=== PATIENT | female | born 1935 | race Caucasian/White ===

== ENCOUNTER 2016-11-12 09:27 | Inpatient (IN) ==
--- NOTE | 2016-11-12 10:58 | EKG Report ---
Stationary ECG Study [facility] Test Date: 11/12/2016 9:39:25 AM Pat Name: CRISTIAN BOLAND Department: Room: Gender: F Assistant In Nursing: : 1935 Requested by: Venkatesh Luz Order Number: [id number] Reading MD: VALENTÍN DOMINGUEZ Intervals [place] Rate: 47 P: -28 GA: 126 QRS: -65 QRSD: 162 T: 2 QT: 537 QTc: 500 Interpretive Statements SINUS BRADYCARDIA RIGHT BUNDLE BRANCH BLOCK LEFT ANTERIOR FASCICULAR BLOCK Electronically Signed On 11-13-16 09:19:59 CDT by VALENTÍN DOMINGUEZ [email or web address]
[2016-11-12 11:00] LABS: Basophils % 0.8 % (0.0-0.8); Eosinophils # 0.1 10*3/uL (0.0-0.87); Eosinophils % 2.5 % (0.00-10.9); Hematocrit 28.5 VOL% (35.7-47.0); Hemoglobin 9.6 GM/DL (12.0-16.0); Immature Granulocytes % 0.5 %; Immature Granulocytes Absolute 0.02 #; Lymphocytes # 0.5 10*3/uL (1.4-4.0); Lymphocytes % 11.6 % (21.3-54.2); Mean Corpuscular HGB Conc 33.7 GM/DL (32-36); Mean Corpuscular Hemoglobin 34 PG (27-34); Mean Corpuscular Volume 99.7 FL (87-102); Monocytes # 0.4 10*3/uL (0.11-0.8); Monocytes % 9.8 % (1.7-12.7); Neutrophils % 74.8 % (38.7-73.9); Platelet Count 194 T/CUMM (130-400); Red Blood Count 2.86 MC/CUMM (3.8-5.5); Red Cell Distribution Width 12.3 % (9.3-17.3)
--- NOTE | 2016-11-12 11:08 | XRay Report ---
Referring Physician: Venkatesh Lambert Exam: XR chest 1V portable Date: November 12, 2016 at 10:57 AM Reason: Shortness of breath Comparison: Chest one view portable November 04, 2016 Findings: The cardiac silhouette is again enlarged, and may be an implanted bus driver/monitor. There is also prominent calcified plaque at the thoracic aorta. There are opacities at the right lung base which could represent atelectasis or pneumonia. No pneumothorax is identified, but mild right pleural fluid is suspected. The osseous structures appear stable. Impression: 1. Cardiomegaly. 2. There are opacities at the right lung base which could represent atelectasis or pneumonia. There is also mild right pleural fluid. These findings have slightly increased, and follow-up is recommended to confirm resolution. PROCEDURE INTERPRETED AT [facility] DEPARTMENT OF RADIOLOGY Final Report Signed by: Dr. Xavier Haddad
[2016-11-12 11:20] LABS: Albumin 3.3 G/DL (3.4-5.0); Bilirubin,Total 0.4 MG/DL (0.2-1.0); Calcium 8.5 MG/DL (8.5-10.1); Magnesium 2.2 MG/DL (1.8-2.4); Osmolality,Calculated 268.5 MOS/KG (273-304); Total Protein 5.9 G/DL (6.4-8.3); Troponin I Only 0.026 NG/ML (0.00-0.045)
[2016-11-12 11:22] LABS: Potassium 2.5 MMOL/L (3.5-5.1)
[2016-11-12] MEDS ORDERED: POTASSIUM CHLORIDE 20 MEQ TABLET PO ONE (11:23)
[2016-11-12] MEDS ORDERED: POTASSIUM CHLORIDE 20 MEQ TABLET PO STA (11:26)
--- NOTE | 2016-11-12 11:40 | Emergency Department Note ---
Lionel Vázquez Gwan, am scribing for, and in the presence of, Venkatesh Lambert MD 10:03. Petra Vázquze Phillip K, MD, personally performed the services described in this documentation, ascribed by Alicia Flowers in my presence, and it is both accurate and complete . Arrival - Arrival Chief Complaint: Syncope ED Nursing Triage Note: pt had a icm placed at dr baeza office this am. pt was at [employer] eating when she passed out. +n/v Mode of Arrival: Stretcher Limitations: No Limitations Source: Patient, Family, Old Records Reviewed, RN Notes Reviewed Time Seen by Provider: 11/12/16 09:43 - History of Present Illness HPI Narrative: Pt is a 81 y/o female who presents to the ED for further evaluation of syncopal episode that occurred today. Pt has a PMHx of Femoral Popliteal Bypass Graft, CAD, PVD, DC, HTN, Thyroid disorder, obstructive sleep apnea, COPD and uterine CA. Family stated that pt was present to receive internal monitor today by Dr. Baeza. After procedure, pt and family reported to [facility] for breakfast and before eating pt had syncopal episode. Family conformed that pt became diaphoretic and passed out. 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 Patient confirmed that she felt "funny" right before episode and that she had a NGUYEN when she left the hospital after her procedure. Family confirmed that pt was unresponsive for 4 minutes. No other problems/complaints reported in ED. Onset (ago): minute(s) Consistency: constant Severity: moderate Allergies/Adverse Reactions: Allergies Allergy/AdvReac Type Severity Reaction Status Date / Time adhesive tape Allergy RASH Verified 11/12/16 06:05 Penicillins Allergy RASH Verified 11/12/16 06:05 Sulfa (Sulfonamide Allergy RASH Verified 11/12/16 06:05 Antibiotics) sulfamethoxazole Allergy RASH Verified 11/12/16 06:05 [From Bactrim] trimethoprim [From Bactrim] Allergy RASH Verified 11/12/16 06:05 Home Medications: Home Medications Medication Instructions Recorded Confirmed Type Aspirin [Ecotrin] 81 mg PO QAM 02/24/15 11/12/16 History Labetalol Tab [Trandate Tab] 100 mg PO QAM 02/24/15 11/12/16 History Levothyroxine Tab [Synthroid Tab] 75 mcg PO QAM 02/24/15 11/12/16 History Pravastatin [Pravachol] 40 mg PO BEDTIME 02/24/15 11/12/16 History Clopidogrel [Plavix] 75 mg PO QAM 04/17/16 11/12/16 History Pantoprazole Tab [Protonix Tab] 40 mg PO QAM 04/17/16 11/12/16 History Aclidinium Violet [Tudorza 400 mcg IH BID 07/31/16 11/12/16 History Pressair] Budesonide/Formoterol Fumarate 2 puffs INH BID 11/04/16 11/12/16 History [Symbicort 160-4.5 Mcg Inhaler] Chlorthalidone [Chlorthalidone] 25 mg PO QAM 11/04/16 11/12/16 History Ferrous Sulfate [Ferrous Sulfate 325 mg PO BID 11/04/16 11/12/16 History Cap] Furosemide [Furosemide] 40 mg PO DAILY PRN 11/04/16 11/12/16 History Isosorbide Mononitrate [Isosorbide 60 mg PO QAM 11/04/16 11/12/16 History Mononitrate ER] Nitroglycerin [Nitroglycerin SL 0.4 mg SL Q5M PRN 11/04/16 11/12/16 History Tab] Review of System - Review of System 12 point system: reviewed and no additional remarkable complaints except as stated - Review of System Constitutional: Present: as per HPI, diaphoresis. Absent: chills, fever Respiratory: Absent: cough Cardiovascular: Present: syncope. Absent: chest pain Gastrointestinal: Present: as per HPI, nausea, vomiting Genitourinary female: Absent: dysuria, discharge Musculoskeletal: Absent: arm pain, back pain, lower back pain, leg pain Skin: Absent: rash Medical,Surgical,& Family Hx - Medical History Cardio: History of: CAD, Hypertension, DC, PVD Neurology: No history of: Brain Aneurysm, Cerebral Hemorrhage, Cerebrovascular Accident , Cerebral Palsy, Dementia, Migraine, Multiple Sclerosis, Parkinson's Disease, Peripheral Neuropathy, Seizures, TIA, Vertigo, Neurologocal Cancer HEENT: History of: Eye Problem (AMD) Endocrine: History of: Thyroid Disorder (hypothyroid) No history of: Diabetes Mellitus (IDDM), Diabetes Mellitus (NIDDM), Dyslipidemia Respiratory: History of: COPD, Obstructive Sleep Apnea, Pneumonia Genitourinary: History of: Kidney Stones, Recurring Urinary Tract Infections Gastrointestinal: History of: GERD, Gastrointestinal Bleed (2015), Polyps Musculoskeletal: History of: Musculoskeletal Problems (arthritis) Hematology: History of: Bleeding Problems (GI bleed 2014) Reproductive: History of: Reproductive Cancer (cervical) Other: History of: Cancer (uterine cancer) - Surgical History Cardiac Surgeries: Sugical HX of: Femoral-Popliteal Bypass Graft, Cardiac Catheterization (april 2016, stents), Cardiac Surgery (heart stents in place.By pass in left leg.) Thoracic Surgeries: Patient denies;: Organ Transplant Neurologic Surgeries: Patient denies: Brain Aneurysm, Cerebral Hemorrhage, Neurologic Surgery HEENT Surgeries: Surgical HX of: Eye Surgery (cataract surgery), Thyroid Surgery (hypothyroidism), Tonsilectomy & Adenoidectomy Abdominal Surgeries: Surgical HX of: Appendectomy, Colonoscopy Reproductive Surgeries: Surgical HX of;: Hysterectomy (1961) Orthopedic Surgeries: Surgical HX of;: Implanted Devices (tawanna to right leg), Orthopedic Surgery (right rotator cuff repair, right knee surgery, right hip fracture) - Family History Family History: Reports;: Family Diabetes (both sons), Family Heart Disease ( father had heart attack) Denies;: Family Cancer - Social History Smoking Status: Former smoker Frequency of Alcohol Use: Frequently Type of Drug Use: None Exam Vital Signs: Vital Signs Temperature 96.8 F L 11/12/16 09:35 Pulse Rate 47 L 11/12/16 09:46 Respiratory Rate 18 11/12/16 09:54 Blood Pressure 150/44 11/12/16 09:46 O2 Sat by Pulse Oximetry 92 L 11/12/16 09:35 - General General appearance: alert, in no apparent distress - Head Head exam: Present: atraumatic, normocephalic - Eye Eye exam: Present: normal appearance, PERRL, EOMI - ENT ENT exam: Present: normal oropharynx, mucous membranes moist, TM's normal bilaterally, normal external ear exam - Neck Neck exam: Present: full ROM, trachea midline. Absent: tenderness, meningismus - Chest Chest inspection: Present: symmetric chest wall rise. Absent: tenderness - Respiratory Respiratory exam: Present: rales (bilateral bases) - Cardiovascular Cardiovascular exam: Present: normal rhythm, bradycardia - Abdominal Exam Abdominal exam: Present: soft, normal bowel sounds. Absent: distention, tenderness - Extremities Exam Extremities exam: Present: full ROM, other (trace edema bilateral lower extremities) - Back Exam Back exam: Present: full ROM. Absent: tenderness - Neurological Exam Neurological exam: Present: alert, CN II-XII intact. Absent: motor sensory deficit - Psychiatric Psychiatric exam: Present: normal affect, normal mood - Skin Skin exam: Present: warm, dry, intact, normal color Course Course Narrative: Patient discussed with Dr. Kelly who will admit for further monitoring and potassium replacement. We will stop the chlorthalidone and possibly labetalol. Patient was tilt negative. Patient blood pressure was noted to be low when I return to the room to tell her that we will be admitting her overnight. Results - Labs CBC & BMP: 11/12/16 10:00 11/12/16 10:00 Lab Results: I have reviewed the patients labs Labs: Laboratory Tests 11/12/16 10:00 WBC 4.0 RBC 2.86 L Hgb 9.6 L Hct 28.5 L Plt Count 194 Neut % (Auto) 74.8 H Lymph % (Auto) 11.6 L Lymph # (Auto) 0.5 L Laboratory Tests 11/12/16 10:00 Sodium 132 L Potassium 2.5 L* Chloride 90 L Carbon Dioxide 35 H BUN 21 H Creatinine 0.80 BUN/Creatinine Ratio 26.00 H Glucose 135 H Calculated Osmolality 268.5 L Total Protein 5.9 L Albumin 3.3 L - EKG EKG results: interpreted by MELINA, sinus rhythm (Right bundle branch block, left anterior hemiblock) - Diagnostic Findings Procedure: Chest x-ray: report reviewed by me (1. Cardiomegaly. 2. There are opacities at the right lung base which could represents atelectasis or pneumonia. There is also mild right pleural fluid. These findings have slightly increased and follow-up is recommended to confirm resolution. ) Disposition Clinical Impression: Syncope, Hypokalemia
[2016-11-12] MEDS ORDERED: MAGNESIUM SULF RIDER 2 GM in PREMIX 1 EACH IV PRN ×2 (11:42→14:26)
[2016-11-12] MEDS ORDERED: MAGNESIUM SULF RIDER 4 GM in PREMIX 1 EACH IV PRN (11:42)
[2016-11-12] MEDS ORDERED: DIAZEPAM 5 MG TABLET PO ONE (14:26)
[2016-11-12] MEDS ORDERED: diphenhydrAMINE CAP 25 MG CAPSULE PO ONE (14:26)
--- NOTE | 2016-11-12 15:04 | Cardiology History & Physical ---
Assessment and Plan - Time spent with patient Time spent with patient: Greater than 30 minutes (1) Symptomatic bradycardia Status: Acute Current Visit: Yes (2) Hypokalemia Status: Acute Current Visit: Yes (3) Syncope Status: Acute Current Visit: Yes (4) Chest pain Status: Acute Current Visit: No Qualifiers: Ischemic chest pain type: unstable angina pectoris (5) CAD (coronary artery disease) Status: Chronic Current Visit: No Qualifiers: Coronary Disease-Associated Artery/Lesion type: [place] artery [place] vs. transplanted heart: [place] heart Associated angina: with unstable angina Qualified Code(s): I25.110 - Atherosclerotic heart disease of [place] coronary artery with unstable angina pectoris (6) Hypertension Status: Chronic Current Visit: No Qualifiers: Hypertension type: essential hypertension Qualified Code(s): I10 - Essential (primary) hypertension History of Present Illness Chief complaint: Passed out History of present illness: Ms. Wesley is a 81 year old female patient admitted today for eye link device earlier this morning. At that time her daughter tested that she been having chest pain. The patient denied chest pain I recommended left heart catheterization before proceeding with a Linq if she been having chest pain and taking nitroglycerin as her daughter stated and she stated. She wished not to do that she would adjust medicines. We proceeded and put in her Linq device and made arrangements for her to hot die picker Ranexa from the office. She picked up Ranexa from our office after being discharged she went to the [employer] [place] they brought her food and she passed out and slumped over in her food. She came back to the emergency room that time she had bradycardia. Her device was interrogated by the [employer] call center support representative I have not yet seen it but I was told that her heart rate went up and in the 20s and 30s and a very wide complex. The patient denies any chest pain. She did not lose bowel or bladder control she was came back to the emergency room for evaluation I discussed with Dr. Lambert she was admitted to the floor I saw her on the floor. I stand with the recommendation that she needs a left heart catheterization given his episodic bradycardic episodes which may be related to her AV torrie blocking agent which we have decreased now twice or we must consider there is a complication or progressive disease in the right coronary artery. We had PCI of the right coronary artery in 2015 of this year and she certainly still within a timeframe of high risk of in-stent restenosis. This vessel had been ballooned in the past and had a type F dissection another facility but was back open when I saw her. Again the patient denies chest pain the daughter states she has chest pain she wishes to proceed with cath. The patient is agreeable. Home Medications Medication Instructions Recorded Confirmed Type Aspirin [Ecotrin] 81 mg PO QAM 02/24/15 11/12/16 History Labetalol Tab [Trandate Tab] 100 mg PO QAM 02/24/15 11/12/16 History Levothyroxine Tab [Synthroid Tab] 75 mcg PO QAM 02/24/15 11/12/16 History Pravastatin [Pravachol] 40 mg PO BEDTIME 02/24/15 11/12/16 History Clopidogrel [Plavix] 75 mg PO QAM 04/17/16 11/12/16 History Pantoprazole Tab [Protonix Tab] 40 mg PO QAM 04/17/16 11/12/16 History Aclidinium [place] [Tudorza 400 mcg IH BID 07/31/16 11/12/16 History Pressair] Budesonide/Formoterol Fumarate 2 puffs INH BID 11/04/16 11/12/16 History [Symbicort 160-4.5 Mcg Inhaler] Chlorthalidone [Chlorthalidone] 25 mg PO QAM 11/04/16 11/12/16 History Ferrous Sulfate [Ferrous Sulfate 325 mg PO BID 11/04/16 11/12/16 History Cap] Furosemide [Furosemide] 40 mg PO DAILY 11/04/16 11/12/16 History Isosorbide Mononitrate [Isosorbide 60 mg PO QAM 11/04/16 11/12/16 History Mononitrate ER] Nitroglycerin [Nitroglycerin SL 0.4 mg SL Q5M PRN 11/04/16 11/12/16 History Tab] Allergies Allergy/AdvReac Type Severity Reaction Status Date / Time adhesive tape Allergy RASH Verified 11/12/16 06:05 Penicillins Allergy RASH Verified 11/12/16 06:05 Sulfa (Sulfonamide Allergy RASH Verified 11/12/16 06:05 Antibiotics) sulfamethoxazole Allergy RASH Verified 11/12/16 06:05 [From Bactrim] trimethoprim [From Bactrim] Allergy RASH Verified 11/12/16 06:05 - Constitutional Constitutional: Absent: anorexia, chills - EENT Eyes: Absent: blurry vision, diplopia Nose, mouth and throat: Absent: dysphagia - Cardiovascular Cardiovascular: Present: chest pain at rest, chest pain with activity, dyspnea, dyspnea on exertion, other (Syncope and bradycardia) - Respiratory Respiratory: Present: dyspnea, dyspnea on exertion - Gastrointestinal Gastrointestinal: Absent: abdominal pain, bloating, dyspepsia, vomiting, jaundice - Genitourinary Genitourinary: Absent: abnormal vaginal bleeding - Musculoskeletal Musculoskeletal: Present: arthralgias. Absent: joint swelling - Neurological Neurological: Absent: abnormal gait, abnormal speech - Psychiatric Psychiatric: Present: depression. Absent: anxiety - Endocrine Endocrine: Absent: cold intolerance, heat intolerance - Hematologic/Lymphatic Hematologic/Lymphatic: Present: easy bleeding, easy bruising Medical,Surgical,& Family Hx - Medical History Cardio: History of: CAD, Hypertension, NE, PVD Neurology: No history of: Brain Aneurysm, Cerebral Hemorrhage, Cerebrovascular Accident , Cerebral Palsy, Dementia, Migraine, Multiple Sclerosis, Parkinson's Disease, Peripheral Neuropathy, Seizures, TIA, Vertigo, Neurologocal Cancer HEENT: History of: Eye Problem (AMD) Endocrine: History of: Thyroid Disorder (hypothyroid) No history of: Diabetes Mellitus (IDDM), Diabetes Mellitus (NIDDM), Dyslipidemia Respiratory: History of: COPD, Obstructive Sleep Apnea, Pneumonia Genitourinary: History of: Kidney Stones, Recurring Urinary Tract Infections Gastrointestinal: History of: GERD, Gastrointestinal Bleed (2014), Polyps Musculoskeletal: History of: Musculoskeletal Problems (arthritis) Hematology: History of: Bleeding Problems (GI bleed 2014) Reproductive: History of: Reproductive Cancer (cervical) Other: History of: Cancer (uterine cancer) - Surgical History Cardiac Surgeries: Sugical HX of: Femoral-Popliteal Bypass Graft, Cardiac Catheterization (april 2016, stents), Cardiac Surgery (heart stents in place.By pass in left leg.) Thoracic Surgeries: Patient denies;: Organ Transplant Neurologic Surgeries: Patient denies: Brain Aneurysm, Cerebral Hemorrhage, Neurologic Surgery HEENT Surgeries: Surgical HX of: Eye Surgery (cataract surgery), Thyroid Surgery (hypothyroidism), Tonsilectomy & Adenoidectomy Abdominal Surgeries: Surgical HX of: Appendectomy, Colonoscopy Reproductive Surgeries: Surgical HX of;: Hysterectomy (1961) Orthopedic Surgeries: Surgical HX of;: Implanted Devices (tawanna to right leg), Orthopedic Surgery (right rotator cuff repair, right knee surgery, right hip fracture) - Family History Family History: Reports;: Family Diabetes (both sons), Family Heart Disease ( father had heart attack) Denies;: Family Cancer - Social History Smoking Status: Former smoker Frequency of Alcohol Use: Frequently Type of Drug Use: None Marital Status: Lives With:: Children Functional capacity: uses cane/walker Cardiology Physical Exam - Constitutional Vitals: Vital Signs Temp Pulse Resp BP Pulse Ox 97.9 F 52 L 18 141/67 94 L 11/12/16 12:21 11/12/16 12:21 11/12/16 12:21 11/12/16 12:21 11/12/16 12:21 Intake and Output 11/11/16 11/12/16 11/12/16 23:59 07:59 15:59 Other: Weight 67.132 kg Patient Weight 11/12/16 23:59 Weight 67.132 kg General appearance: normal weight - Head Head exam: Present: normal inspection - Eye Eye exam: Present: EOMI Pupils: Present: TA - Neck Neck exam: Present: normal inspection - Respiratory Respiratory exam: Present: clear to auscultation bilaterally - Cardiovascular Cardiovascular exam: Present: regular rate and rhythm - GI/Abdominal GI/Abdominal exam: Present: normal bowel sounds - Extremities Exam Extremities exam: Present: normal inspection - Back Exam Back exam: Present: normal inspection - Neurological Exam Neurological exam: Present: alert, oriented X3 - Psychiatric Psychiatric exam: Present: normal affect, depressed - Skin Skin exam: Present: normal color, warm, erythema Result/EKG - Labs CBC & BMP: 11/12/16 10:00 11/12/16 10:00 - EKG EKG results: interpreted by me (Sinus bradycardia right bundle branch block)
[2016-11-12] MEDS ORDERED: HEPARIN/NACL 0.9% 2 UNITS/ML 1,000 ML IV ONE (15:05)
[2016-11-12] MEDS ORDERED: LIDOCAINE 1% 20 ML VIAL ONE (15:05)
--- NOTE | 2016-11-12 15:08 | History and Physical Update ---
Sedation H&P Update - History and Physical H&P was reviewed, the patient examined and there: are no changes in the patients condition since last H&P was completed. - Dictation Physical: refer to H&P completed by admitting physician - Physical Exam Mental Status: alert and oriented Heart: regular rate and rhythm Lung: clear to auscultation Abdomen: within normal limits Vitals: within normal limits - Sedation Plan for Sedation: moderate Patient Consent: Procedure disscussed with patient and patinet has consented., Risks and benefits were discussed with patient,including infection,, bleeding, injury to surrounding structures, seizure, temporary nerve, Patient understands and accepts potential risks/benefits and agrees to, proceed. ASA Class: III Airway Assessment: Class III: Soft palate, base of uvula visible
[2016-11-12] MEDS ORDERED: HEPARIN/NACL 0.9% 2 UNITS/ML 500 ML IV ONE (15:17)
[2016-11-12] MEDS ORDERED: fentaNYL 100 MCG/2 ML VIAL ONE (15:20)
[2016-11-12] MEDS ORDERED: MIDAZOLAM 2 MG/2 ML VIAL ONE (15:20)
[2016-11-12] MEDS ORDERED: ENOXAPARIN 60 MG/0.6 ML SYRINGE ONE (15:28)
[2016-11-12] MEDS ORDERED: CLOPIDOGREL 300 MG TABLET ONE (15:37)
--- NOTE | 2016-11-12 15:46 | Cardiac Catheterization ---
Date of Procedure:: 11/12/16 Pre-op Diagnosis: unstable angina and symptomatic bradycardia Post-op diagnosis: other (UA secondary to high grade mid LCx stenosis (90% pre PCI and 0% post PCI)) Procedure: Procedures: 1. Selective left and right coronary angiography 2. Right femoral and iliac angiographically 3. PCI of the mLCx with 2.5 x 8 mm Xience HERMILA 4. Closure of the right femoral arteriotomy with a Mynx closure device After consent was taken from the patient. Taken to the catheterization lab for left heart catheterization via the femoral artery. Time out was taken and recorded. 1% lidocaine was infiltrated in the skin and subcutaneous tissue overlying the right femoral artery. Modified Seldinger technique and an 18- gauge Cook needle was used for access to the right femoral artery. An 0.35 J- wire was advanced through the needle into the central aorta under fluoroscopy. A small skin was made and a 6 [place] sheath was placed over the wire. The sheath was aspirated and flushed. A JL46 was advanced over the wires in the left main coronary artery was selectively engaged. Multiple orthogonal views of the left system were obtained. The catheter was then exchanged over the wire. The sheath was aspirated and flushed. A JR4 catheter was advanced over the wire into the central aorta. The right coronary was selectively engaged and orthogonal views of the right coronary artery were obtained. The catheter was then exchanged over the wire, the sheath was aspirated and flushed. At this time an angled pigtail catheter was advanced across the aortic valve into the ventricle. Pressure measurements were obtained and pullback measurements were performed. The power digger operator reviewed the films. The room was set up for the intervention mode. Lovenox 40mg IV was given on the background of chronic clopidogrel therapy. At this time an EBU 3.5 guiding catheter was advanced over the wire and the left main coronary artery was engaged. A 180cm CloudMade Prowater was advanced into the distal LCx. A 2.5 X 8mm balloon was used to pre-dilate the high grade stenosis. There was significant difficulty advancing the wire and the balloon across the lesion. The lesion yielded nicely. The balloon was then removed and stented with a 2.5 X 8 mm Xience HERMILA with excellent angiographic results. There was a good stepup and stepdown at the area of stenosis. CHEMO-3 flow is in the vessel. The sheath was aspirated and flushed and a right femoral and iliac angiography was performed. The access site was amenable for closure and the area was reprepped with ChloraPrep and draped with sterile towels. The Mynx closure device was used in standard technique. There was no hematoma and distal pulses were good. Total contrast exposure 90 cc of Omnipaque total fluoroscopy time 3 minutes and total fluoroscopy dose 365 mGy FINDINGS: Ao: 145/52 LM: Mild luminal irregularity LAD: This vessel has no significant fixed atheroma. LCx: This is a large though nondominant vessel. There is ostial stenosis at the takeoff the first obtuse marginal. Just after this there is a high-grade 90 % stenosis with CHEMO-3 flow in the mid left circumflex pre-PCI and less than 10 % residual or 0% angiographic residual stenosis post PCI. There is CHEMO III flow in the vessel. There is mild stenosis at the takeoff of the small second obtuse marginal and the bifurcation type pattern there is also stenosis in the left circumflex portion of this vessel. This was not disrupted or intervened upon. RCA: The previously placed stent in the proximal RCA is widely patent. There is diffuse disease in the mid segment of the RCA that appears unchanged from the previous cath after PCI. It is moderate stenosis up to 50%. RFA/NORBERTO: The previously deployed stents in the right common femoral and iliac artery are widely patent. Access is below the stent but above common femoral that is highly diseased approximately 80+% stenosis in the superficial femoral artery with sluggish flow. Her doctor in [place] planned perform intervention on this later this week I think he will likely be postponed. The access was obtained above this area of stenosis. Assessment: 1. Symptomatic bradycardia 2. High-grade mid left circumflex stenosis status post successful PCI with HERMILA as described above 3. High-grade superficial femoral artery stenosis just below the bifurcation common femoral PLAN: 1. Discontinue beta-selene 2. Observation on telemetry with aggressive medical therapy 3. Monitor for indications for pacing Implants: 2.5 X 8 mm Xience HERMILA Anesthesia: moderate conscious sedation Surgeon / Physician: Katelyn Evans Candy Cutter Hand: none Estimated blood loss: none Specimens: none sent Condition: stable Disposition: floor - Medications / Follow-up
[2016-11-12] MEDS ORDERED: NITROGLYCERIN SL 0.4 MG TABLET SL PRN (16:44)
[2016-11-12 18:01] LABS: Magnesium 2.4 MG/DL (1.8-2.4); Potassium 2.9 MMOL/L (3.5-5.1)
[2016-11-12] MEDS ORDERED: ACETAMINOPHEN 325 MG TABLET PO PRN (19:33)
[2016-11-12] MEDS: BUDESONIDE/FORMOTEROL 160-4.5 INHALER 6 GM INH SCH (21:07)
[2016-11-12] MEDS: FERROUS SULFATE 325 MG TABLET PO SCH (21:09)
[2016-11-12] MEDS: MAGNESIUM OXIDE 400 MG TABLET PO SCH (21:10)
[2016-11-12] MEDS: PRAVASTATIN 20 MG TABLET PO SCH (21:10)
[2016-11-12] MEDS: IPRATROPIUM 500 MCG/2.5 ML NEB RESP TX SCH (21:10)
[2016-11-12] MEDS: POTASSIUM CHLORIDE 20 MEQ TABLET PO SCH (21:13)
[2016-11-12] MEDS: POTASSIUM CHLORIDE RIDER 10 MEQ in PREMIX 1 EACH IV PRN (23:38)
[2016-11-13] MEDS: POTASSIUM CHLORIDE RIDER 10 MEQ in PREMIX 1 EACH IV PRN (02:03)
[2016-11-13 05:15] LABS: Basophils % 0.7 % (0.0-0.8); Eosinophils # 0.1 10*3/uL (0.0-0.87); Eosinophils % 4.6 % (0.00-10.9); Hematocrit 26.5 VOL% (35.7-47.0); Hemoglobin 8.7 GM/DL (12.0-16.0); Immature Granulocytes % 0.4 %; Immature Granulocytes Absolute 0.01 #; Lymphocytes # 0.5 10*3/uL (1.4-4.0); Lymphocytes % 15.8 % (21.3-54.2); Mean Corpuscular HGB Conc 32.8 GM/DL (32-36); Mean Corpuscular Hemoglobin 33 PG (27-34); Mean Corpuscular Volume 100.8 FL (87-102); Mean Platelet Volume 11.9 FL (9.6-12.0); Monocytes # 0.4 10*3/uL (0.11-0.8); Monocytes % 12.3 % (1.7-12.7); Neutrophils # 1.9 10*3/uL (1.4-7.4); Neutrophils % 66.2 % (38.7-73.9); Platelet Count 152 T/CUMM (130-400); Red Blood Count 2.63 MC/CUMM (3.8-5.5); Red Cell Distribution Width 12.6 % (9.3-17.3); White Blood Count 2.9 T/CUMM (4-12)
[2016-11-13 05:44] LABS: Calcium 8.2 MG/DL (8.5-10.1); Magnesium 2.4 MG/DL (1.8-2.4); Osmolality,Calculated 270.1 MOS/KG (273-304); Potassium 3.2 MMOL/L (3.5-5.1)
[2016-11-13] MEDS: LEVOTHYROXINE 75 MCG TABLET PO SCH (06:41)
--- NOTE | 2016-11-13 07:30 | EKG Report ---
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
[2016-11-13] MEDS: IPRATROPIUM 500 MCG/2.5 ML NEB RESP TX SCH ×4 (07:51→20:51)
[2016-11-13] MEDS ORDERED: CLOPIDOGREL 75 MG TABLET PO SCH (09:00)
[2016-11-13] MEDS: FERROUS SULFATE 325 MG TABLET PO SCH ×2 (09:22→20:17)
[2016-11-13] MEDS: ISOSORBIDE MONONITRATE 60 MG TABLET PO SCH (09:22)
[2016-11-13] MEDS: ASPIRIN EC 81 MG TABLET PO SCH (09:22)
[2016-11-13] MEDS: MAGNESIUM OXIDE 400 MG TABLET PO SCH ×2 (09:23→20:17)
[2016-11-13] MEDS: POTASSIUM CHLORIDE 20 MEQ TABLET PO SCH ×2 (09:23→20:17)
[2016-11-13] MEDS: PANTOPRAZOLE 40 MG TABLET PO SCH (09:24)
[2016-11-13] MEDS: CLOPIDOGREL 75 MG TABLET PO SCH (09:24)
[2016-11-13] MEDS: BUDESONIDE/FORMOTEROL 160-4.5 INHALER 6 GM INH SCH ×2 (10:19→20:18)
--- NOTE | 2016-11-13 10:51 | Cardiology Progress Note ---
Assessment and Plan - Time spent with patient Time spent with patient: Greater than 30 minutes (discussion with lactation consultant and patient/family, exam, documentation and orders.) (1) Symptomatic bradycardia Status: Acute Current Visit: Yes (2) Hypokalemia Status: Acute Current Visit: Yes (3) Syncope Status: Acute Assessment and plan: secondary to sinus arrest and underlying intrinsic conduction disease Current Visit: Yes (4) CAD (coronary artery disease) Status: Chronic Current Visit: No Qualifiers: Coronary Disease-Associated Artery/Lesion type: [place] artery [place] vs. transplanted heart: [place] heart Associated angina: with unstable angina Qualified Code(s): I25.110 - Atherosclerotic heart disease of [place] coronary artery with unstable angina pectoris (5) Hypertension Status: Chronic Current Visit: No Qualifiers: Hypertension type: essential hypertension Qualified Code(s): I10 - Essential (primary) hypertension (6) Sinus arrest Status: Acute Current Visit: Yes (7) Right bundle branch block Status: Chronic Current Visit: Yes Cardiology - PN: Subj Interval history: Ms. Wesley has no more complaints today. She has not had any chest pain her cath site looks good. She have a slight decrease in her hemoglobin I think this is hydration. Her potassium is slowly coming up. I reviewed the tracings and the link tracings with Dr. Mahoney I will ask him to see her but I feel she needs a pacemaker. She has these sinus arrest and intrinsic conduction delay with a right bundle branch block which results in very slow escape rhythms. She is off her beta-selene but will need a beta-selene because of her underlying coronary artery disease. I discussed this with the patient and her daughter they are willing to proceed if recommended by Dr. Mahoney. Dr. Mahoney will see later today. Exam (Progress Note) - Constitutional Vitals: Period Temp Pulse Resp BP Sys/Jerez Pulse Ox Last 24 Hr 97.1 F-98.0 F 48-92 0-20 99-164/41-87 90-100 General appearance: normal weight - Head Head exam: Present: normal inspection - Eye Eye exam: Present: EOMI Pupils: Present: TA - ENT ENT exam: Present: normal exam - Neck Neck exam: Present: normal inspection - Respiratory Respiratory exam: Present: clear to auscultation bilaterally - Cardiovascular Cardiovascular exam: Present: regular rate and rhythm, other (Cath site looks good and soft) - GI/Abdominal GI/Abdominal exam: Present: normal bowel sounds - Extremities Exam Extremities exam: Present: normal inspection, other (Cath site looks good) - Back Exam Back exam: Present: normal inspection - Neurological Exam Neurological exam: Present: alert, oriented X3 - Psychiatric Psychiatric exam: Present: normal affect, normal mood - Skin Skin exam: Present: normal color, warm, dry Result/EKG - Labs CBC & BMP: 11/13/16 04:53 11/13/16 04:53 Labs: Laboratory Results - last 24 hr 11/12/16 11/13/16 11/13/16 16:51 04:53 04:53 WBC 2.9 L RBC 2.63 L Hgb 8.7 L Hct 26.5 L MCV 100.8 MCH 33 MCHC 32.8 RDW 12.6 Plt Count 152 D MPV 11.9 Neut % (Auto) 66.2 Lymph % (Auto) 15.8 L [place] % (Auto) 12.3 Eos % (Auto) 4.6 Baso % (Auto) 0.7 Neut # (Auto) 1.9 Lymph # (Auto) 0.5 L [place] # (Auto) 0.4 Eos # (Auto) 0.1 Baso # (Auto) 0.0 Immature Gran % 0.4 Nucleated RBC % 0.0 Immature Gran # 0.01 Nucleated RBCs # 0.00 Sodium 135 L Potassium 2.9 L 3.2 L Chloride 95 L Carbon Dioxide 33 H Anion Gap 10.2 BUN 16 Creatinine 0.80 GFR Calculation 67 BUN/Creatinine Ratio 20.00 Glucose 99 Calculated Osmolality 270.1 L Calcium 8.2 L Magnesium 2.4 2.4 Quality Measures - VTE Contraindication to Pharmacological VTE Prophylaxis: Already on Theraputic Agent , No Prophylaxis Needed Specialty Discharge - Follow Up or Referrals
[2016-11-13] MEDS ORDERED: VANCOMYCIN INJ 1,000 MG in SODIUM CHLORIDE 0.9% 250 ML IV ONE (12:45)
--- NOTE | 2016-11-13 12:49 | Electrophysiology Consultation ---
History of Present Illness - Data of Consult Patient: new to practice Consult date: 11/13/16 Requesting Physician: Katelyn Baeza - Consult Narrative Reason for consult: syncope History of present illness: Ms. Wesley is a 81 year old female, followed by dr. baeza. History of CAD, status post RCA PCI and CX PCI, PAD, status post lower extremity bypass surgery. She had episodes of syncope in the past, noninvasive monitoring was unrevealing. She underwent a loop recorder implant few days ago, and on the same day, she developed an episode of symptomatic bradycardia, while waiting for her food in [facility]. The ILR recorded wide QRS escape rhythm, in the 30s, the P-wave amplitude is low. There were no injuries. She had episodes of chest pains recently, for which she underwent circumflex PCI yesterday. Recovered well from the procedure. So far, no evidence of recurrent, symptomatic bradycardia on telemetry. EKG shows sinus rhythm, right bundle branch block/left anterior fascicular block. Occasional PACs and PVCs. She was hypokalemic, and anemic. She is on aspirin and Plavix for recent PCI. Hypothyroidism, controlled with Synthroid. CC: Katelyn Baeza, DO - Home Medications and Allergies Home Medications: Home Medications Medication Instructions Recorded Confirmed Type Aspirin [Ecotrin] 81 mg PO QAM 02/24/15 11/12/16 History Labetalol Tab [Trandate Tab] 100 mg PO QAM 02/24/15 11/12/16 History Levothyroxine Tab [Synthroid Tab] 75 mcg PO QAM 02/24/15 11/12/16 History Pravastatin [Pravachol] 40 mg PO BEDTIME 02/24/15 11/12/16 History Clopidogrel [Plavix] 75 mg PO QAM 04/17/16 11/12/16 History Pantoprazole Tab [Protonix Tab] 40 mg PO QAM 04/17/16 11/12/16 History Aclidinium [place] [Tudorza 400 mcg IH BID 07/31/16 11/12/16 History Pressair] Budesonide/Formoterol Fumarate 2 puffs INH BID 11/04/16 11/12/16 History [Symbicort 160-4.5 Mcg Inhaler] Chlorthalidone [Chlorthalidone] 25 mg PO QAM 11/04/16 11/12/16 History Ferrous Sulfate [Ferrous Sulfate 325 mg PO BID 11/04/16 11/12/16 History Cap] Furosemide [Furosemide] 40 mg PO DAILY 11/04/16 11/12/16 History Isosorbide Mononitrate [Isosorbide 60 mg PO QAM 11/04/16 11/12/16 History Mononitrate ER] Nitroglycerin [Nitroglycerin SL 0.4 mg SL Q5M PRN 11/04/16 11/12/16 History Tab] Allergies/Adverse Reactions: Allergies Allergy/AdvReac Type Severity Reaction Status Date / Time adhesive tape Allergy RASH Verified 11/12/16 06:05 Penicillins Allergy RASH Verified 11/12/16 06:05 Sulfa (Sulfonamide Allergy RASH Verified 11/12/16 06:05 Antibiotics) sulfamethoxazole Allergy RASH Verified 11/12/16 06:05 [From Bactrim] trimethoprim [From Bactrim] Allergy RASH Verified 11/12/16 06:05 Medical,Surgical,& Family Hx - Medical History Cardio: History of: CAD, Hypertension, [place], PVD Neurology: No history of: Brain Aneurysm, Cerebral Hemorrhage, Cerebrovascular Accident , Cerebral Palsy, Dementia, Migraine, Multiple Sclerosis, Parkinson's Disease, Peripheral Neuropathy, Seizures, TIA, Vertigo, Neurologocal Cancer HEENT: History of: Eye Problem (AMD) Endocrine: History of: Thyroid Disorder (hypothyroid) No history of: Diabetes Mellitus (IDDM), Diabetes Mellitus (NIDDM), Dyslipidemia Respiratory: History of: COPD, Obstructive Sleep Apnea, Pneumonia Genitourinary: History of: Kidney Stones, Recurring Urinary Tract Infections Gastrointestinal: History of: GERD, Gastrointestinal Bleed (2014), Polyps Musculoskeletal: History of: Musculoskeletal Problems (arthritis) Hematology: History of: Bleeding Problems (GI bleed 2014) Reproductive: History of: Reproductive Cancer (cervical) Other: History of: Cancer (uterine cancer) - Surgical History Cardiac Surgeries: Sugical HX of: Femoral-Popliteal Bypass Graft, Cardiac Catheterization (april 2016, stents), Cardiac Surgery (heart stents in place.By pass in left leg.) Thoracic Surgeries: Patient denies;: Organ Transplant Neurologic Surgeries: Patient denies: Brain Aneurysm, Cerebral Hemorrhage, Neurologic Surgery HEENT Surgeries: Surgical HX of: Eye Surgery (cataract surgery), Thyroid Surgery (hypothyroidism), Tonsilectomy & Adenoidectomy Abdominal Surgeries: Surgical HX of: Appendectomy, Colonoscopy Reproductive Surgeries: Surgical HX of;: Hysterectomy (1962) Orthopedic Surgeries: Surgical HX of;: Implanted Devices ([place] to right leg), Orthopedic Surgery (right rotator cuff repair, right knee surgery, right hip fracture) - Family History Family History: Reports;: Family Diabetes (both sons), Family Heart Disease ( father had heart attack) Denies;: Family Cancer - Social History Smoking Status: Former smoker Frequency of Alcohol Use: Frequently Type of Drug Use: None 12 point system: reviewed and no additional remarkable complaints except as stated Exam - Constitutional Vitals: Period Temp Pulse Resp BP Sys/Jerez Pulse Ox Last 24 Hr 97.1 F-98.1 F 48-92 0-20 99-164/41-87 86-100 General appearance: normal weight, no acute distress - Head Head exam: Present: normal inspection, normocephalic - Eye Eye exam: Absent: conjunctival injection Pupils: Absent: dilated - ENT ENT exam: Present: normal exam, normal external ear exam - Neck Neck exam: Present: normal inspection - Respiratory Respiratory exam: Present: clear to auscultation bilaterally - Cardiovascular Cardiovascular exam: Present: bradycardia, regular rate and rhythm, systolic murmur, other (Bandage over ILR implant site) - GI/Abdominal GI/Abdominal exam: Present: normal bowel sounds - Extremities Exam Extremities exam: Present: normal inspection, normal capillary refill. Absent: edema - Back Exam Back exam: Present: normal inspection - Neurological Exam Neurological exam: Present: alert, oriented X3 - Psychiatric Psychiatric exam: Present: normal affect, normal mood - Skin Skin exam: Present: normal color, warm. Absent: cyanosis Results - Labs CBC & BMP: 11/13/16 04:53 11/13/16 04:53 Lab Results: I have reviewed the past 24 hour labs Assessment and Plan (1) Syncope Status: Acute Assessment and plan: 81-year-old female, syncope, documented symptomatic bradycardia on ILR, bifascicular block, CAD, PAD, obstructive sleep apnea, hypothyroidism. LVEF was 76% on recent stress test. -We discussed etiology, prognosis, risks and benefits of management options. She has structural heart disease, with high risk presentation and EKG findings for recurrent symptomatic bradycardia. -We will proceed with a dual-chamber pacemaker implant, in conscious sedation, and explant of the loop recorder. -NPO after MN -Once she is protected from bradycardia, we will plan to resume beta-selene for CAD. Current Visit: Yes (2) Hypokalemia Status: Acute Current Visit: Yes (3) Symptomatic bradycardia Status: Acute Current Visit: Yes (4) Sinus arrest Status: Acute Current Visit: Yes (5) Right bundle branch block Status: Chronic Current Visit: Yes Quality Measures - VTE Contraindication to Pharmacological VTE Prophylaxis: Already on Theraputic Agent , No Prophylaxis Needed Specialty Discharge - Follow Up or Referrals
[2016-11-13] MEDS ORDERED: VANCOMYCIN INJ 500 MG in SODIUM CHLORIDE 0.9% 100 ML IV ONE (13:30)
[2016-11-13] MEDS: PRAVASTATIN 20 MG TABLET PO SCH (20:17)
[2016-11-14 06:19] LABS: Basophils % 0.6 % (0.0-0.8); Calcium 8.4 MG/DL (8.5-10.1); Eosinophils # 0.2 10*3/uL (0.0-0.87); Eosinophils % 5.9 % (0.00-10.9); Hemoglobin 8.8 GM/DL (12.0-16.0); Immature Granulocytes % 0.3 %; Immature Granulocytes Absolute 0.01 #; Lymphocytes # 0.6 10*3/uL (1.4-4.0); Lymphocytes % 18.9 % (21.3-54.2); Magnesium 2.3 MG/DL (1.8-2.4); Mean Corpuscular HGB Conc 32.6 GM/DL (32-36); Mean Corpuscular Hemoglobin 33 PG (27-34); Mean Corpuscular Volume 101.5 FL (87-102); Mean Platelet Volume 12.3 FL (9.6-12.0); Monocytes # 0.4 10*3/uL (0.11-0.8); Monocytes % 11.8 % (1.7-12.7); Neutrophils # 2.1 10*3/uL (1.4-7.4); Neutrophils % 62.5 % (38.7-73.9); Platelet Count 147 T/CUMM (130-400); Potassium 3.5 MMOL/L (3.5-5.1); Red Blood Count 2.66 MC/CUMM (3.8-5.5); Red Cell Distribution Width 12.4 % (9.3-17.3); White Blood Count 3.4 T/CUMM (4-12)
--- NOTE | 2016-11-14 07:34 | EKG Report ---
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
[2016-11-14] MEDS: IPRATROPIUM 500 MCG/2.5 ML NEB RESP TX SCH ×4 (07:36→18:48)
--- NOTE | 2016-11-14 07:47 | History and Physical Update ---
Sedation H&P Update - History and Physical H&P was reviewed, the patient examined and there: are no changes in the patients condition since last H&P was completed. - Dictation Physical: refer to H&P completed by admitting physician - Physical Exam Mental Status: alert and oriented Heart: regular rate and rhythm Lung: clear to auscultation Abdomen: within normal limits Vitals: within normal limits - Sedation Plan for Sedation: moderate Patient Consent: Procedure disscussed with patient and patinet has consented., Risks and benefits were discussed with patient,including infection,, bleeding, injury to surrounding structures, seizure, temporary nerve, Patient understands and accepts potential risks/benefits and agrees to ASA Class: IV
[2016-11-14] MEDS: ISOSORBIDE MONONITRATE 60 MG TABLET PO SCH (08:15)
[2016-11-14] MEDS: FERROUS SULFATE 325 MG TABLET PO SCH ×2 (08:15→20:34)
[2016-11-14] MEDS: LEVOTHYROXINE 75 MCG TABLET PO SCH (08:15)
[2016-11-14] MEDS: PANTOPRAZOLE 40 MG TABLET PO SCH (08:16)
[2016-11-14] MEDS: MAGNESIUM OXIDE 400 MG TABLET PO SCH ×2 (08:16→20:34)
[2016-11-14] MEDS: POTASSIUM CHLORIDE 20 MEQ TABLET PO SCH ×2 (08:16→20:34)
[2016-11-14] MEDS: CLOPIDOGREL 75 MG TABLET PO SCH (08:21)
[2016-11-14] MEDS: ASPIRIN EC 81 MG TABLET PO SCH (08:21)
[2016-11-14] MEDS ORDERED: LIDOCAINE 1% 20 ML VIAL ONE ×2 (09:36→11:00)
[2016-11-14] MEDS ORDERED: HEPARIN/NACL 0.9% 2 UNITS/ML 500 ML IV ONE (09:36)
[2016-11-14] MEDS ORDERED: MIDAZOLAM 2 MG/2 ML VIAL ONE ×2 (09:40→10:34)
[2016-11-14] MEDS ORDERED: fentaNYL 100 MCG/2 ML VIAL ONE ×2 (09:40→10:34)
[2016-11-14] MEDS ORDERED: TISSUE ADHESIVE 1 EACH APPLICATOR TOP ONE ×2 (11:01→11:05)
[2016-11-14] MEDS ORDERED: oxyCODONE/ACETAMINOPHEN 5-325 MG TABLET PO PRN (11:14)
--- NOTE | 2016-11-14 11:25 | Cardiac Pacemaker ---
- Preoperative diagnosis Date of Procedure:: 11/14/16 Preoperative Diagnosis: Documented nonreversible symptomatic bradycardia due to Post-op diagnosis: other (UA secondary to high grade mid LCx stenosis (90% pre PCI and 0% post PCI)) Procedure: PROCEDURE SUMMARY DDD pacemaker implant from left axillary vein access. ILR explant. PLAN Bed rest for 4 hours. Routine post pacemaker implant site care and activity restrictions. Do not remove pressure dressing until AM. Portable CXR, EKG stat. CXR PA/Lat, device interrogation in AM. Vancomycin 1g iv. x1. PROCEDURE Informed consent was obtained and a timeout was performed prior to the procedure. The patient was continuously monitored by ECG, pulse oxymetry and NIBP. 1g iv. Vancomycin was administered prior to the procedure for antibiotic prophylaxis. Moderate conscious sedation was initiated and maintained with iv. Versed and Fentanyl, for 60 minutes. The left pectoral area was meticulously prepared with ChloroPrep surgical scrub. Sterile draping was applied and Ioban was used to cover the operation site. The image intensifier was draped with a sterile bag and positioned over the patient's chest. A left subclavian venogram was obtained with 10 cc. iv contrast. The left axillary and subclavian veins and the SVC were patent. After infiltration with 1% lidocaine, an incision was made in the left infraclavicular area, parallel to the deltopectoral groove. The incision was carried down to the level of the pectoral fascia. A subcutaneous pocket was then created with electrocautery and blunt dissection. Hemostasis was then achieved with electrocautery. A micropuncture needle was used to access the left axillary vein under fluoroscopic guidance. The microfilament was used to introduce the micropuncture sheath, which the was used to introduce and advance a long hydrophylic guidewire into the inferior vena cava. A 9 Fr sheath was introduced over the guidewire. The dilator was removed. The right ventricular pacemaker lead was introduced through the sheath. The sheath was then peeled away. The curved stylet was used to move the lead into the right ventricular outflow tract. The stylet was then replaced with a straight stylet and the lead was moved into a stable position on the right ventricular septum. Adequate sensing and pacing threshold was confirmed. The active fixation mechanism was then deployed. Stable signal and pacing threshold was noted, with decrease in pacing impedance. No extracardiac stimulation was noted with high output pacing. The lead was then anchored to the subcutaneous tissue with 2-0 nonabsorbable suture, using the anchoring sleeve near the point of entry to the vein. Another 9 Fr sheath was introduced over the retained guidewire. The dilator was removed. The right atrial pacemaker lead was introduced through the sheath. The sheath was then peeled away. A straight stylet was used to move the lead into the right atrium. The stylet was then replaced with a curved J stylet and the lead was moved into a stable position in the right atrial appendage. Adequate sensing and pacing threshold was confirmed. The active fixation mechanism was then deployed. Stable signal and pacing threshold was noted, with decrease in pacing impedance. No extracardiac stimulation was noted with high output pacing. The lead was then anchored to the subcutaneous tissue with 2-0 nonabsorbable suture, using the anchoring sleeve near the point of entry to the vein. The retained guidewire was removed. The pacemaker generator was attached to the leads and sealed in the prescribed manner. The wound was flushed with Vancomycin . The generator was placed into the pocket and tied to the pectoral fascia using 2-0 nonabsorbable suture. Stable lead positions were confirmed with fluoroscopy. The wound was closed using a double layer of 2-0 absorbable Vicryl sutures, followed by a subcuticular running suture with 4-0 Monocryl, then Exofin. The ILR implant site was infiltrated with 1% lidocaine. The ILR was removed using a forceps, via the original implant incision. The incision was then approximated manually and Exofin was applied. A sterile, then a pressure dressing was applied. The device was then interrogated and programmed as detailed below. Device Type SN Location Medtronic Advisa DR DDD pacemaker [id number] Left infraclavicular Lead Position Type SN P/R Threshold Impedance RA RA appendage Medtronic 5076-52 [id number] 2.6 mV 0.8 V @ 0.5 ms 882 Ohm RV RV septum Medtronic 5076-58 [id number] 4.1 mV 1.0 V @ 0.5 ms 995 Ohm Bradycardia settings MVPR 60/110 The implanted system is MRI conditional. Anesthesia: moderate conscious sedation Surgeon / Physician: Hemant Mahoney Curtain Mender: other ([place]) Estimated blood loss: none, minimal Specimens: none sent Condition: stable Disposition: floor - Medications / Follow-up
--- NOTE | 2016-11-14 12:03 | EKG Report ---
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
--- NOTE | 2016-11-14 12:21 | XRay Report ---
Referring Physician: Hemant Mahoney MD Exam: XR chest 1V portable Date: November 14, 2016 at 11:33 AM Reason: Lead placement Comparison: Chest one view portable November 12, 2016 Findings: The cardiac silhouette is again enlarged, and a cardiac pacing device is in place. There is prominent calcified plaque at the thoracic aorta. The interstitial markings are prominent, suggesting pulmonary edema. There are also opacities at the right lung base which could represent atelectasis or pneumonia. No pneumothorax is identified, but there is mild right pleural fluid. The osseous structures appear stable. Impression: 1. Cardiomegaly. 2. There are persistent opacities at the right lung base which could represent atelectasis or pneumonia. There is also mild right pleural fluid. 3. The interstitial markings are prominent, suggesting mild pulmonary edema. PROCEDURE INTERPRETED AT [facility] DEPARTMENT OF RADIOLOGY Final Report Signed by: Dr. Xavier Haddad
[2016-11-14] MEDS: BUDESONIDE/FORMOTEROL 160-4.5 INHALER 6 GM INH SCH ×2 (12:58→20:34)
--- NOTE | 2016-11-14 13:24 | Cardiology Progress Note ---
Assessment and Plan - Time spent with patient Time spent with patient: Less than 30 minutes (1) Symptomatic bradycardia Status: Acute Assessment and plan: Status post dual-chamber permanent pacemaker placement Current Visit: Yes (2) Hypokalemia Status: Acute Assessment and plan: Potassium is 3.5 today Current Visit: Yes (3) Syncope Status: Acute Assessment and plan: secondary to sinus arrest and underlying intrinsic conduction disease status post pacemaker much better Current Visit: Yes (4) CAD (coronary artery disease) Status: Chronic Assessment and plan: Status post PCI of the left circumflex with no apparent complications hemoglobin decreased on but is stable Current Visit: No Qualifiers: Coronary Disease-Associated Artery/Lesion type: [place] artery [place] vs. transplanted heart: [place] heart Associated angina: with unstable angina Qualified Code(s): I25.110 - Atherosclerotic heart disease of [place] coronary artery with unstable angina pectoris (5) Hypertension Status: Chronic Current Visit: No Qualifiers: Hypertension type: essential hypertension Qualified Code(s): I10 - Essential (primary) hypertension (6) Sinus arrest Status: Acute Current Visit: Yes (7) Right bundle branch block Status: Chronic Current Visit: Yes Cardiology - PN: Subj Interval history: Ms. Wesley is status post pacemaker placement went uneventfully I discussed with Dr. Davis. She clearly feels better she has not had any more chest pain. She is arm sling and at this time and a pressure dressing. Cath site looks good she feels good. Will resume her beta-selene now that her pacemaker is in place. Her heart rate is up a little she will need to resume a beta-selene with her coronary artery disease. If her post pacemaker course was uneventful anticipate discharge tomorrow Exam (Progress Note) - Constitutional Vitals: Period Temp Pulse Resp BP Sys/Jerez Pulse Ox Last 24 Hr 97.4 F-98.4 F 50-78 16-20 128-159/58-69 87-100 General appearance: normal weight - Head Head exam: Present: normal inspection - Eye Eye exam: Present: EOMI - Respiratory Respiratory exam: Present: clear to auscultation bilaterally (Suboptimal effort but I do not hear rales) - Cardiovascular Cardiovascular exam: Present: regular rate and rhythm (Tones are crisp) - GI/Abdominal GI/Abdominal exam: Present: normal bowel sounds - Extremities Exam Extremities exam: Present: other (Access site looks good on the right femoral artery) - Back Exam Back exam: Present: normal inspection - Neurological Exam Neurological exam: Present: alert, oriented X3 - Psychiatric Psychiatric exam: Present: normal affect, normal mood - Skin Skin exam: Present: normal color, warm, dry Result/EKG - Labs CBC & BMP: 11/14/16 05:09 11/14/16 05:09 Labs: Laboratory Results - last 24 hr 11/14/16 11/14/16 05:09 05:09 WBC 3.4 L RBC 2.66 L Hgb 8.8 L Hct 27.0 L MCV 101.5 MCH 33 MCHC 32.6 RDW 12.4 Plt Count 147 MPV 12.3 H Neut % (Auto) 62.5 Lymph % (Auto) 18.9 L [place] % (Auto) 11.8 Eos % (Auto) 5.9 Baso % (Auto) 0.6 Neut # (Auto) 2.1 Lymph # (Auto) 0.6 L [place] # (Auto) 0.4 Eos # (Auto) 0.2 Baso # (Auto) 0.0 Immature Gran % 0.3 Nucleated RBC % 0.0 Immature Gran # 0.01 Nucleated RBCs # 0.00 Sodium 136 Potassium 3.5 Chloride 95 L Carbon Dioxide 34 H Anion Gap 10.5 BUN 10 Creatinine 0.70 GFR Calculation 78 BUN/Creatinine Ratio 14.00 Glucose 100 Calculated Osmolality 270.0 L Calcium 8.4 L Magnesium 2.3 Quality Measures - VTE Contraindication to Pharmacological VTE Prophylaxis: Already on Theraputic Agent , No Prophylaxis Needed Specialty Discharge - Follow Up or Referrals
[2016-11-14] MEDS ORDERED: LABETALOL 100 MG TABLET PO SCH (13:30)
[2016-11-14] MEDS: PRAVASTATIN 20 MG TABLET PO SCH (20:34)
[2016-11-14] MEDS ORDERED: VANCOMYCIN INJ 1,000 MG in SODIUM CHLORIDE 0.9% 250 ML IV ONE (23:15)
[2016-11-15 05:52] LABS: Basophils % 0.2 % (0.0-0.8); Eosinophils # 0.2 10*3/uL (0.0-0.87); Eosinophils % 4.4 % (0.00-10.9); Hemoglobin 9.1 GM/DL (12.0-16.0); Immature Granulocytes % 0.2 %; Immature Granulocytes Absolute 0.01 #; Lymphocytes # 0.5 10*3/uL (1.4-4.0); Lymphocytes % 11.6 % (21.3-54.2); Mean Corpuscular HGB Conc 33.7 GM/DL (32-36); Mean Corpuscular Hemoglobin 34 PG (27-34); Mean Corpuscular Volume 99.6 FL (87-102); Mean Platelet Volume 12.1 FL (9.6-12.0); Monocytes # 0.4 10*3/uL (0.11-0.8); Monocytes % 10.4 % (1.7-12.7); Neutrophils % 73.2 % (38.7-73.9); Platelet Count 151 T/CUMM (130-400); Red Blood Count 2.71 MC/CUMM (3.8-5.5); Red Cell Distribution Width 12.4 % (9.3-17.3); White Blood Count 4.1 T/CUMM (4-12)
[2016-11-15 06:22] LABS: Calcium 8.4 MG/DL (8.5-10.1); Magnesium 2.1 MG/DL (1.8-2.4); Osmolality,Calculated 268.1 MOS/KG (273-304); Potassium 3.7 MMOL/L (3.5-5.1)
[2016-11-15] MEDS: LEVOTHYROXINE 75 MCG TABLET PO SCH (06:33)
--- NOTE | 2016-11-15 08:05 | XRay Report ---
2 view chest. Indication: Lead placement. Comparison: November 14, 2016. The heart is borderline enlarged. There is calcific plaque present within the aortic knob. Cardiac hardware appears to be in satisfactory position. The pulmonary vasculature is normal. There is mild basilar atelectasis, slightly worse on the left and slightly improved on the right. Tiny bilateral pleural effusions are present. Degenerative changes are noted within the spinal column. Impression: Improvement of venous congestion. Tiny pleural effusions persist. Scattered atelectasis at the bases. PROCEDURE INTERPRETED AT [facility] [place] DEPARTMENT OF RADIOLOGY Final Report Signed by: Dr. Josy Barraza
[2016-11-15 08:09] VITALS: BP 141/69
[2016-11-15] MEDS: IPRATROPIUM 500 MCG/2.5 ML NEB RESP TX SCH ×2 (08:10→10:30)
--- NOTE | 2016-11-15 08:26 | Electrophysiology Progress Not ---
Assessment and Plan (1) Syncope Status: Acute Assessment and plan: 81-year-old female, syncope, documented symptomatic bradycardia on ILR, bifascicular block, CAD, PAD, obstructive sleep apnea, hypothyroidism. LVEF was 76% on recent stress test. 11/14: DDD PM implant from L axillary access, ILR explant -Stop labetalol qd. Start metoprolol 25 mg twice daily. -Post pacemaker implant activity limitations and implant site care were discussed. -cont ASA/Plavix, recent CX PCI -FU PM interrogation -FU with EP, dr. Mahoney in 1 week Current Visit: Yes (2) Hypokalemia Status: Acute Current Visit: Yes (3) Symptomatic bradycardia Status: Acute Current Visit: Yes (4) Sinus arrest Status: Acute Current Visit: Yes (5) Right bundle branch block Status: Chronic Current Visit: Yes Electrophysiology Subjective Interval history: Removed the pressure dressing. There is ecchymosis around the pacemaker implant and ILR explant sites, not significantly changed since yesterday. X-ray shows a normal lead positions. Device interrogation pending. Mostly atrial paced rhythm on telemetry. Exam - Constitutional Vitals: Period Temp Pulse Resp BP Sys/Jerez Pulse Ox Last 24 Hr 97.2 F-99.2 F 59-78 16-18 108-171/45-69 92-100 General appearance: normal weight, no acute distress - Head Head exam: Present: normal inspection, normocephalic - Eye Eye exam: Absent: conjunctival injection Pupils: Absent: dilated - ENT ENT exam: Present: normal external ear exam - Neck Neck exam: Present: normal inspection - Cardiovascular Cardiovascular exam: Present: regular rate and rhythm - GI/Abdominal GI/Abdominal exam: Present: normal bowel sounds - Extremities Exam Extremities exam: Present: normal inspection, normal capillary refill. Absent: edema - Neurological Exam Neurological exam: Present: alert, oriented X3 - Psychiatric Psychiatric exam: Present: normal affect, normal mood - Skin Skin exam: Present: normal color, warm, other (Ecchymosis around the pacemaker implant, ILR explant site.). Absent: cyanosis Results - Labs CBC & BMP: 11/15/16 05:22 11/15/16 05:22 Lab Results: I have reviewed the past 24 hour labs Quality Measures - VTE Contraindication to Pharmacological VTE Prophylaxis: Already on Theraputic Agent , No Prophylaxis Needed Specialty Discharge - Follow Up or Referrals
[2016-11-15] MEDS: CLOPIDOGREL 75 MG TABLET PO SCH (08:49)
[2016-11-15] MEDS: ASPIRIN EC 81 MG TABLET PO SCH (08:49)
[2016-11-15] MEDS: ISOSORBIDE MONONITRATE 60 MG TABLET PO SCH (08:49)
[2016-11-15] MEDS: POTASSIUM CHLORIDE 20 MEQ TABLET PO SCH (08:49)
[2016-11-15] MEDS: PANTOPRAZOLE 40 MG TABLET PO SCH (08:49)
[2016-11-15] MEDS: FERROUS SULFATE 325 MG TABLET PO SCH (08:49)
[2016-11-15] MEDS: MAGNESIUM OXIDE 400 MG TABLET PO SCH (08:49)
[2016-11-15] MEDS: BUDESONIDE/FORMOTEROL 160-4.5 INHALER 6 GM INH SCH (08:52)
[2016-11-15] MEDS ORDERED: METOPROLOL TARTRATE 25 MG TABLET PO SCH (09:00)
--- NOTE | 2016-11-15 10:27 | Discharge Summary ---
Rachel Vázquez April RN, am scribing for, and in the presence of, Katelyn Evans DO 10 :24. Hospital Course - Hospital Course Hospital Course: Ms. Wesley is an 81-year-old female who had a leak placed on the morning of November 12. After discharge she went to eat a restaurant and passed out. She presented to the emergency room with bradycardia. Her device was interrogated by the [employer] patient accounting representative and heart rates were noted to be in the 20s and 30s. According to her daughter she had been having chest pain and then taking nitroglycerin. It was decided to the left heart catheterization because of this bradycardia episode. She had PCI of the right coronary artery in April 2016. Heart catheterization done on the day of admission with the following findings and plan: LM: Mild luminal irregularity LAD: This vessel has no significant fixed atheroma. LCx: This is a large though nondominant vessel. There is ostial stenosis at the takeoff the first obtuse marginal. Just after this there is a high-grade 90 % stenosis with CHEMO-3 flow in the mid left circumflex pre-PCI and less than 10 % residual or 0% angiographic residual stenosis post PCI. There is CHEMO III flow in the vessel. There is mild stenosis at the takeoff of the small second obtuse marginal and the bifurcation type pattern there is also stenosis in the left circumflex portion of this vessel. This was not disrupted or intervened upon. RCA: The previously placed stent in the proximal RCA is widely patent. There is diffuse disease in the mid segment of the RCA that appears unchanged from the previous cath after PCI. It is moderate stenosis up to 50%. RFA/NORBERTO: The previously deployed stents in the right common femoral and iliac artery are widely patent. Access is below the stent but above common femoral that is highly diseased approximately 80+% stenosis in the superficial femoral artery with sluggish flow. Her doctor in [place] planned perform intervention on this later this week I think he will likely be postponed. The access was obtained above this area of stenosis. Assessment: 1. Symptomatic bradycardia 2. High-grade mid left circumflex stenosis status post successful PCI with HERMILA as described above 3. High-grade superficial femoral artery stenosis just below the bifurcation common femoral PLAN: 1. Discontinue beta-selene 2. Observation on telemetry with aggressive medical therapy 3. Monitor for indications for pacing Dr. Mahoney was consulted for pacemaker placement. She had a dual-chamber pacemaker placed November 14 and Linq device was explanted. Currently Ms. Wesley is sitting up in chair in no acute distress. She denies any chest pain, palpitations, or dizziness. She denies any further episodes of syncope or near syncope. Oxygen is in use, she states she is breathing fairly well. There is bruising around the pacemaker implant and Linq explant sites, site is tender. No evidence of dehiscence or infection. Right groin without evidence of bleeding or hematoma, denies tenderness. Telemetry monitoring currently shows atrial pacing with heart rates in the 60s. Labetalol was restarted after pacemaker placement, this is been changed to Lopressor 25 mg p.o. twice daily. Blood pressures ranging 130-140/60. Labs are unremarkable. Chest x-ray shows normal leg position, device has been interrogated. She has reached maximum hospital benefit and will be discharged home. She will follow-up with Dr. Mahoney in [address] Evans in 3 months. - Time spent with patient Time with patient DS: Greater than 30 minutes Diagnosis - Discharge Diagnosis (1) Status post placement of cardiac pacemaker Status: Acute (2) Syncope Status: Resolved (3) CAD (coronary artery disease) Status: Chronic (4) Hypertension Status: Chronic (5) Unstable angina Status: Acute (6) Sinus arrest Status: Acute Specialty Discharge - Follow Up or Referrals Follow up with: Hemant Mahoney MD [Physician] - 1 Week (wound check) Katelyn Evans DO [Physician] - (3 months with ekg) Discharge Plan - Discharge Data Disposition: Disch To Home/Self Care Condition at Discharge: Stable Discharge Diet: heart healthy, other Activity: other (Post cath expectations) Hygiene: other (Post cath expectations) Weight Bearing at Discharge: other (Post cath expectations) Driving: other (Post cath expectations) Contact your physician if you experience:: fever over 101, Difficulty voiding, Redness or swelling, Nausea/Vomiting, Shortness of breath, Bleeding, pain uncontrolled by pain medications - Discharge Medications New Metoprolol Tartrate Tab [Lopressor Tab] 25 mg PO BID #60 tablet Continue Clopidogrel [Plavix] 75 mg PO QAM Pantoprazole Tab [Protonix Tab] 40 mg PO QAM Aclidinium Clubb [Tudorza Pressair] 400 mcg IH BID Ferrous Sulfate [Ferrous Sulfate Cap] 325 mg PO BID Nitroglycerin [Nitroglycerin SL Tab] 0.4 mg SL Q5M PRN PRN Reason: Chest Pain Budesonide/Formoterol Fumarate [Symbicort 160-4.5 Mcg Inhaler] 2 puffs INH BID Pravastatin [Pravachol] 40 mg PO BEDTIME Levothyroxine Tab [Synthroid Tab] 75 mcg PO QAM Aspirin [Ecotrin] 81 mg PO QAM Discontinued Furosemide [Furosemide] 40 mg PO DAILY Isosorbide Mononitrate [Isosorbide Mononitrate ER] 60 mg PO QAM Chlorthalidone [Chlorthalidone] 25 mg PO QAM Labetalol Tab [Trandate Tab] 100 mg PO QAM - Follow Up or Referral Follow Up: Hemant Mahoney MD [Physician] - 1 Week (wound check) Katelyn Evans DO [Physician] - (3 months with ekg) - Forms/Instructions Instructions: Coronary Artery Disease (GEN), Left Heart Catheterization (DC), Pacemaker (DC), Heart Healthy Diet (GEN), Coronary Intravascular Stent Placement (DC) Exam - Constitutional Vitals: Period Temp Pulse Resp BP Sys/Jerez Pulse Ox Last 24 Hr 97.2 F-99.2 F 59-79 16-18 108-171/45-69 92-100 General appearance: normal weight, no acute distress - Head Head exam: Absent: abrasion, hematoma - Eye Eye exam: Absent: periorbital swelling, laceration to eyelids - Neck Neck exam: Absent: tenderness - Respiratory Respiratory exam: Present: clear to auscultation bilaterally, other (Oxygen via nasal cannula). Absent: accessory muscle use, chest wall tenderness - Cardiovascular Cardiovascular exam: Present: regular rate and rhythm (Paced) - GI/Abdominal GI/Abdominal exam: Present: normal bowel sounds, soft. Absent: distended, tenderness - Extremities Exam Extremities exam: Present: other (Right groin without evidence of bleeding or hematoma). Absent: edema - Neurological Exam Neurological exam: Present: alert, oriented X3 - Psychiatric Psychiatric exam: Present: normal affect, normal mood - Skin Skin exam: Present: warm, dry, other (Ecchymosis to pacemaker placement and length explant sites) Discharge Results Labs on day of discharge: Labs from last 24 hours 11/15/16 11/15/16 05:22 05:22 WBC 4.1 RBC 2.71 L Hgb 9.1 L Hct 27.0 L MCV 99.6 MCH 34 MCHC 33.7 RDW 12.4 Plt Count 151 MPV 12.1 H Neut % (Auto) 73.2 Lymph % (Auto) 11.6 L [place] % (Auto) 10.4 Eos % (Auto) 4.4 Baso % (Auto) 0.2 Neut # (Auto) 3.0 Lymph # (Auto) 0.5 L [place] # (Auto) 0.4 Eos # (Auto) 0.2 Baso # (Auto) 0.0 Immature Gran % 0.2 Nucleated RBC % 0.0 Immature Gran # 0.01 Nucleated RBCs # 0.00 Sodium 135 L Potassium 3.7 Chloride 95 L Carbon Dioxide 34 H Anion Gap 9.7 BUN 11 Creatinine 0.70 GFR Calculation 78 BUN/Creatinine Ratio 15.00 Glucose 95 Calculated Osmolality 268.1 L Calcium 8.4 L Magnesium 2.1 - Imaging and Cardiology Cardiology Procedure: report reviewed by me Procedure: Chest x-ray: report reviewed by me, image reviewed by me DS: Provider Expected date of discharge: 11/15/16 Cristina Vázquez Shea, DO, personally performed the services described in this documentation, ascribed by Alana Ramos RN in my presence, and it is both accurate and complete .
--- NOTE | 2016-11-15 11:31 | Pathology Report from [facility] ---
ACCESSION # : [id number] PATIENT NAME : Nat Boland ORDERING DR : Hemant Mahoney MD CLINICAL HX: Ling implant POST-OP DX: Same SPECIMEN INFO: Ling recorder GROSS DESCRIPTION: The specimen is received fresh labeled with the patient's name Nat Boland consists of a Ling Recorder serial #[id number]. Submitted for gross exam only. DIAGNOSIS FOR NAT BOLAND: Ling Recorder, GROSS ONLY. SERVICE DATE: 11/14/2016 REPORT DATE: 11/15/2016 PATHOLOGIST: Caesar Clark M.D. [facility]ITALRanch[facility]
== END 2016-11-15 12:03 | disposition home or self-care (01) | DRG 243 ==
LOC: EDUNIT# → N.EDINP 09:27 → N.ED 09:27 → N.TELEN 12:05
PROVIDERS: ADMIT Internal Medicine Cardiovascular Disease; ATTEND Internal Medicine Cardiovascular Disease

== ENCOUNTER 2017-02-27 14:57 | Inpatient (IN) ==
[2017-02-27] MEDS ORDERED: ONDANSETRON 4 MG/2 ML VIAL IV STA (15:23)
[2017-02-27] MEDS ORDERED: PANTOPRAZOLE 40 MG VIAL IV STA (15:23)
[2017-02-27] MEDS ORDERED: SODIUM CHLORIDE 0.9% 1,000 ML IV STA (15:23)
--- NOTE | 2017-02-27 15:26 | EKG Report ---
Stationary ECG Study [facility] ER Test Date: 02/27/2017 3:14:59 PM Pat Name: CRISTIAN BOLAND Department: Room: Gender: F Patient Financial Representative: : 1935 Requested by: Cuong Vickers Order Number: [id number] Reading MD: DAVID MONTENEGRO Intervals Horner Rate: 65 P: 24 IN: 144 QRS: -54 QRSD: 143 T: 8 QT: 446 QTc: 458 Interpretive Statements ELECTRONIC ATRIAL PACEMAKER at 65 bpm LEFT AXIS DEVIATION RIGHT BUNDLE BRANCH BLOCK Electronically Signed On 02-27-17 15:58:19 CDT by DAVID MONTENEGRO [email or web address]
--- NOTE | 2017-02-27 15:27 | Emergency Department Note ---
Arrival - Arrival Chief Complaint: Syncope Stated Complaint: Syncope EMS STEMI alert ED Nursing Triage Note: Pt had a Syncope episode around Lunch today and also had a episode of black diarrhea today. EMS reported blood sugar of 116. Mode of Arrival: Stretcher Limitations: No Limitations Source: Patient, Family, RN Notes Reviewed Time Seen by Provider: 02/27/17 15:16 - History of Present Illness HPI Narrative: Patient is an 81-year-old white female who presents to the emergency department today following 2 syncopal episodes. The patient has no recollection of these episodes. She apparently had an episode at home and then called her daughter who was at work who went to check on the patient and found her on the toilet. Patient had another syncopal episode while she was on the toilet. Patient's been passing dark black bowel movements. She is 3 months status post left mid circumflex stent by Dr. Evans. Patient is on Plavix. She is also on baby aspirin. She has had 2 episodes of vomiting today but denies any hematemesis. The patient does have a prior history of a GI bleed years ago. She denies any abdominal pain. Onset (ago): hour(s) (4-5) Consistency: intermittent Severity: moderate, severe Quality: other Allergies/Adverse Reactions: Allergies Allergy/AdvReac Type Severity Reaction Status Date / Time adhesive tape Allergy RASH Verified 11/12/16 06:05 Penicillins Allergy RASH Verified 11/12/16 06:05 Sulfa (Sulfonamide Allergy RASH Verified 11/12/16 06:05 Antibiotics) sulfamethoxazole Allergy RASH Verified 11/12/16 06:05 [From Bactrim] trimethoprim [From Bactrim] Allergy RASH Verified 11/12/16 06:05 Home Medications: Home Medications Medication Instructions Recorded Confirmed Type Aspirin [Ecotrin] 81 mg PO QAM 02/24/15 02/27/17 History Levothyroxine Tab [Synthroid Tab] 75 mcg PO QAM 02/24/15 02/27/17 History Pravastatin [Pravachol] 40 mg PO BEDTIME 02/24/15 02/27/17 History Clopidogrel [Plavix] 75 mg PO QAM 04/17/16 02/27/17 History Pantoprazole Tab [Protonix Tab] 40 mg PO QAM 04/17/16 02/27/17 History Aclidinium [place] [Tudorza 400 mcg INH BID 07/31/16 02/27/17 History Pressair] Budesonide/Formoterol Fumarate 2 puffs INH BID 11/04/16 02/27/17 History [Symbicort 160-4.5 Mcg Inhaler] Ferrous Sulfate [Ferrous Sulfate 325 mg PO BID 11/04/16 02/27/17 History Cap] Nitroglycerin [Nitroglycerin SL 0.4 mg SL Q5M PRN 11/04/16 02/27/17 History Tab] Metoprolol Tartrate Tab [Lopressor 25 mg PO BID #60 tablet 11/15/16 02/27/17 Rx Tab] Isosorbide Mononitrate [Isosorbide 60 mg PO QAM 02/27/17 02/27/17 History Mononitrate ER] Labetalol HCl [Labetalol HCl] 100 mg PO QAM 02/27/17 02/27/17 History Losartan Potassium [Losartan 25 mg PO QAM 02/27/17 02/27/17 History Potassium] Vit C/Vit E AC/Lut/Copper/Zinc 1 each PO QAM 02/27/17 02/27/17 History [Preservision Lutein Softgel] Review of System - Review of System 12 point system: reviewed and no additional remarkable complaints except as stated - Review of System Constitutional: Absent: chills, fever Respiratory: Absent: cough Cardiovascular: Absent: chest pain, palpitations Gastrointestinal: Present: nausea, vomiting, melena. Absent: abdominal pain, constipation, hematemesis, hematochezia Skin: Absent: rash Neurological: Absent: headache Medical,Surgical,& Family Hx - Medical History Cardio: History of: CAD, Hypertension, OR, PVD Neurology: No history of: Brain Aneurysm, Cerebral Hemorrhage, Cerebrovascular Accident , Cerebral Palsy, Dementia, Migraine, Multiple Sclerosis, Parkinson's Disease, Peripheral Neuropathy, Seizures, TIA, Vertigo, Neurologocal Cancer HEENT: History of: Eye Problem (AMD) Endocrine: History of: Thyroid Disorder (hypothyroid) No history of: Diabetes Mellitus (IDDM), Diabetes Mellitus (NIDDM), Dyslipidemia Respiratory: History of: COPD, Obstructive Sleep Apnea, Pneumonia Genitourinary: History of: Kidney Stones, Recurring Urinary Tract Infections Gastrointestinal: History of: GERD, Gastrointestinal Bleed (2015), Polyps Musculoskeletal: History of: Musculoskeletal Problems (arthritis) Hematology: History of: Bleeding Problems (GI bleed 2014) Reproductive: History of: Reproductive Cancer (cervical) Other: History of: Cancer (uterine cancer) - Surgical History Cardiac Surgeries: Sugical HX of: Femoral-Popliteal Bypass Graft, Cardiac Catheterization (april 2016, stents), Cardiac Surgery (heart stents in place.By pass in left leg.) Thoracic Surgeries: Patient denies;: Organ Transplant Neurologic Surgeries: Patient denies: Brain Aneurysm, Cerebral Hemorrhage, Neurologic Surgery HEENT Surgeries: Surgical HX of: Eye Surgery (cataract surgery), Thyroid Surgery (hypothyroidism), Tonsilectomy & Adenoidectomy Abdominal Surgeries: Surgical HX of: Appendectomy, Colonoscopy Reproductive Surgeries: Surgical HX of;: Hysterectomy (1961) Orthopedic Surgeries: Surgical HX of;: Implanted Devices (tawanna to right leg), Orthopedic Surgery (right rotator cuff repair, right knee surgery, right hip fracture) - Family History Family History: Reports;: Family Diabetes (both sons), Family Heart Disease ( father had heart attack) Denies;: Family Cancer - Social History Smoking Status: Former smoker Exam Vital Signs: Vital Signs Temperature 97.2 F L 02/27/17 15:06 Pulse Rate 88 02/27/17 15:06 Respiratory Rate 20 02/27/17 15:06 Blood Pressure 88/45 02/27/17 15:06 O2 Sat by Pulse Oximetry 98 02/27/17 14:58 GENERAL: This is a well-nourished well-developed white female in no apparent distress. VITAL SIGNS: Reviewed HEENT: Head is atraumatic and normocephalic. Pupils are equal round react to light. Extraocular movements are intact. Conjunctiva are pink and well perfused. Oropharynx is benign with moist mucous membranes. NECK: Neck is soft and supple without tenderness. There are no masses. There is no lymphadenopathy. LUNGS: Lungs are clear to auscultation. Chest rises symmetrically. There is no chest wall tenderness. CV: Heart is regular rate and rhythm without murmurs rubs or gallops. ABDOMEN: Abdomen is soft, nontender to palpation. There are no abdominal abnormal masses palpated. There is no organomegaly. Bowel sounds are present and active. Rectal: Good tone, no masses, melenic stool present which is heme positive. SKIN: Skin is warm and dry. No rash. EXTREMITIES: Patient has full range of motion without tenderness. There is no pedal edema. NEUROLOGIC: Awake alert and oriented 4. Cranial nerves II through XII are grossly intact. Motor is 5 over 5 in all extremities bilaterally. Course Course Narrative: Patient was given 1 L of normal saline IV along with Protonix in the emergency department. - Consultations Consultation #1: Discussed with hospitalist. Patient will be admitted to their service. Time: 16:14 Results - Labs CBC & BMP: 02/27/17 15:15 Lab Results: I have reviewed the patients labs - EKG EKG results: interpreted by ERMD - Impressions EKG: Electronic atrial pacemaker with right bundle branch block, left axis deviation, nonspecific ST-T wave changes. Rate 65. - Diagnostic Findings Procedure: Abdominal x-ray: image reviewed by me (Nonspecific gas pattern, no free air, vascular stents are present in the abdomen.), Chest x-ray: image reviewed by me (No infiltrates, no pleural effusions.) Disposition Clinical Impression: Syncope, Acute upper GI bleed, Coronary artery disease Case discussed with: patient Disposition: Still a Patient Condition: Guarded Time of Disposition: 15:28
[2017-02-27] MEDS ORDERED: ONDANSETRON 4 MG/2 ML VIAL ONE (15:38)
[2017-02-27] MEDS ORDERED: PANTOPRAZOLE 40 MG VIAL IV ONE (15:38)
[2017-02-27 15:45] LABS: Basophils % 0.3 % (0.0-0.8); Eosinophils # 0.1 10*3/uL (0.0-0.87); Eosinophils % 0.9 % (0.00-10.9); Hemoglobin 11.9 GM/DL (12.0-16.0); Immature Granulocytes % 0.6 %; Immature Granulocytes Absolute 0.06 #; Lymphocytes # 0.6 10*3/uL (1.4-4.0); Lymphocytes % 6.3 % (21.3-54.2); Mean Corpuscular Hemoglobin 32 PG (27-34); Mean Corpuscular Volume 95.1 FL (87-102); Mean Platelet Volume 12.3 FL (9.6-12.0); Monocytes # 0.6 10*3/uL (0.11-0.8); Monocytes % 6.8 % (1.7-12.7); Neutrophils # 7.9 10*3/uL (1.4-7.4); Neutrophils % 85.1 % (38.7-73.9); Platelet Count 158 T/CUMM (130-400); Red Blood Count 3.68 MC/CUMM (3.8-5.5); Red Cell Distribution Width 13.3 % (9.3-17.3); White Blood Count 9.3 T/CUMM (4-12)
[2017-02-27 16:01] LABS: PT Patient Result 10.3 SECS
--- NOTE | 2017-02-27 16:11 | XRay Report ---
XR chest 1V portable Indication: SOB Comparison: Chest x-ray dated November 15, 2016 Technique: Single frontal view of the chest. Findings: Mild cardiomegaly. Pacemaker apparatus again demonstrated. Chronic/granulomatous change of the lungs. Mild opacification of the right lung base suspicious for pneumonia. Visualized osseous and surrounding soft tissue structures appear grossly unchanged. Diffuse osteopenia. IMPRESSION: As above. PROCEDURE INTERPRETED AT [facility] [place] DEPARTMENT OF RADIOLOGY Final Report Signed by: Dr Cory Braun
--- NOTE | 2017-02-27 16:13 | XRay Report ---
Exam: XR abdomen complete w decub Date: 02/27/2017 3:24 PM Comparison: None Indication: Generalized abdominal pain Technique:[Supine and left lateral pubis abdomen] Findings: Nonobstructed bowel gas pattern with no free air. Extensive metallic stents are noted with vascular calcifications. Vascular calcifications make it difficult to exclude additional renal calculi. Degenerative changes are noted. Impression: Nonobstructed bowel gas pattern with no free air. Extensive arterial calcifications and metallic stents. PROCEDURE INTERPRETED AT [facility] DEPARTMENT OF RADIOLOGY Final Report Signed by: Dr. Jeana Garsia
[2017-02-27 16:33] LABS: Alanine Aminotransferase 15 U/L (13-56); Albumin 3.6 G/DL (3.4-5.0); Alkaline Phosphatase 109 U/L (45-117); Aspartate Amino Transferase 19 U/L (0-37); Blood Urea Nitrogen 30 MG/DL (7-18); Calcium 9.3 MG/DL (8.5-10.1); Glucose 114 MG/DL (74-106); Osmolality,Calculated 270.5 MOS/KG (273-304); Potassium 4.2 MMOL/L (3.5-5.1); Sodium 132 MMOL/L (136-145); Total Protein 6.6 G/DL (6.4-8.3); Troponin I Only < 0.015 NG/ML (0.00-0.045)
--- NOTE | 2017-02-27 17:49 | Hospitalist History & Physical ---
<Lashay Castellanos - Last Filed: 02/27/17 17:47> Assessment and Plan (1) Acute upper GI bleed Status: Acute Current Visit: Yes (2) Coronary artery disease Status: Chronic Current Visit: Yes (3) Syncope Status: Acute Current Visit: Yes (4) CAD (coronary artery disease) Status: Chronic Current Visit: No History of Present Illness Chief complaint: Gastrointestinal bleeding History of present illness: Ms. Wesley is a 81 year old female brought to the emergency department by ambulance accompanied by her daughter with complaints of blood in stool. The patient had a syncopal episode at home and called her daughter. Patient seen and examined by me in the emergency department in room 3. Case discussed with nursing staff. Labs reviewed. I have personally seen and examined this patient today. I agree with the below note as prepared by the advanced practice provider. I agree with the assessment and plan. The patient will be admitted to the intensive care unit. Aspirin Plavix will be held. Consultation with cardiology regarding her anticoagulation due to recent stent placement. Consult GI for upper endoscopy and further workup of gastrointestinal bleeding. Repeat H&H every 8 and transfuse as needed. Patient was hypotensive on arrival to the emergency department and has improved with IV fluids. Home Medications Medication Instructions Recorded Confirmed Type Aspirin [Ecotrin] 81 mg PO QAM 02/24/15 02/27/17 History Levothyroxine Tab [Synthroid Tab] 75 mcg PO QAM 02/24/15 02/27/17 History Pravastatin [Pravachol] 40 mg PO BEDTIME 02/24/15 02/27/17 History Clopidogrel [Plavix] 75 mg PO QAM 04/17/16 02/27/17 History Pantoprazole Tab [Protonix Tab] 40 mg PO QAM 04/17/16 02/27/17 History Aclidinium [place] [Tudorza 400 mcg INH BID 07/31/16 02/27/17 History Pressair] Budesonide/Formoterol Fumarate 2 puffs INH BID 11/04/16 02/27/17 History [Symbicort 160-4.5 Mcg Inhaler] Ferrous Sulfate [Ferrous Sulfate 325 mg PO BID 11/04/16 02/27/17 History Cap] Nitroglycerin [Nitroglycerin SL 0.4 mg SL Q5M PRN 11/04/16 02/27/17 History Tab] Metoprolol Tartrate Tab [Lopressor 25 mg PO BID #60 tablet 11/15/16 02/27/17 Rx Tab] Isosorbide Mononitrate [Isosorbide 60 mg PO QAM 02/27/17 02/27/17 History Mononitrate ER] Labetalol HCl [Labetalol HCl] 100 mg PO QAM 02/27/17 02/27/17 History Losartan Potassium [Losartan 25 mg PO QAM 02/27/17 02/27/17 History Potassium] Vit C/Vit E AC/Lut/Copper/Zinc 1 each PO QAM 02/27/17 02/27/17 History [Preservision Lutein Softgel] Allergies Allergy/AdvReac Type Severity Reaction Status Date / Time adhesive tape Allergy RASH Verified 11/12/16 06:05 Penicillins Allergy RASH Verified 11/12/16 06:05 Sulfa (Sulfonamide Allergy RASH Verified 11/12/16 06:05 Antibiotics) sulfamethoxazole Allergy RASH Verified 11/12/16 06:05 [From Bactrim] trimethoprim [From Bactrim] Allergy RASH Verified 11/12/16 06:05 Medical,Surgical,& Family Hx - Medical History Cardio: History of: CAD, Hypertension, [place], PVD Neurology: No history of: Brain Aneurysm, Cerebral Hemorrhage, Cerebrovascular Accident , Cerebral Palsy, Dementia, Migraine, Multiple Sclerosis, Parkinson's Disease, Peripheral Neuropathy, Seizures, TIA, Vertigo, Neurologocal Cancer HEENT: History of: Eye Problem (AMD) Endocrine: History of: Thyroid Disorder (hypothyroid) No history of: Diabetes Mellitus (IDDM), Diabetes Mellitus (NIDDM), Dyslipidemia Respiratory: History of: COPD, Obstructive Sleep Apnea, Pneumonia Genitourinary: History of: Kidney Stones, Recurring Urinary Tract Infections Gastrointestinal: History of: GERD, Gastrointestinal Bleed (2014), Polyps Musculoskeletal: History of: Musculoskeletal Problems (arthritis) Hematology: History of: Bleeding Problems (GI bleed 2014) Reproductive: History of: Reproductive Cancer (cervical) Other: History of: Cancer (uterine cancer) - Surgical History Cardiac Surgeries: Sugical HX of: Femoral-Popliteal Bypass Graft, Cardiac Catheterization (april 2016, stents), Cardiac Surgery (heart stents in place.By pass in left leg.) Thoracic Surgeries: Patient denies;: Organ Transplant Neurologic Surgeries: Patient denies: Brain Aneurysm, Cerebral Hemorrhage, Neurologic Surgery HEENT Surgeries: Surgical HX of: Eye Surgery (cataract surgery), Thyroid Surgery (hypothyroidism), Tonsilectomy & Adenoidectomy Abdominal Surgeries: Surgical HX of: Appendectomy, Colonoscopy Reproductive Surgeries: Surgical HX of;: Hysterectomy (1961) Orthopedic Surgeries: Surgical HX of;: Implanted Devices (tawanna to right leg), Orthopedic Surgery (right rotator cuff repair, right knee surgery, right hip fracture) - Family History Family History: Reports;: Family Diabetes (both sons), Family Heart Disease ( father had heart attack) Denies;: Family Cancer - Social History Smoking Status: Former smoker 12 point system: reviewed and no additional remarkable complaints except as stated Exam - Constitutional Vitals: Period Temp Pulse Resp BP Sys/Jerez Pulse Ox Last 24 Hr 97.2 F-97.2 F 88-88 20-20 88-88/45-45 98 Results - Labs CBC & BMP: 02/27/17 15:15 02/27/17 15:15 Lab Results: I have reviewed the past 24 hour labs Quality Measures - VTE Contraindication to Pharmacological VTE Prophylaxis: High Risk of Bleeding <Nate Hernández - Last Filed: 02/27/17 18:12> History of Present Illness History of present illness: Ms. Wesley is a 81 year old white female with a past medical history significant for hypertension, COPD, CAD with PCI, peripheral arterial disease who presents to the ED today after suffering 2 syncopal episodes today around noon. The patient reports that she was eating watermelon in the kitchen when she began to feel faint and "passed out". She does not recall how long she was out before regaining consciousness and making over to the bathroom. She states that she was sitting on the toilet and had a black, tarry bowel movement before passing out again. Her daughter, who is at bedside, found her and called 911. On arrival in the ED, the patient was found to be hypotensive with a BP of 97/ 45 and an H&H of 11 and 35. Patient confirms blurry "foggy" vision, syncope 2 , abdominal pain is primarily in the epigastric region, and nausea. She denies headache, chest pain, shortness of breath, bright red blood per rectum, hematemesis, edema. Lab work reveals white count 9.3 hemoglobin 11.9, hematocrit 35.0, sodium 132, potassium 4.2, BUN 30, creatinine 0.90, serum glucose 114. Case been discussed with Dr. Castellanos and the patient will be admitted to the hospital medicine service for further evaluation and treatment. Patient is a full code. Home medications have been reviewed and reconciled. Exam - Constitutional Vitals: Period Temp Pulse Resp BP Sys/Jerez Pulse Ox Last 24 Hr 97.2 F-97.2 F 88-88 20-20 88-88/45-45 98 - Head Head exam: Present: normal inspection, normocephalic, atraumatic - Eye Eye exam: Present: EOMI Pupils: Present: TA - ENT ENT exam: Present: normal exam - Neck Neck exam: Present: normal inspection. Absent: lymphadenopathy, tenderness, thyromegaly - Respiratory Respiratory exam: Present: clear to auscultation bilaterally - GI/Abdominal GI/Abdominal exam: Present: normal bowel sounds, tenderness (epigastric) - Extremities Exam Extremities exam: Present: other (purpura and open wounds to the RLE) - Back Exam Back exam: Present: CVA tenderness (L), CVA tenderness (R) - Neurological Exam Neurological exam: Present: alert, oriented X3, CN II-XII intact, reflexes normal - Psychiatric Psychiatric exam: Present: normal affect, normal mood - Skin Skin exam: Present: warm, dry, pallor, petechiae Results - Labs CBC & BMP: 02/27/17 15:15 02/27/17 15:15
--- NOTE | 2017-02-27 18:25 | Gastrointestinal Consult Note ---
Assessment and Plan (1) Acute upper GI bleeding Status: Acute Assessment and plan: This patient is taking aspirin and Plavix and as a result may have bleeding from variety of different potential causes including: Esophagitis, gastritis, duodenitis, peptic ulcer disease, gastric cancer, esophageal cancer, AVMs and Dieulafoy's lesion. We should be able to discern the cause based on endoscopy tomorrow provided the field is clean of residual blood. She is given Protonix twice daily and this is likely adequate to cover her by IV. She is a long-term epigastric tenderness and this may represent gastritis versus ulcer versus Helicobacter pylori infection. Upper endoscopy will take place tomorrow hopefully sometime between 7 and 9 AM. Further recommendations post evaluation. Patient was advised that there are risks involved with upper endoscopy which include but are not limited to: Bleeding, infection, perforation , cardiac and pulmonary compromise. The history was taken in the presence of Laura the patient's daughter who is in agreement with the plan. Current Visit: Yes (2) Acute posthemorrhagic anemia Status: Acute Assessment and plan: Patient's hematocrit at this time is 35% I suspect this will drop down quite significantly over the next 24-48 hours. We will continue to monitor and support the patient as needed. If hematocrit drops below 24% will write transfusion parameters/Lasix supplementation for units given. Current Visit: Yes (3) Personal history of colonic polyps Status: Acute Assessment and plan: The patient has had colon polyps removed approximately 3 years ago over at [facility] by 1 of their senior designer/art director. Attempt to obtain old records to see when her next colonoscopy will be required. It is presumed that she had a bleed at that time due to diverticulosis but this is speculation mostly on my part based on her foggy history of the event. Await full review of records. Current Visit: Yes (4) GERD (gastroesophageal reflux disease) Status: Acute Assessment and plan: The patient is taking pantoprazole on a daily basis and does not remember that she has much a problem with this condition. Current Visit: Yes History of Present Illness Chief complaint: Acute upper GI bleeding on aspirin and Plavix with syncope History of present illness: Ms. Wesley is a 81 year old female who was brought into the hospital after developing syncope 2 at home and passing melena. She felt her state of usual health up until about 11:30-12:00 PM when the patient had an eating piece of watermelon had a sudden wave of nausea, had [id number] vomiting and suffered her first syncopal event. She states that she hit her elbow and head. She woke up and was able to crawl to the bathroom when she was able to call her daughter and vomited to a trashcan nearby putting on the toilet. She passed black stools at that point and her daughter was able to come to the house and observe her prior to her having the second syncopal event while sitting at the bedside commode. Emergency services were contacted and the patient was taken by ambulance to [place] where she was noted to be hypotensive with a blood pressure of 88/45. She had been taking aspirin Plavix due to recent stent placement. She states that she does have a baseline epigastric tenderness and this is been present for many months, she has never had an episode of black stools like these but did have a (presumed) bleeding diverticulum discovered during colonoscopy at [facility] approximately 3 years ago, a few polyps were taken off at that time as well. She does not know what the pathology of those polyps were and was not told to return at any specific date. She does not typically have diarrhea but does have some occasional constipation for which she occasionally takes [id number] laxatives. She tries not to let herself go more than 2 days without stooling. She does not have any difficulty swallowing but does have some reflux for which she takes Protonix on a daily basis. Her hematocrit and hemoglobin are surprisingly 35.0 and 11.9 but I expect these to go down quite significantly as she equilibrates. PT/INR are 10.3 and 1.0. She states that she typically cannot take NSAIDs and specifically denies use of aspirin/Motrin/BC powders. Again the patient does take a baby dose of aspirin each day along with her Plavix and beta-blockers both metoprolol and labetalol. She does not remember who her [facility] senior designer/art director was. Home Medications Medication Instructions Recorded Confirmed Type Aspirin [Ecotrin] 81 mg PO QAM 02/24/15 02/27/17 History Levothyroxine Tab [Synthroid Tab] 75 mcg PO QAM 02/24/15 02/27/17 History Pravastatin [Pravachol] 40 mg PO BEDTIME 02/24/15 02/27/17 History Clopidogrel [Plavix] 75 mg PO QAM 04/17/16 02/27/17 History Pantoprazole Tab [Protonix Tab] 40 mg PO QAM 04/17/16 02/27/17 History Aclidinium [place] [Tudorza 400 mcg INH BID 07/31/16 02/27/17 History Pressair] Budesonide/Formoterol Fumarate 2 puffs INH BID 11/04/16 02/27/17 History [Symbicort 160-4.5 Mcg Inhaler] Ferrous Sulfate [Ferrous Sulfate 325 mg PO BID 11/04/16 02/27/17 History Cap] Nitroglycerin [Nitroglycerin SL 0.4 mg SL Q5M PRN 11/04/16 02/27/17 History Tab] Metoprolol Tartrate Tab [Lopressor 25 mg PO BID #60 tablet 11/15/16 02/27/17 Rx Tab] Isosorbide Mononitrate [Isosorbide 60 mg PO QAM 02/27/17 02/27/17 History Mononitrate ER] Labetalol HCl [Labetalol HCl] 100 mg PO QAM 02/27/17 02/27/17 History Losartan Potassium [Losartan 25 mg PO QAM 02/27/17 02/27/17 History Potassium] Vit C/Vit E AC/Lut/Copper/Zinc 1 each PO QAM 02/27/17 02/27/17 History [Preservision Lutein Softgel] Allergies Allergy/AdvReac Type Severity Reaction Status Date / Time adhesive tape Allergy RASH Verified 11/12/16 06:05 Penicillins Allergy RASH Verified 11/12/16 06:05 Sulfa (Sulfonamide Allergy RASH Verified 11/12/16 06:05 Antibiotics) sulfamethoxazole Allergy RASH Verified 11/12/16 06:05 [From Bactrim] trimethoprim [From Bactrim] Allergy RASH Verified 11/12/16 06:05 Medical,Surgical,& Family Hx - Medical History Cardio: History of: CAD, Hypertension, [place], PVD Neurology: No history of: Brain Aneurysm, Cerebral Hemorrhage, Cerebrovascular Accident , Cerebral Palsy, Dementia, Migraine, Multiple Sclerosis, Parkinson's Disease, Peripheral Neuropathy, Seizures, TIA, Vertigo, Neurologocal Cancer HEENT: History of: Eye Problem (AMD) Endocrine: History of: Thyroid Disorder (hypothyroid) No history of: Diabetes Mellitus (IDDM), Diabetes Mellitus (NIDDM), Dyslipidemia Respiratory: History of: COPD, Obstructive Sleep Apnea, Pneumonia Genitourinary: History of: Kidney Stones, Recurring Urinary Tract Infections Gastrointestinal: History of: GERD, Gastrointestinal Bleed (2014), Polyps Musculoskeletal: History of: Musculoskeletal Problems (arthritis) Hematology: History of: Bleeding Problems (GI bleed 2014) Reproductive: History of: Reproductive Cancer (cervical) Other: History of: Cancer (uterine cancer) - Surgical History Cardiac Surgeries: Sugical HX of: Femoral-Popliteal Bypass Graft, Cardiac Catheterization (april 2016, stents), Cardiac Surgery (heart stents in place.By pass in left leg.) Thoracic Surgeries: Patient denies;: Organ Transplant Neurologic Surgeries: Patient denies: Brain Aneurysm, Cerebral Hemorrhage, Neurologic Surgery HEENT Surgeries: Surgical HX of: Eye Surgery (cataract surgery), Thyroid Surgery (hypothyroidism), Tonsilectomy & Adenoidectomy Abdominal Surgeries: Surgical HX of: Appendectomy, Colonoscopy Reproductive Surgeries: Surgical HX of;: Hysterectomy (1961) Orthopedic Surgeries: Surgical HX of;: Implanted Devices (tawanna to right leg), Orthopedic Surgery (right rotator cuff repair, right knee surgery, right hip fracture) - Family History Family History: Reports;: Family Diabetes (both sons), Family Heart Disease ( father had heart attack) Denies;: Family Cancer - Social History Smoking Status: Former smoker Review of systems: Constitutional: Denies fever, chills, but does complain of recent nausea, and vomiting Eyes: Denies dry eyes, and scleral icterus HENT: Denies headaches Cardiovascular: Denies acute chest pain and claudication Respiratory: Denies shortness of breath, wheezing, and difficulty breathing, denies cough Gastrointestinal: As noted in the HPI Genitourinary: Denies dysuria and hematuria Neurologic: Denies vision loss, and loss of sensation, recent syncope today. Musculoskeletal: Patient does have some joint swelling, joint stiffness, and muscular weakness Psychiatric: Denies depression and radha symptoms Heme-Lymph: Denies easy bruising, lymph node enlargement or tenderness, night sweats, excessive bleeding Allergies-immunologic: Denies pruritus and rhinorrhea, she does have psoriasis noted with plaques on her bilateral legs Exam - Constitutional Vitals: Period Temp Pulse Resp BP Sys/Jerez Pulse Ox Last 24 Hr 97.2 F-97.2 F 88-88 20-20 88-88/45-45 98-99 Exam: Constitutional: Well-developed, well-nourished, alert, and in no acute distress Head and face: Head: Normocephalic atraumatic Eyes: Conjunctiva without injection, no gross scleral icterus, pupils equal and round bilaterally, there are lens implants bilaterally Ears: Intact to conversation in both ears Nose: External appearance is normal, nares patent Mouth: Oral mucous membranes moist without erythema dentition noted to be edentulous with dentures that are implanted in place. Neck: Normal appearance, no masses or tenderness, trachea midline Thyroid: Gland midline and appropriate size for age Respiratory: Normal respiratory effort, clear to auscultation without wheezes, rhonchi or rales Cardiovascular: Regular rate and rhythm, normal S1, S2, the exam is without rubs, murmurs or gallops. Gastrointestinal: Moderate tenderness to deep palpation in the epigastric region. Normal active bowel sounds, tone normal without rigidity or guarding, no masses present, no hepatomegaly, no spleen tip felt. Rectal exam shows jet black stool slightly decreased tone in the rectum small internal hemorrhoids palpated, stool is grossly guaiac positive. Lymphatic: Neck without adenopathy, axilla without lymphadenopathy present Musculoskeletal: Right and left lower extremities without evidence of edema Skin and subcutaneous tissue: No ulcerations noted, normal skin turgor, digits and nails without clubbing/cyanosis/deformities. Psoriasis plaques are noted on the pretibial regions bilaterally. Neurologic: The patient is grossly oriented to person place and time, cranial nerves show tongue movements are normal with normal tongue extrusion midline, light touch sensation is intact. Psychiatric: No hallucinations or delusions are present, does not appear depressed Results - Labs CBC & BMP: 02/27/17 15:15 02/27/17 15:15 Quality Measures - VTE Contraindication to Pharmacological VTE Prophylaxis: High Risk of Bleeding
[2017-02-27] MEDS ORDERED: SODIUM CHLORIDE 0.9% 250 ML IV PRN (18:40)
[2017-02-27] MEDS: SODIUM CHLORIDE 0.9% 1,000 ML IV SCH (20:20)
[2017-02-27] MEDS: PANTOPRAZOLE 40 MG VIAL IV SCH (20:59)
[2017-02-27] MEDS: FERROUS SULFATE 325 MG TABLET PO SCH (21:00)
[2017-02-27] MEDS: BUDESONIDE/FORMOTEROL 160-4.5 INHALER 6 GM INH SCH (21:00)
[2017-02-27] MEDS: PRAVASTATIN 20 MG TABLET PO SCH (21:00)
[2017-02-28 03:02] LABS: Hemoglobin 9.5 GM/DL (12.0-16.0)
[2017-02-28 03:29] LABS: Basophils % 0.2 % (0.0-0.8); Eosinophils % 0.7 % (0.00-10.9); Hematocrit 27.8 VOL% (35.7-47.0); Hemoglobin 9.4 GM/DL (12.0-16.0); Immature Granulocytes % 0.5 %; Immature Granulocytes Absolute 0.03 #; Lymphocytes # 0.1 10*3/uL (1.4-4.0); Lymphocytes % 1.9 % (21.3-54.2); Mean Corpuscular HGB Conc 33.8 GM/DL (32-36); Mean Corpuscular Hemoglobin 33 PG (27-34); Mean Corpuscular Volume 97.9 FL (87-102); Mean Platelet Volume 12.2 FL (9.6-12.0); Monocytes # 0.2 10*3/uL (0.11-0.8); Monocytes % 4.1 % (1.7-12.7); Neutrophils # 5.4 10*3/uL (1.4-7.4); Neutrophils % 92.6 % (38.7-73.9); Platelet Count 137 T/CUMM (130-400); Red Blood Count 2.84 MC/CUMM (3.8-5.5); Red Cell Distribution Width 13.3 % (9.3-17.3); White Blood Count 5.8 T/CUMM (4-12)
[2017-02-28] MEDS: SODIUM CHLORIDE 0.9% 1,000 ML IV SCH ×2 (04:25→16:05)
[2017-02-28 04:41] LABS: Band Neutrophils 1 % (0-10); Lymphocytes 2 % (20-55); Platelet Estimate Decreased; Segmented Neutrophils 93 % (50-85); Total Cells Counted 100
--- NOTE | 2017-02-28 07:57 | Event Note ---
I stopped by to see Ms. Wesley in consultation this morning but she was not in her room. I am told by the nursing staff that she has been taken to the GI Lab for GI procedure. I'll check back in on her when she returns.
[2017-02-28] MEDS ORDERED: PROPOFOL 200 MG/20 ML VIAL IV ONE (08:48)
[2017-02-28] MEDS ORDERED: LIDOCAINE 1% 5 ML VIAL ONE (08:48)
--- NOTE | 2017-02-28 09:13 | Operative Note ---
Date of procedure: 02/28/17 Pre-op diagnosis: UGIB on aspirin/Plavix, drop in hematocrit from 35-28% Post-op diagnosis: other (Bleeding appears to be from a probable Dieulafoy's lesion in the fundus now status post Endo Clip 2. Very mild gastritis noted and no duodenitis, 2 cm hiatal hernia noted incidentally.) Procedure: PROCEDURE: Esophagogastroduodenoscopy (EGD) with cold biopsy for pathology and Endo Clip for hemostasis 2 REFERRING PHYSICIAN: Dr. Lashay Castellanos MD INDICATIONS: Drop in hematocrit from 35% to 28% with melena, patient on aspirin and Plavix. The prior H&P was reviewed and interrim changes are as noted: No change from GI consultation yesterday ENDOSCOPIST: Alfonzo Cueva MD ENDOSCOPE: Olympus Video 100 System upper endoscope ASA CLASS: 4 EXAM: CV: regular rate and rhythm respiratory: Clear without wheezes abdominal: active bowel sounds MEDICATION: Per nursing anesthesia protocol, see their notes PROCEDURE: After discussion of the potential risks and benefits of upper endoscopy, the informed consent was obtained. The patient was then placed in the left lateral decubitus position where sedation was achieved as noted above. Esophageal intubation was performed without difficulty, and the endoscope was advanced through the esophagus, stomach and duodenum. A slow withdrawal was then performed with retroflexion in the stomach for careful inspection of the incisura angularis, fundus and cardia. The scope was then returned to a neutral position and withdrawn through the esophagus. The patient tolerated the procedure well and without complication. BIOPSIES: Gastric antrum/body PHOTOGRAPHS: obtained FINDINGS: Hypopharynx and Larynx: Normal Esohagoscopy Upper and middle thirds: Normal Lower third normal Esophogastric junctions: Normal Gastroscopy: Cardia/Fundus: 2 cm hiatal hernia and a Dieulafoy's lesion identified in the fundus status post Endo Clip 2 with good hemostasis, this was weeping upon gentle pressure. Body: Very mild gastritis, diffuse, biopsied, no evidence of blood in the stomach upon entry until above lesion "brushed" Antrum and pylorus very mild diffuse gastritis, biopsied Duodenoscopy: Bulb normal Second and third portions: Normal IMPRESSION: Bleeding appears to be from a probable Dieulafoy's lesion in the fundus now status post Endo Clip 2. Very mild gastritis noted and no duodenitis, 2 cm hiatal hernia noted incidentally. RECOMMENDATIONS: Would suggest leaving the patient off of her aspirin Plavix 1 week, if this is safe from a Cardiologic standpoint. Follow up for biopsy results in 1-2 weeks by phone [phone] Continue anti-gastroesophageal reflux measures (avoid carbonated and acidic beverages, avoid eating within 2 hours of bedtime, avoid tight fitting clothing , and elevate the front bed posts 6 inches prior to sleeping. Protonix need only be once daily. We can advance diet as tolerated at this point. Continue to monitor hematocrit, may wish to leave in the CCU 1 more day. Alfonzo Cueva MD COPY TO: Dr. Lashay Castellanos MD Anesthesia: MAC Surgeon / Physician: Alfonzo Cueva Estimated blood loss: minimal Specimens: other (Gastric antrum/body) Condition: stable Disposition: post procedure unit (G.I. Suite) Results - Labs CBC & BMP: 02/28/17 02:31 02/27/17 15:15 Discharge Plan - Discharge Medications No Action Clopidogrel [Plavix] 75 mg PO QAM Pantoprazole Tab [Protonix Tab] 40 mg PO QAM Aclidinium [place] [Tudorza Pressair] 400 mcg INH BID Ferrous Sulfate [Ferrous Sulfate Cap] 325 mg PO BID Nitroglycerin [Nitroglycerin SL Tab] 0.4 mg SL Q5M PRN PRN Reason: Chest Pain Budesonide/Formoterol Fumarate [Symbicort 160-4.5 Mcg Inhaler] 2 puffs INH BID Labetalol HCl [Labetalol HCl] 100 mg PO QAM Isosorbide Mononitrate [Isosorbide Mononitrate ER] 60 mg PO QAM Vit C/Vit E AC/Lut/Copper/Zinc [Preservision Lutein Softgel] 1 each PO QAM Metoprolol Tartrate Tab [Lopressor Tab] 25 mg PO BID #60 tablet Losartan Potassium [Losartan Potassium] 25 mg PO QAM Pravastatin [Pravachol] 40 mg PO BEDTIME Levothyroxine Tab [Synthroid Tab] 75 mcg PO QAM Aspirin [Ecotrin] 81 mg PO QAM - Follow Up or Referral - Forms/Instructions
--- NOTE | 2017-02-28 09:17 | Gastrointestinal Progress Note ---
Assessment and Plan (1) Acute upper GI bleeding Status: Acute Assessment and plan: This patient is taking aspirin and Plavix and as a result may have bleeding from variety of different potential causes including: Esophagitis, gastritis, duodenitis, peptic ulcer disease, gastric cancer, esophageal cancer, AVMs and Dieulafoy's lesion. We should be able to discern the cause based on endoscopy tomorrow provided the field is clean of residual blood. She is given Protonix twice daily and this is likely adequate to cover her by IV. She is a long-term epigastric tenderness and this may represent gastritis versus ulcer versus Helicobacter pylori infection. Upper endoscopy will take place tomorrow hopefully sometime between 7 and 9 AM. Further recommendations post evaluation. Patient was advised that there are risks involved with upper endoscopy which include but are not limited to: Bleeding, infection, perforation , cardiac and pulmonary compromise. The history was taken in the presence of Laura the patient's daughter who is in agreement with the plan. 02/28/17--EGD done today, bleeding seen in the fundus thought secondary to a Dieulafoy's lesion. This was endoclipped. No other bleeding seen in the stomach, this was thought to be a source of the bleed. Would suggest leaving off of aspirin/Plavix for 1 week if this is safe from a Cardiologic standpoint. Current Visit: Yes (2) Acute posthemorrhagic anemia Status: Acute Assessment and plan: Patient's hematocrit at this time is 35% I suspect this will drop down quite significantly over the next 24-48 hours. We will continue to monitor and support the patient as needed. If hematocrit drops below 24% will write transfusion parameters/Lasix supplementation for units given. 02/28/17--as noted above. Current Visit: Yes (3) Personal history of colonic polyps Status: Acute Assessment and plan: The patient has had colon polyps removed approximately 3 years ago over at [facility] by 1 of their research and development specialist. Attempt to obtain old records to see when her next colonoscopy will be required. It is presumed that she had a bleed at that time due to diverticulosis but this is speculation mostly on my part based on her foggy history of the event. Await full review of records. 02/28/17--still awaiting old records from [facility]. Current Visit: Yes (4) GERD (gastroesophageal reflux disease) Status: Acute Assessment and plan: The patient is taking pantoprazole on a daily basis and does not remember that she has much a problem with this condition. Current Visit: Yes Gastroenterology - PN: Subj Interval history: No new complaints, drop in hematocrit from 35-28% over the evening time. Exam (Progress Note) - Constitutional Vitals: Period Temp Pulse Resp BP Sys/Jerez Pulse Ox Last 24 Hr 97.2 F-98.7 F 62-88 15-21 88-129/40-049 95-100 General appearance: no acute distress - Eye Eye exam: Present: EOMI - Respiratory Respiratory exam: Present: clear to auscultation bilaterally - Cardiovascular Cardiovascular exam: Present: regular rate and rhythm - GI/Abdominal GI/Abdominal exam: Present: normal bowel sounds, soft. Absent: distended, tenderness, rebound - Extremities Exam Extremities exam: Present: normal inspection - Psychiatric Psychiatric exam: Present: normal affect, normal mood - Skin Skin exam: Present: warm Results - Labs CBC & BMP: 02/28/17 02:31 02/27/17 15:15
--- NOTE | 2017-02-28 09:44 | Anesthesia Post-Op ---
Anesthesia Post OP - Post Ansesthetic Evaluation Patient seen in post op: Yes Resp: within normal limits CV: within normal limits Mental: within normal limits Temp: within normal limits [id number]: within normal limits Nausea and Vomiting: within normal limits Pain: within normal limits
[2017-02-28] MEDS ORDERED: CLOPIDOGREL 75 MG TABLET PO SCH (11:00)
[2017-02-28 11:10] LABS: Hematocrit 27.8 VOL% (35.7-47.0); Hemoglobin 9.3 GM/DL (12.0-16.0)
[2017-02-28] MEDS: IPRATROPIUM 500 MCG/2.5 ML NEB RESP TX SCH ×3 (11:56→19:39)
--- NOTE | 2017-02-28 12:03 | Physician Query Form ---
CLICK EDIT DOCUMENT TO SELECT QUERY ANSWER --> OK --> SIGN Ysabel Cramer RN Clinical Clinical Product Specialist W) [phone] (f) [phone] [email or web address] PROVIDERS: Make your selection(s) from the choices in EACH section by typing an "x" and enter comments in the comment section. Please use your independent medical judgment in providing your response. This request does not imply that any particular answer is desired or expected. CLINICAL INDICATORS: (Providers should not edit this section) Based on documentation of "Acute upper GI bleeding" "Patient is on Plavix. She is also on baby aspirin" EGD shows "Bleeding appears to be from a probable Dieulafoy's lesion in the fundus now status post Endo Clip 2" "Would suggest leaving the patient off of her aspirin Plavix 1 week" Based on the above, could you clarify the appropriate diagnosis, if significant , that supports the above abnormalities and additional evaluation, monitoring, and/or treatment rendered: ( ) Acute GI Bleeding due to Extrinsic Circulating Anticoagulants (X ) Acute GI Bleeding NOT due to Extrinsic Circulating Anticoagulants ( ) Other, please specify: ( ) Clinically unable to determine COMMENTS: PLEASE ALSO DOCUMENT RESPONSE IN PROGRESS NOTES AND/OR DISCHARGE SUMMARY Use of terms such as suspected, likely, or probable (associated with a specific diagnosis that is being evaluated, monitored, or treated as if it exists) are acceptable and can be restated in the discharge summary if not ruled out. MTDD
--- NOTE | 2017-02-28 12:07 | Cardiology Consult Note ---
Assessment and Plan - Time spent with patient Time spent with patient: Greater than 30 minutes (due to assessment, plan, and documentation) (1) Acute upper GI bleed Status: Acute Assessment and plan: See plan of care listed below. Current Visit: Yes (2) Status post coronary artery stent placement Status: Chronic Assessment and plan: See plan of care listed below. Current Visit: Yes (3) Coronary artery disease Status: Chronic Assessment and plan: See plan of care listed below. Current Visit: Yes (4) Hypertension Status: Chronic Assessment and plan: See plan of care listed below. Current Visit: No Qualifiers: Hypertension type: essential hypertension Qualified Code(s): I10 - Essential (primary) hypertension (5) Hyperlipidemia Status: Chronic Assessment and plan: See plan of care listed below. Current Visit: Yes (6) COPD (chronic obstructive pulmonary disease) Status: Chronic Assessment and plan: See plan of care listed below. Current Visit: Yes (7) Status post placement of cardiac pacemaker Status: Chronic Assessment and plan: See plan of care listed below. Current Visit: No (8) Syncope Status: Acute Assessment and plan: See plan of care listed below. Current Visit: Yes History of Present Illness - Data of Consult Patient: known to practice within the last 3 years Consult date: 02/27/17 Requesting Physician: Nate Hernández Primary care physician: Edson Weber - Consult Narrative Reason for consult: GI Bleed, on ASA/Plavix due to recent stent History of present illness: Security Clerk: Dr. Evans PCP: Dr. Edson Weber in [place], [place] Ms. Wesley is a 81 year old female with a history of coronary artery disease, hypertension, hyperlipidemia, COPD, peripheral vascular disease, obstructive sleep apnea, hypothyroidism. She is status post dual-chamber pacemaker placement by Dr. Mahoney on 11/14/2016 for symptomatic bradycardia. She has a history of stent placement with most recent PCI 11/12/2016 Dr. Evans. She had drug-eluting stent placed to a high-grade mid left circumflex stenosis. Previously on 04/17/2016, she underwent PCI with drug-eluting stent to the proximal RCA. Ms. Wesley presented to the emergency room via EMS following 2 syncopal episodes. She states that she was in her kitchen eating watermelon when she began to feel faint and subsequently passed out. She is unsure exactly how long she was unconscious but woke up and called her daughter and went to the bathroom. When she went to the bathroom, she passed a dark, tarry stool and subsequently passed out again. Her daughter found her and called 911. In the emergency room, she was noted to be hypotensive with a blood pressure of 97/45. Patient confirmed blurry "foggy" vision, abdominal pain-primarily in the epigastric region, and nausea. She was admitted to hospitalist services and we were subsequently consulted to see her. She underwent EGD this morning with Endo Clip for hemostasis x2 to for Dieulafoy's lesion to the fundus. Ideally, she would need to be off of her Aspirin and Plavix for a week to recover from this event; however, she has a 3 month old stent and holding DAPT would put her at high risk for recurrent cardiac event. I've discussed her case with Dr. Perry, and we will continue with an enteric-coated baby aspirin for now, and hold her Plavix for a couple of days. We'll continue to monitor her blood counts and if necessary, transfuse. On arrival, she was noted to be in an atrial paced rhythm with H&H 11.9 and 35.0. H&H today was 9.3 and 27.8 (this was verified by lab with a repeat check) . Her potassium is 4.2, creatinine 0.9. Troponin was negative. ASSESSMENT/PLAN: 1. GI BLEED - She underwent EGD this morning with Endo Clip for hemostasis x2 to for Dieulafoy's lesion to the fundus. She is receiving iron supplements and Protonix IV BID. We will continue to monitor her blood counts. 2. S/P CORONARY STENT PLACEMENT - Now with GI Bleed. We will hold Plavix for a couple of days and continue with EC ASA for now. Hopefully her bleeding has been stopped. 3. CORONARY ARTERY DISEASE - She has a history of stent placement with most recent PCI 11/12/2016 Dr. Evans. She had drug-eluting stent placed to a high- grade mid left circumflex stenosis. Previously on 04/17/2016, she underwent PCI with drug-eluting stent to the proximal RCA. 4. HYPERTENSION - Will continue beta selene and ARB, monitor and adjust accordingly throughout hospital stay. 5. HYPERLIPIDEMIA - Continue lipid lowering agent. 6. COPD - Chronic. Currently stable. 7. S/P DUAL CHAMBER PACEMAKER PLACEMENT - Placed 11/14/16 for symptomatic bradycardia. 8. SYNCOPE - Likely related to her anemia and GI bleed. However, we will ask Delmar Rosales [employer] rep to interrogate her device to rule out arrhythmia as an underlying cause for her syncope. CC: Lashay Castellanos MD - Home Medications and Allergies Home Medications: Home Medications Medication Instructions Recorded Confirmed Type Aspirin [Ecotrin] 81 mg PO QAM 02/24/15 02/27/17 History Levothyroxine Tab [Synthroid Tab] 75 mcg PO QAM 02/24/15 02/27/17 History Pravastatin [Pravachol] 40 mg PO BEDTIME 02/24/15 02/27/17 History Clopidogrel [Plavix] 75 mg PO QAM 04/17/16 02/27/17 History Pantoprazole Tab [Protonix Tab] 40 mg PO QAM 04/17/16 02/27/17 History Aclidinium [place] [Tudorza 400 mcg INH BID 07/31/16 02/27/17 History Pressair] Budesonide/Formoterol Fumarate 2 puffs INH BID 11/04/16 02/27/17 History [Symbicort 160-4.5 Mcg Inhaler] Ferrous Sulfate [Ferrous Sulfate 325 mg PO BID 11/04/16 02/27/17 History Cap] Nitroglycerin [Nitroglycerin SL 0.4 mg SL Q5M PRN 11/04/16 02/27/17 History Tab] Metoprolol Tartrate Tab [Lopressor 25 mg PO BID #60 tablet 11/15/16 02/27/17 Rx Tab] Isosorbide Mononitrate [Isosorbide 60 mg PO QAM 02/27/17 02/27/17 History Mononitrate ER] Labetalol HCl [Labetalol HCl] 100 mg PO QAM 02/27/17 02/27/17 History Losartan Potassium [Losartan 25 mg PO QAM 02/27/17 02/27/17 History Potassium] Vit C/Vit E AC/Lut/Copper/Zinc 1 each PO QAM 02/27/17 02/27/17 History [Preservision Lutein Softgel] Allergies/Adverse Reactions: Allergies Allergy/AdvReac Type Severity Reaction Status Date / Time adhesive tape Allergy RASH Verified 11/12/16 06:05 Penicillins Allergy RASH Verified 11/12/16 06:05 Sulfa (Sulfonamide Allergy RASH Verified 11/12/16 06:05 Antibiotics) sulfamethoxazole Allergy RASH Verified 11/12/16 06:05 [From Bactrim] trimethoprim [From Bactrim] Allergy RASH Verified 11/12/16 06:05 Review of systems: - Constitutional: Present: fatigue, As per HPI. Absent: anorexia, chills, daytime sleepiness, excessive sweating, fever(s), frequent falls, headache(s), increased appetite, lethargy, malaise, night sweats, stops breathing during sleep, weakness, weight gain, weight loss. - EENT Eyes: Present: blurry vision, As per HPI. Absent: diplopia, loss of vision Ears: Present: As per HPI. Absent: decreased hearing, ear discharge, ear pain Nose, mouth and throat: Present: As per HPI. Absent: dysphagia, epistaxis, headache(s), hoarseness, lip swelling, nasal congestion, neck mass, neck pain, sinus pressure, sore throat, throat swelling, tongue swelling, vertigo - Cardiovascular: Present: as per HPI. Absent: chest pain at rest, chest pain with activity, dyspnea, dyspnea on exertion, edema, claudication, diaphoresis, radiating jaw, neck or arm pain, lightheadedness, orthopnea, palpitations, PND - Respiratory: Present: as per HPI. Absent: dyspnea, dyspnea on exertion, cough , hemoptysis, wheezing, snoring, pain on inspiration - Gastrointestinal: Present: abdominal pain, nausea, melena, As per HPI. Absent : bloating, change in bowel habits, constipation, diarrhea, heartburn, hematemesis, hematochezia, loose stools, vomiting - Genitourinary: Present: As per HPI. Absent: difficulty urinating, dysuria, flank pain, hematuria, nocturia, urinary frequency, urinary incontinence - Musculoskeletal: Present: As per HPI. Absent: arthralgias, back pain, joint swelling, limited range of motion, muscle cramps, muscle weakness, myalgias - Neurological: Present: syncope, As per HPI. Absent: abnormal gait, abnormal speech, behavioral changes, confusion, convulsions, disequilibrium, dizziness, focal weakness, frequent falls, headache(s), memory loss, numbness, paresthesias , radicular pain, tremor(s) - Psychiatric: Present: As per HPI. Absent: anxiety, confusion, depression, panic attacks - Endocrine: Present: fatigue, As per HPI. Absent: cold intolerance, heat intolerance, polydipsia, polyphagia - Hematologic/Lymphatic: Present: easy bleeding, easy bruising, As per HPI. Absent: lymphadenopathy Medical,Surgical,& Family Hx - Medical History Cardio: History of: CAD, Hypertension, NC, PVD Neurology: No history of: Brain Aneurysm, Cerebral Hemorrhage, Cerebrovascular Accident , Cerebral Palsy, Dementia, Migraine, Multiple Sclerosis, Parkinson's Disease, Peripheral Neuropathy, Seizures, TIA, Vertigo, Neurologocal Cancer HEENT: History of: Eye Problem (AMD) Endocrine: History of: Thyroid Disorder (hypothyroid) No history of: Diabetes Mellitus (IDDM), Diabetes Mellitus (NIDDM), Dyslipidemia Respiratory: History of: COPD, Obstructive Sleep Apnea, Pneumonia Genitourinary: History of: Kidney Stones, Recurring Urinary Tract Infections Gastrointestinal: History of: GERD, Gastrointestinal Bleed (2014), Polyps Musculoskeletal: History of: Musculoskeletal Problems (arthritis) Hematology: History of: Bleeding Problems (GI bleed 2014) Reproductive: History of: Reproductive Cancer (cervical) Other: History of: Cancer (uterine cancer) - Surgical History Cardiac Surgeries: Sugical HX of: Femoral-Popliteal Bypass Graft, Cardiac Catheterization (april 2016, stents), Cardiac Surgery (heart stents in place.By pass in left leg.) Thoracic Surgeries: Patient denies;: Organ Transplant Neurologic Surgeries: Patient denies: Brain Aneurysm, Cerebral Hemorrhage, Neurologic Surgery HEENT Surgeries: Surgical HX of: Eye Surgery (cataract surgery), Thyroid Surgery (hypothyroidism), Tonsilectomy & Adenoidectomy Abdominal Surgeries: Surgical HX of: Abdominal Surgery, Appendectomy, Colonoscopy, EGD Reproductive Surgeries: Surgical HX of;: Hysterectomy (1961) Orthopedic Surgeries: Surgical HX of;: Implanted Devices (ta[place]anna to right leg), Orthopedic Surgery (right rotator cuff repair, right knee surgery, right hip fracture) - Family History Family History: Reports;: Family Diabetes (both sons), Family Heart Disease ( father had heart attack) Denies;: Family Cancer - Social History Smoking Status: Former smoker Frequency of Alcohol Use: None Type of Drug Use: None Physical Examination Vital Signs Temp Pulse Resp BP Pulse Ox 97.2 F L 88 20 88/45 98 02/27/17 14:58 02/27/17 14:58 02/27/17 14:58 02/27/17 14:58 02/27/17 14:58 Exam: General appearance: Pleasant and cooperative. Overweight, no acute distress. Head exam: Present: normal inspection, normocephalic, atraumatic. Absent: hematoma, laceration Eye exam: Present: EOMI. Absent: conjunctival injection, nystagmus, periorbital swelling, scleral icterus, laceration to eyelids Pupils: Present: PERRL. Absent: constricted, dilated, fixed, irregular, unequal ENT exam: Present: normal exam, normal external ear exam Neck exam: Present: normal inspection. Absent: lymphadenopathy, meningismus, tenderness, thyromegaly Respiratory exam: Present: clear to auscultation bilaterally. Absent: accessory muscle use, chest wall tenderness, rales, rhonchi, wheezing. Cardiovascular exam: Present: regular rate and rhythm. Absent: gallop, JVD, rubs GI/Abdominal exam: Present: normal bowel sounds, soft. Absent: distended, firm , guarding, hernia, mass, tenderness, rebound. Extremities exam: Present: normal inspection, normal capillary refill. Upper extremity pulses 2+. Lower extremity pulses 2+. Absent: calf tenderness, edema Musculoskeletal: Present: No Fluid Collection, No Pain, Normal Range of Motion Neurological exam: Present: alert, oriented X3, grossly intact without resting or essential tremor Psychiatric exam: Present: normal affect, normal mood Skin exam: Present: normal color, warm, dry, intact. Absent: cyanosis, diaphoretic, rash, urticaria Result/EKG - Labs CBC & BMP: 02/28/17 10:25 02/27/17 15:15 Lab Results: I have reviewed the past 24 hour labs Labs: Laboratory Results - last 24 hr 02/27/17 02/27/17 02/27/17 15:15 15:15 15:15 WBC 9.3 RBC 3.68 L Hgb 11.9 L Hct 35.0 L MCV 95.1 MCH 32 MCHC 34.0 RDW 13.3 Plt Count 158 MPV 12.3 H Neut % (Auto) 85.1 H Lymph % (Auto) 6.3 L [place] % (Auto) 6.8 Eos % (Auto) 0.9 Baso % (Auto) 0.3 Neut # (Auto) 7.9 H Lymph # (Auto) 0.6 L [place] # (Auto) 0.6 Eos # (Auto) 0.1 Baso # (Auto) 0.0 Total Counted Immature Gran % 0.6 Nucleated RBC % 0.0 Immature Gran # 0.06 Segmented Neutrophils Band Neutrophils Lymphocytes Monocytes Nucleated RBCs # 0.00 Platelet Estimate Immature Plt Fraction 8.2 H INR PT Patient/Control Mix Circ Anticoag PTT Sodium 132 L Potassium 4.2 Chloride 94 L Carbon Dioxide 30 Anion Gap 12.2 BUN 30 H Creatinine 0.90 GFR Calculation 58 BUN/Creatinine Ratio 33.00 H Glucose 114 H Calculated Osmolality 270.5 L Calcium 9.3 Total Bilirubin 0.40 AST 19 ALT 15 Alkaline Phosphatase 109 Troponin I < 0.015 Total Protein 6.6 Albumin 3.6 Globulin 3.0 Albumin/Globulin Ratio 1.2 Blood Type O POSITIVE Antibody Screen Negative 02/27/17 02/28/17 02/28/17 15:40 02:31 02:31 WBC 5.8 D RBC 2.84 L D Hgb 9.5 L D 9.4 L Hct 28.0 L 27.8 L MCV 97.9 MCH 33 MCHC 33.8 RDW 13.3 Plt Count 137 MPV 12.2 H Neut % (Auto) 92.6 H Lymph % (Auto) 1.9 L [place] % (Auto) 4.1 Eos % (Auto) 0.7 Baso % (Auto) 0.2 Neut # (Auto) 5.4 Lymph # (Auto) 0.1 L [place] # (Auto) 0.2 Eos # (Auto) 0.0 Baso # (Auto) 0.0 Total Counted 100 Immature Gran % 0.5 Nucleated RBC % 0.0 Immature Gran # 0.03 Segmented Neutrophils 93 H Band Neutrophils 1 Lymphocytes 2 L Monocytes 4 Nucleated RBCs # 0.00 Platelet Estimate Decreased Immature Plt Fraction 0.0 INR 1.0 PT Patient/Control Mix 10.3 Circ Anticoag PTT 23.0 Sodium Potassium Chloride Carbon Dioxide Anion Gap BUN Creatinine GFR Calculation BUN/Creatinine Ratio Glucose Calculated Osmolality Calcium Total Bilirubin AST ALT Alkaline Phosphatase Troponin I Total Protein Albumin Globulin Albumin/Globulin Ratio Blood Type Antibody Screen 02/28/17 10:25 WBC RBC Hgb 9.3 L Hct 27.8 L MCV MCH MCHC RDW Plt Count MPV Neut % (Auto) Lymph % (Auto) [place] % (Auto) Eos % (Auto) Baso % (Auto) Neut # (Auto) Lymph # (Auto) [place] # (Auto) Eos # (Auto) Baso # (Auto) Total Counted Immature Gran % Nucleated RBC % Immature Gran # Segmented Neutrophils Band Neutrophils Lymphocytes Monocytes Nucleated RBCs # Platelet Estimate Immature Plt Fraction INR PT Patient/Control Mix Circ Anticoag PTT Sodium Potassium Chloride Carbon Dioxide Anion Gap BUN Creatinine GFR Calculation BUN/Creatinine Ratio Glucose Calculated Osmolality Calcium Total Bilirubin AST ALT Alkaline Phosphatase Troponin I Total Protein Albumin Globulin Albumin/Globulin Ratio Blood Type Antibody Screen - EKG EKG results: interpreted by me, sinus rhythm (with atrial pacing) Quality Measures - VTE Contraindication to Pharmacological VTE Prophylaxis: High Risk of Bleeding
[2017-02-28] MEDS: LEVOTHYROXINE 75 MCG TABLET PO SCH (13:48)
[2017-02-28] MEDS: ASPIRIN EC 81 MG TABLET PO SCH (13:50)
[2017-02-28] MEDS: FERROUS SULFATE 325 MG TABLET PO SCH ×2 (13:50→20:37)
[2017-02-28] MEDS: MULTIVITAMIN (CENTRUM) TABLET PO SCH (13:50)
[2017-02-28] MEDS: LOSARTAN 25 MG TABLET PO SCH (13:50)
[2017-02-28] MEDS: METOPROLOL TARTRATE 25 MG TABLET PO SCH ×2 (13:51→20:37)
[2017-02-28] MEDS: BUDESONIDE/FORMOTEROL 160-4.5 INHALER 6 GM INH SCH ×2 (13:51→20:38)
[2017-02-28] MEDS: PANTOPRAZOLE 40 MG VIAL IV SCH ×2 (13:52→20:38)
--- NOTE | 2017-02-28 17:37 | Hospitalist Progress Note ---
Assessment and Plan (1) Acute upper GI bleed Status: Acute Assessment and plan: Secondary to Dieulafoy lesion. Status post endo-clipping 2. GI recommends off aspirin and Plavix for a week. Current Visit: Yes (2) Coronary artery disease Status: Chronic Assessment and plan: On aspirin and Plavix for CAD with a recent stent November 2016. See cardiology consult. Current Visit: Yes (3) Syncope Status: Acute Assessment and plan: Secondary to acute blood loss secondary to upper gastrointestinal bleeding. Current Visit: Yes Hospitalist: Subjective Interval history: Patient seen and examined. No acute events overnight. Case discussed with nursing staff. Labs reviewed. Patient underwent EGD this morning with evidence of Dieulafoy's lesion status post endo-clipping 2. ASSESSMENT/PLAN: 1. GI BLEED - She underwent EGD this morning with Endo Clip for hemostasis x2 to for Dieulafoy's lesion to the fundus. She is receiving iron supplements and Protonix IV BID. We will continue to monitor her blood counts. 2. S/P CORONARY STENT PLACEMENT - Now with GI Bleed. We will hold Plavix for a couple of days and continue with EC ASA for now. Hopefully her bleeding has been stopped. 3. CORONARY ARTERY DISEASE - She has a history of stent placement with most recent PCI 11/12/2016 Dr. Evans. She had drug-eluting stent placed to a high- grade mid left circumflex stenosis. Previously on 04/17/2016, she underwent PCI with drug-eluting stent to the proximal RCA. 4. HYPERTENSION - Will continue beta selene and ARB, monitor and adjust accordingly throughout hospital stay. 5. HYPERLIPIDEMIA - Continue lipid lowering agent. 6. COPD - Chronic. Currently stable. 7. S/P DUAL CHAMBER PACEMAKER PLACEMENT - Placed 11/14/16 for symptomatic bradycardia. 8. SYNCOPE - Likely related to her anemia and GI bleed. However, we will ask Delmar Rosales [employer] rep to interrogate her device to rule out arrhythmia as an underlying cause for her syncope. Exam - Constitutional Vitals: Period Temp Pulse Resp BP Sys/Jerez Pulse Ox Last 24 Hr 97.3 F-98.9 F 61-85 14-22 93-157/40-049 93-100 Exam: Constitutional System: No distress. No tremulousness. Head: Normocephalic, atraumatic. Ears, Nose and Throat System: No pain or tenderness. No epistaxis or discharge Eyes System: Pupils equal, round, and reactive. Extraocular muscles intact. Neck: Supple, without adenopathy, No jugular venous distention. Respiratory System: Chest clear to auscultation. Cardiovascular System: Heart with regular rate and rhythm. No murmur. GI System: Abdomen soft, nontender. Normo active bowel sounds present. Musculoskeletal System: limbs with no pedal edema. Full distal pulses. Neurological System: No discernable sensory deficit. No aphasia Psychiatric System: Conversation is rational Results - Labs CBC & BMP: 02/28/17 10:25 02/27/17 15:15 Lab Results: I have reviewed the past 24 hour labs Quality Measures - VTE Contraindication to Pharmacological VTE Prophylaxis: High Risk of Bleeding
[2017-02-28] MEDS ORDERED: KETOROLAC 15 MG/1 ML VIAL IV ONE (18:08)
[2017-02-28] MEDS ORDERED: ACETAMINOPHEN 325 MG TABLET PO PRN (18:10)
[2017-02-28] MEDS: PRAVASTATIN 20 MG TABLET PO SCH (20:37)
[2017-03-01] MEDS: SODIUM CHLORIDE 0.9% 1,000 ML IV SCH ×4 (00:05→16:20)
[2017-03-01] MEDS: LEVOTHYROXINE 75 MCG TABLET PO SCH (06:33)
[2017-03-01 06:42] LABS: Basophils % 0.3 % (0.0-0.8); Eosinophils # 0.1 10*3/uL (0.0-0.87); Eosinophils % 3.7 % (0.00-10.9); Hematocrit 30.2 VOL% (35.7-47.0); Hemoglobin 9.8 GM/DL (12.0-16.0); Immature Granulocytes % 0.6 %; Immature Granulocytes Absolute 0.02 #; Lymphocytes # 0.3 10*3/uL (1.4-4.0); Lymphocytes % 8.6 % (21.3-54.2); Mean Corpuscular HGB Conc 32.5 GM/DL (32-36); Mean Corpuscular Hemoglobin 32 PG (27-34); Mean Platelet Volume 12.2 FL (9.6-12.0); Monocytes # 0.4 10*3/uL (0.11-0.8); Monocytes % 11.7 % (1.7-12.7); Neutrophils # 2.6 10*3/uL (1.4-7.4); Neutrophils % 75.1 % (38.7-73.9); Platelet Count 111 T/CUMM (130-400); Red Blood Count 3.05 MC/CUMM (3.8-5.5); Red Cell Distribution Width 13.5 % (9.3-17.3); White Blood Count 3.5 T/CUMM (4-12)
[2017-03-01 07:27] LABS: Calcium 8.3 MG/DL (8.5-10.1); Osmolality,Calculated 269.8 MOS/KG (273-304); Potassium 3.7 MMOL/L (3.5-5.1)
[2017-03-01] MEDS: IPRATROPIUM 500 MCG/2.5 ML NEB RESP TX SCH ×4 (07:27→19:28)
[2017-03-01 07:49] LABS: Band Neutrophils 3 % (0-10); Eosinophils 7 % (0-10); Giant Platelets Few; Hypochromasia 1+; Lymphocytes 10 % (20-55); Platelet Estimate Decreased; Segmented Neutrophils 72 % (50-85); Total Cells Counted 100
--- NOTE | 2017-03-01 07:58 | Cardiology Progress Note ---
Assessment and Plan - Time spent with patient Time spent with patient: Less than 30 minutes (1) Acute upper GI bleed Status: Acute Assessment and plan: See plan of care listed below. Current Visit: Yes (2) Status post coronary artery stent placement Status: Chronic Assessment and plan: See plan of care listed below. Current Visit: Yes (3) Coronary artery disease Status: Chronic Assessment and plan: See plan of care listed below. Current Visit: Yes (4) Hypertension Status: Chronic Assessment and plan: See plan of care listed below. Current Visit: No Qualifiers: Hypertension type: essential hypertension Qualified Code(s): I10 - Essential (primary) hypertension (5) Hyperlipidemia Status: Chronic Assessment and plan: See plan of care listed below. Current Visit: Yes (6) COPD (chronic obstructive pulmonary disease) Status: Chronic Assessment and plan: See plan of care listed below. Current Visit: Yes (7) Status post placement of cardiac pacemaker Status: Chronic Assessment and plan: See plan of care listed below. Current Visit: No (8) Syncope Status: Acute Assessment and plan: See plan of care listed below. Current Visit: Yes Cardiology - PN: Subj Interval history: Hotel Administrative Assistant: Dr. Evans PCP: Dr. Edson Weber in [place], [place] SUMMARY: Ms. Wesley is a 81 year old female who presented to the emergency room via EMS following 2 syncopal episodes and was found to have a GI bleed. She has a history of coronary artery disease, hypertension, hyperlipidemia, COPD, peripheral vascular disease, obstructive sleep apnea, hypothyroidism. She is status post dual-chamber pacemaker placement by Dr. Mahoney on 11/14/2016 for symptomatic bradycardia. She has a history of stent placement with most recent PCI 11/12/2016 Dr. Evans. She had drug-eluting stent placed to a high-grade mid left circumflex stenosis. Previously on 04/17/2016, she underwent PCI with drug-eluting stent to the proximal RCA. We were consulted to see her due to anticoagulation issues. She underwent EGD on with Endo Clip for hemostasis x2 to for Dieulafoy's lesion to the fundus. We have no choice but to hold her Plavix for now. We'll continue aspirin 81 mg daily to reduce the risk of stent thrombosis. MARCH 01, 2017 UPDATE: Ms. Wesley is doing well this morning. She has not required blood transfusion as of yet and her blood counts remain stable. H&H 9.8 and 30.2 this morning. She states that her back is quite sore following her fall yesterday but she otherwise has no complaints. Blood pressure has been a little elevated. We'll resume her Imdur this morning as we held it following her presentation with hypotension yesterday. Will continue to monitor. ASSESSMENT/PLAN: 1. GI BLEED - She underwent EGD 02/28/17 with Endo Clip for hemostasis x2 to for Dieulafoy's lesion to the fundus. She is receiving iron supplements and Protonix IV BID. We will continue to monitor her blood counts. 2. S/P CORONARY STENT PLACEMENT - Now with GI Bleed. We will hold Plavix for a couple of days and continue with EC ASA for now. Hopefully her bleeding has been stopped. 3. CORONARY ARTERY DISEASE - She has a history of stent placement with most recent PCI 11/12/2016 Dr. Evans. She had drug-eluting stent placed to a high- grade mid left circumflex stenosis. Previously on 04/17/2016, she underwent PCI with drug-eluting stent to the proximal RCA. 4. HYPERTENSION - Will continue beta selene and ARB, monitor and adjust accordingly throughout hospital stay. 5. HYPERLIPIDEMIA - Continue lipid lowering agent. 6. COPD - Chronic. Currently stable. 7. S/P DUAL CHAMBER PACEMAKER PLACEMENT - Placed 11/14/16 for symptomatic bradycardia. 8. SYNCOPE - Likely related to her anemia and GI bleed. However, we will ask Delmar Rosales [employer] rep to interrogate her device to rule out arrhythmia as an underlying cause for her syncope. Exam (Progress Note) - Constitutional Vitals: Period Temp Pulse Resp BP Sys/Jerez Pulse Ox Last 24 Hr 97.8 F-98.9 F 60-91 10-24 102-180/44-049 92-100 Exam: General appearance: Pleasant and cooperative. Overweight, no acute distress. Head exam: Present: normal inspection, normocephalic, atraumatic. Absent: hematoma, laceration Eye exam: Present: EOMI. Absent: conjunctival injection, nystagmus, periorbital swelling, scleral icterus, laceration to eyelids Pupils: Present: PERRL. Absent: constricted, dilated, fixed, irregular, unequal ENT exam: Present: normal exam, normal external ear exam Neck exam: Present: normal inspection. Absent: lymphadenopathy, meningismus, tenderness, thyromegaly Respiratory exam: Present: clear to auscultation bilaterally. Absent: accessory muscle use, chest wall tenderness, rales, rhonchi, wheezing. Cardiovascular exam: Present: regular rate and rhythm. Absent: gallop, JVD, rubs GI/Abdominal exam: Present: normal bowel sounds, soft. Absent: distended, firm , guarding, hernia, mass, tenderness, rebound. Extremities exam: Present: normal inspection, normal capillary refill. Upper extremity pulses 2+. Lower extremity pulses 2+. Absent: calf tenderness, edema Musculoskeletal: Present: No Fluid Collection, No Pain, Normal Range of Motion Neurological exam: Present: alert, oriented X3, grossly intact without resting or essential tremor Psychiatric exam: Present: normal affect, normal mood Skin exam: Present: normal color, warm, dry, intact. Absent: cyanosis, diaphoretic, rash, urticaria Result/EKG - Labs CBC & BMP: 03/01/17 06:07 03/01/17 06:07 Lab Results: I have reviewed the past 24 hour labs Labs: Laboratory Results - last 24 hr 02/28/17 03/01/17 03/01/17 10:25 06:07 06:07 WBC 3.5 L D RBC 3.05 L Hgb 9.3 L 9.8 L Hct 27.8 L 30.2 L MCV 99.0 MCH 32 MCHC 32.5 RDW 13.5 Plt Count 111 L MPV 12.2 H Neut % (Auto) 75.1 H Lymph % (Auto) 8.6 L Tyler % (Auto) 11.7 Eos % (Auto) 3.7 Baso % (Auto) 0.3 Neut # (Auto) 2.6 Lymph # (Auto) 0.3 L Tyler # (Auto) 0.4 Eos # (Auto) 0.1 Baso # (Auto) 0.0 Immature Gran % 0.6 Nucleated RBC % 0.0 Immature Gran # 0.02 Nucleated RBCs # 0.00 Immature Plt Fraction 0.0 Sodium 137 Potassium 3.7 Chloride 104 Carbon Dioxide 26 Anion Gap 10.7 BUN 7 Creatinine 0.50 L GFR Calculation 90 BUN/Creatinine Ratio 14.00 Glucose 87 Calculated Osmolality 269.8 L Calcium 8.3 L Magnesium 2.0 - EKG EKG results: interpreted by me, sinus rhythm Quality Measures - VTE Contraindication to Pharmacological VTE Prophylaxis: High Risk of Bleeding
[2017-03-01] MEDS: PANTOPRAZOLE 40 MG VIAL IV SCH (08:35)
[2017-03-01] MEDS: LOSARTAN 25 MG TABLET PO SCH (08:35)
[2017-03-01] MEDS: ISOSORBIDE MONONITRATE 60 MG TABLET PO SCH (08:36)
[2017-03-01] MEDS: MULTIVITAMIN (CENTRUM) TABLET PO SCH (08:36)
[2017-03-01] MEDS: FERROUS SULFATE 325 MG TABLET PO SCH (08:36)
[2017-03-01] MEDS: METOPROLOL TARTRATE 25 MG TABLET PO SCH ×2 (08:37→20:46)
[2017-03-01] MEDS: ASPIRIN EC 81 MG TABLET PO SCH (08:37)
[2017-03-01] MEDS: BUDESONIDE/FORMOTEROL 160-4.5 INHALER 6 GM INH SCH (08:37)
--- NOTE | 2017-03-01 10:53 | Hospitalist Progress Note ---
Hospitalist: Subjective Interval history: Patient was admitted with upper GI bleed she is status post EGD and currently on soft diet. She reports no further bleeding. Exam - Constitutional Vitals: Period Temp Pulse Resp BP Sys/Jerez Pulse Ox Last 24 Hr 97.8 F-98.9 F 60-91 10-24 119-180/44-90 92-100 Exam: General: No Acute Distress HEENT: Normocephalic, atraumatic, Extra ocular movements intact Neck: Supple, No JVD Chest: Clear to auscultation B/L CV: S1 + S2 audible without murmur, gallop or rub Abd: soft, NT, Non-distended, BS + Ext: No edema Skin: No purpura, bruising or rash Rheumatologic: No Joint deformities Neurologic: Strength 5/5 all extremities, no gross sensory deficits Results - Labs CBC & BMP: 03/01/17 06:07 03/01/17 06:07 - Impressions Assessment and Plan (1) Acute upper GI bleed/Melena with anemia of acute GI blood loss Status: Acute Assessment and plan: Secondary to Dieulafoy lesion. Status post endo-clipping 2. GI recommends off aspirin and Plavix for a week. Current Visit: Yes (2) Coronary artery disease with drug-eluting stent Status: Chronic Assessment and plan: On aspirin and Plavix for CAD with a recent stent November 2016. Plavix is on hold and she is on aspirin currently. We will resume Plavix once okay with GI and cardiology. Current Visit: Yes (3) Syncope Status: Acute Assessment and plan: Secondary to acute blood loss secondary to upper gastrointestinal bleeding. Current Visit: Yes She is tolerating diet, vitals and hematocrit has been stable. She is tolerating diet, we will transfer to the floor. Quality Measures - VTE Contraindication to Pharmacological VTE Prophylaxis: High Risk of Bleeding
[2017-03-01] MEDS ORDERED: NITROGLYCERIN SL 0.4 MG TABLET SL PRN (15:16)
--- NOTE | 2017-03-01 19:26 | Pathology Report from [facility] ---
[facility] ACCESSION # : [id number] PATIENT NAME : Nat Wesley ORDERING DR : Alfonzo Cueva MD CLINICAL HX: Melena - Anemia POST-OP DX: Gastritis SPECIMEN INFO: WILLIAM GROSS DESCRIPTION: The specimen is received in formalin labeled with the patients name and consists of two ortega tissue fragments measuring 0.4 x 0.4 cm collectively. Submitted in one cassette. DIAGNOSIS FOR NAT WESLEY: WILLIAM BIOPSIES: Chronic gastritis with regenerative mucosal changes. H. pylori not seen on H&E and special stain with appropriate control. COLLECTED DATE: 02/28/2017 [facility] REPORT DATE: 03/01/2017 ELECTRONICALLY SIGNED BY: Caesar Clark M.D. 03/01/2017 - 9:53:15 [facility] SYSTEMRanch[facility]
--- NOTE | 2017-03-01 20:23 | Gastrointestinal Progress Note ---
Assessment and Plan (1) Acute upper GI bleeding Status: Acute Assessment and plan: This patient is taking aspirin and Plavix and as a result may have bleeding from variety of different potential causes including: Esophagitis, gastritis, duodenitis, peptic ulcer disease, gastric cancer, esophageal cancer, AVMs and Dieulafoy's lesion. We should be able to discern the cause based on endoscopy tomorrow provided the field is clean of residual blood. She is given Protonix twice daily and this is likely adequate to cover her by IV. She is a long-term epigastric tenderness and this may represent gastritis versus ulcer versus Helicobacter pylori infection. Upper endoscopy will take place tomorrow hopefully sometime between 7 and 9 AM. Further recommendations post evaluation. Patient was advised that there are risks involved with upper endoscopy which include but are not limited to: Bleeding, infection, perforation , cardiac and pulmonary compromise. The history was taken in the presence of Laura the patient's daughter who is in agreement with the plan. 02/28/17--EGD done today, bleeding seen in the fundus thought secondary to a Dieulafoy's lesion. This was endoclipped. No other bleeding seen in the stomach, this was thought to be a source of the bleed. Would suggest leaving off of aspirin/Plavix for 1 week if this is safe from a Cardiologic standpoint. 03/01/17--Nat was transferred upstairs to room 433 to be observed with continued hematocrit and hemoglobins. For the present time she remains stable on aspirin each day but holding the Plavix for a week. In the short-term I am going to stop the patient's iron so that we can see if her stool turns from black to brown after the melena has passed. I am going to use some MiraLAX to help speed this process and the patient understands that she will be starting this tonight. She is continued to get Protonix twice daily and we can switch this over to p.o. From a GI standpoint she can certainly be discharged over the weekend when Cardiology feels she is ready. She is tolerating a soft diet at this time. Current Visit: Yes (2) Acute posthemorrhagic anemia Status: Acute Assessment and plan: Patient's hematocrit at this time is 35% I suspect this will drop down quite significantly over the next 24-48 hours. We will continue to monitor and support the patient as needed. If hematocrit drops below 24% will write transfusion parameters/Lasix supplementation for units given. 02/28/17--as noted above. 03/01/17--The patient's hematocrit is stable, currently at 30%. Current Visit: Yes (3) Personal history of colonic polyps Status: Acute Assessment and plan: The patient has had colon polyps removed approximately 3 years ago over at [place] by 1 of their dining room host. Attempt to obtain old records to see when her next colonoscopy will be required. It is presumed that she had a bleed at that time due to diverticulosis but this is speculation mostly on my part based on her foggy history of the event. Await full review of records. 02/28/17--still awaiting old records from [place]. 03/01/17--the patient's records were sent over from [facility] apparently her last colonoscopy was done for lower GI bleeding and this was done on 10/21/13. This was noted to be completely normal, no bleeding source was seen at that time. A diminutive polyp was noted in the ascending colon but was not removed because of ongoing Plavix therapy. She is likely safe to wait for another 5 years before next colonoscopy-- i.e., in October 2018. Current Visit: Yes (4) GERD (gastroesophageal reflux disease) Status: Acute Assessment and plan: The patient is taking pantoprazole on a daily basis and does not remember that she has much a problem with this condition. 03/01/17--continue Protonix. Current Visit: Yes Gastroenterology - PN: Subj Interval history: The patient's hematocrit is maintaining stability on the aspirin each day and off of the Plavix. She has not had any acute chest pain. She is going to remain off of the Plavix for a full week to allow the Dieulafoy's lesion to heal. In the interim she is being observed. She has not had any bowel movements today and I am rather keen on getting the started and getting them back to the point where they are brown so I can tell if she has any continued bleeding down the road. Exam (Progress Note) - Constitutional Vitals: Period Temp Pulse Resp BP Sys/Jerez Pulse Ox Last 24 Hr 97.7 F-98.8 F 60-91 10-23 106-180/44-90 92-100 General appearance: no acute distress - Head Head exam: Present: normocephalic - Eye Eye exam: Present: EOMI Pupils: Present: AT - Respiratory Respiratory exam: Present: clear to auscultation bilaterally - Cardiovascular Cardiovascular exam: Present: regular rate and rhythm - GI/Abdominal GI/Abdominal exam: Present: normal bowel sounds, soft. Absent: distended, tenderness, rebound - Extremities Exam Extremities exam: Present: edema (Trace) - Neurological Exam Neurological exam: Present: alert, oriented X3, CN II-XII intact. Absent: motor sensory deficit - Psychiatric Psychiatric exam: Present: normal affect, normal mood - Skin Skin exam: Present: warm Results - Labs CBC & BMP: 03/01/17 06:07 03/01/17 06:07
[2017-03-01] MEDS: POLYETHYLENE GLYCOL POWDER 17 GM PACK PO SCH (20:45)
[2017-03-01] MEDS: PRAVASTATIN 20 MG TABLET PO SCH (20:45)
[2017-03-01] MEDS: ZALEPLON 5 MG CAPSULE PO PRN (22:16)
[2017-03-02 03:08] LABS: Basophils % 0.2 % (0.0-0.8); Eosinophils # 0.2 10*3/uL (0.0-0.87); Eosinophils % 3.4 % (0.00-10.9); Hematocrit 27.4 VOL% (35.7-47.0); Hemoglobin 9.3 GM/DL (12.0-16.0); Immature Granulocytes % 0.2 %; Immature Granulocytes Absolute 0.01 #; Lymphocytes # 0.4 10*3/uL (1.4-4.0); Lymphocytes % 8.6 % (21.3-54.2); Mean Corpuscular HGB Conc 33.9 GM/DL (32-36); Mean Corpuscular Hemoglobin 33 PG (27-34); Mean Corpuscular Volume 97.2 FL (87-102); Mean Platelet Volume 12.8 FL (9.6-12.0); Monocytes # 0.6 10*3/uL (0.11-0.8); Monocytes % 11.2 % (1.7-12.7); Neutrophils # 3.8 10*3/uL (1.4-7.4); Neutrophils % 76.4 % (38.7-73.9); Platelet Count 117 T/CUMM (130-400); Red Blood Count 2.82 MC/CUMM (3.8-5.5); Red Cell Distribution Width 13.3 % (9.3-17.3)
[2017-03-02 03:39] LABS: Magnesium 1.9 MG/DL (1.8-2.4); Osmolality,Calculated 268.1 MOS/KG (273-304); Potassium 3.6 MMOL/L (3.5-5.1)
[2017-03-02] MEDS: PANTOPRAZOLE 40 MG TABLET PO SCH ×2 (06:51→18:09)
[2017-03-02] MEDS: LEVOTHYROXINE 75 MCG TABLET PO SCH (06:51)
[2017-03-02] MEDS: IPRATROPIUM 500 MCG/2.5 ML NEB RESP TX SCH (07:55)
[2017-03-02] MEDS ORDERED: hydrALAZINE 20 MG/1 ML VIAL IV ONE (08:12)
[2017-03-02] MEDS: POLYETHYLENE GLYCOL POWDER 17 GM PACK PO SCH ×2 (08:31→20:07)
[2017-03-02] MEDS: LOSARTAN 25 MG TABLET PO SCH (08:31)
[2017-03-02] MEDS: ISOSORBIDE MONONITRATE 60 MG TABLET PO SCH (08:31)
[2017-03-02] MEDS: METOPROLOL TARTRATE 25 MG TABLET PO SCH ×2 (08:31→20:06)
[2017-03-02] MEDS: ASPIRIN EC 81 MG TABLET PO SCH (08:31)
[2017-03-02] MEDS ORDERED: BISACODYL 5 MG TABLET PO PRN (08:54)
[2017-03-02] MEDS: MONTELUKAST 10 MG TABLET PO SCH (09:21)
[2017-03-02] MEDS: methylPREDNISolone SOD SUC 40 MG/1 ML VIAL IV SCH ×2 (09:21→17:10)
--- NOTE | 2017-03-02 11:24 | XRay Report ---
XR chest 1V portable Indication: Wheezing. Chest one view: Comparison 02/27/2017. Borderline cardiomegaly, pacemaker device, calcified tortuosity thoracic aorta, diffusely coarsened interstitial markings of the lungs and hazy bibasilar atelectasis or pneumonia is stable. No new infiltrates are shown. Impression: No change. PROCEDURE INTERPRETED AT [facility] DEPARTMENT OF RADIOLOGY Final Report Signed by: Kiel Baig M.D.
[2017-03-02] MEDS: ALBUTEROL/IPRATROPIUM 3 ML NEB RESP TX SCH ×3 (11:56→19:38)
--- NOTE | 2017-03-02 14:56 | Cardiology Progress Note ---
Assessment and Plan - Time spent with patient Time spent with patient: Greater than 30 minutes (1) Acute upper GI bleed Status: Acute Assessment and plan: No evidence of further upper or lower GI bleed Tolerating the low-dose aspirin so far To restart the Plavix/Brilinta on Saturday-- Okay with me for discharge when you say so The patient will follow with Dr. Kelly as is scheduled or sooner if needed Current Visit: Yes (2) GERD (gastroesophageal reflux disease) Status: Acute Current Visit: Yes (3) Personal history of colonic polyps Status: Acute Current Visit: Yes (4) COPD (chronic obstructive pulmonary disease) Status: Chronic Current Visit: Yes (5) Coronary artery disease Status: Chronic Current Visit: Yes (6) Hyperlipidemia Status: Chronic Current Visit: Yes (7) Status post coronary artery stent placement Status: Chronic Current Visit: Yes (8) CAD (coronary artery disease) Status: Chronic Current Visit: No Qualifiers: (9) Hypertension Status: Chronic Current Visit: No Qualifiers: Hypertension type: essential hypertension Qualified Code(s): I10 - Essential (primary) hypertension (10) Status post placement of cardiac pacemaker Status: Chronic Current Visit: No Cardiology - PN: Subj Interval history: No chest pain, shortness breath, or coughing up blood/spitting up blood Exam (Progress Note) - Constitutional Vitals: Period Temp Pulse Resp BP Sys/Jerez Pulse Ox Last 24 Hr 98.4 F-100.2 F 60-75 18-22 159-192/70-83 93-99 Exam: HEENT: Pupils equal, reactive to light and accommodation Neck: NoJVD or bruit Lungs clear to auscultation Heart: Regular rhythm rate with normal S1 and S2. Apical S4 Abdomen: No hepatosplenomegaly Spine/extremities: No clubbing, cyanosis, or edema Neuro: Nonfocal Psych: No depression or anxiety Result/EKG - Labs CBC & BMP: 03/02/17 02:17 03/02/17 02:17 Labs: Laboratory Results - last 24 hr 03/02/17 03/02/17 02:17 02:17 WBC 5.0 D RBC 2.82 L Hgb 9.3 L Hct 27.4 L MCV 97.2 MCH 33 MCHC 33.9 RDW 13.3 Plt Count 117 L MPV 12.8 H Neut % (Auto) 76.4 H Lymph % (Auto) 8.6 L Kaufman % (Auto) 11.2 Eos % (Auto) 3.4 Baso % (Auto) 0.2 Neut # (Auto) 3.8 Lymph # (Auto) 0.4 L Kaufman # (Auto) 0.6 Eos # (Auto) 0.2 Baso # (Auto) 0.0 Immature Gran % 0.2 Nucleated RBC % 0.0 Immature Gran # 0.01 Nucleated RBCs # 0.00 Immature Plt Fraction 0.0 Sodium 135 L Potassium 3.6 Chloride 98 Carbon Dioxide 30 Anion Gap 10.6 BUN 9 Creatinine 0.50 L GFR Calculation 90 BUN/Creatinine Ratio 18.00 Glucose 100 Calculated Osmolality 268.1 L Calcium 8.0 L Magnesium 1.9 Quality Measures - VTE Contraindication to Pharmacological VTE Prophylaxis: High Risk of Bleeding Specialty Discharge - Follow Up or Referrals Follow up with: Katelyn Evans DO [Physician] - (As is scheduled or sooner if needed. If the patient has no appointment, she can be seen by Dr. Kelly within the next 6-8 weeks)
[2017-03-02] MEDS ORDERED: SODIUM PHOSPHATE ENEMA 133 ML BOTTLE RECTAL ONE (15:12)
--- NOTE | 2017-03-02 15:15 | Hospitalist Progress Note ---
Assessment and Plan (1) Acute upper GI bleeding Status: Acute Assessment and plan: Due to Dieulafoys lesion which was clipped. Hold plavix for one week, hgb stable today Current Visit: Yes (2) COPD exacerbation Status: Acute Assessment and plan: Lasix 20 mg IV daily, Solu-Medrol, duo nebs, no antibiotics for now Current Visit: Yes (3) Hypertension Status: Chronic Assessment and plan: Continue metoprolol 25 mg p.o. twice daily, increase losartan to 50 mg daily, continue isosorbide mononitrate Current Visit: No Qualifiers: Hypertension type: essential hypertension Qualified Code(s): I10 - Essential (primary) hypertension (4) Acute posthemorrhagic anemia Status: Acute Assessment and plan: Hemoglobin stable Current Visit: Yes (5) GERD (gastroesophageal reflux disease) Status: Acute Assessment and plan: Continue Protonix 40 mg p.o. twice daily Current Visit: Yes (6) Status post coronary artery stent placement Status: Chronic Assessment and plan: Hold off Plavix Current Visit: Yes (7) Hyperlipidemia Status: Chronic Assessment and plan: Continue pravastatin Current Visit: Yes (8) Constipation Status: Acute Assessment and plan: Dulcolax, MiraLAX, fleets Current Visit: Yes Hospitalist: Subjective Interval history: Patient very constipated today and would like something for a laxative. She is already on MiraLAX. I will try Dulcolax and fleets enema. We would like to guaiac her stool or see the color of it. Hemoglobin has remained stable. She is wheezing really bad today. Chest x-ray reveals some interstitial changes. May be slightly volume overloaded. We will give her duo nebs and steroids to help with her breathing Exam - Constitutional Vitals: Period Temp Pulse Resp BP Sys/Jerez Pulse Ox Last 24 Hr 98.4 F-100.2 F 60-75 18-22 165-192/72-83 93-99 Exam: Heart Rate-[RRR] Lungs-[tight and wheezy] GI-[+bs soft, NT] Ext-[no edema] Neuro [Motor 5/5], [alert and oriented times 3] psych [normal mood and affect] General [no acute distress] Results - Labs CBC & BMP: 03/02/17 02:17 03/02/17 02:17 Lab Results: I have reviewed the past 24 hour labs - Diagnostic Findings Procedure: Chest x-ray: report reviewed by me (Coarsened interstitial changes and bibasilar atelectasis versus pneumonia) Quality Measures - VTE Contraindication to Pharmacological VTE Prophylaxis: High Risk of Bleeding Specialty Discharge - Follow Up or Referrals Follow up with: Katelyn Evasn DO [Physician] - (As is scheduled or sooner if needed. If the patient has no appointment, she can be seen by Dr. Kelly within the next 6-8 weeks)
[2017-03-02] MEDS ORDERED: LOSARTAN 50 MG TABLET PO SCH (15:20)
[2017-03-02] MEDS: FUROSEMIDE 20 MG/2 ML VIAL IV SCH (15:55)
--- NOTE | 2017-03-02 18:18 | Gastrointestinal Progress Note ---
Assessment and Plan (1) Acute upper GI bleeding Status: Acute Assessment and plan: This patient is taking aspirin and Plavix and as a result may have bleeding from variety of different potential causes including: Esophagitis, gastritis, duodenitis, peptic ulcer disease, gastric cancer, esophageal cancer, AVMs and Dieulafoy's lesion. We should be able to discern the cause based on endoscopy tomorrow provided the field is clean of residual blood. She is given Protonix twice daily and this is likely adequate to cover her by IV. She is a long-term epigastric tenderness and this may represent gastritis versus ulcer versus Helicobacter pylori infection. Upper endoscopy will take place tomorrow hopefully sometime between 7 and 9 AM. Further recommendations post evaluation. Patient was advised that there are risks involved with upper endoscopy which include but are not limited to: Bleeding, infection, perforation , cardiac and pulmonary compromise. The history was taken in the presence of Laura the patient's daughter who is in agreement with the plan. 02/28/17--EGD done today, bleeding seen in the fundus thought secondary to a Dieulafoy's lesion. This was endoclipped. No other bleeding seen in the stomach, this was thought to be a source of the bleed. Would suggest leaving off of aspirin/Plavix for 1 week if this is safe from a Cardiologic standpoint. 03/01/17--Nat was transferred upstairs to room 433 to be observed with continued hematocrit and hemoglobins. For the present time she remains stable on aspirin each day but holding the Plavix for a week. In the short-term I am going to stop the patient's iron so that we can see if her stool turns from black to brown after the melena has passed. I am going to use some MiraLAX to help speed this process and the patient understands that she will be starting this tonight. She is continued to get Protonix twice daily and we can switch this over to p.o. From a GI standpoint she can certainly be discharged over the weekend when Cardiology feels she is ready. She is tolerating a soft diet at this time. 03/02/17--patient is doing well with stability of her hematocrit and hemoglobin currently at about 27% hematocrit. The plan was to hold the Plavix for a week. Stop the iron but despite this the patient has not had any further bowel movements. She can have some magnesium citrate if she needs it over the evening time on a as needed basis. She is tolerating about half of her soft diet. She can be discharged from my standpoint. If she is doing well tomorrow will sign off the case. Current Visit: Yes (2) Acute posthemorrhagic anemia Status: Acute Assessment and plan: Patient's hematocrit at this time is 35% I suspect this will drop down quite significantly over the next 24-48 hours. We will continue to monitor and support the patient as needed. If hematocrit drops below 24% will write transfusion parameters/Lasix supplementation for units given. 02/28/17--as noted above. 03/01/17--The patient's hematocrit is stable, currently at 30%. 03/02/17--Still doing fine currently with hematocrit that is stable at 27%. 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 Attempt to obtain old records to see when her next colonoscopy will be required. It is presumed that she had a bleed at that time due to diverticulosis but this is speculation mostly on my part based on her foggy history of the event. Await full review of records. 02/28/17--still awaiting old records from [facility]. 03/01/17--the patient's records were sent over from [facility] apparently her last colonoscopy was done for lower GI bleeding and this was done on 10/21/13. This was noted to be completely normal, no bleeding source was seen at that time. A diminutive polyp was noted in the ascending colon but was not removed because of ongoing Plavix therapy. She is likely safe to wait for another 5 years before next colonoscopy-- i.e., in October 2018. 03/02/17--As noted above. No risk for additional bleeding likely from the lower GI standpoint. The patient needs her next colonoscopy in October 2018 Current Visit: Yes (4) GERD (gastroesophageal reflux disease) Status: Acute Assessment and plan: The patient is taking pantoprazole on a daily basis and does not remember that she has much a problem with this condition. 03/01/17--Continue Protonix. 03/02/17--As above. Current Visit: Yes Gastroenterology - PN: Subj Interval history: The patient still has not had any bowel movements yet despite being given an enema this morning and Dulcolax as well. She does not want to have a magnesium citrate bottle, we are still awaiting passage of any further bowel movements. She is eating about half of her tray and some snacks that well-wisher have brought her. She is concerned about her systolic blood pressure which is inched up to the 170-190 range. Exam (Progress Note) - Constitutional Vitals: Period Temp Pulse Resp BP Sys/Jerez Pulse Ox Last 24 Hr 98.4 F-100.2 F 60-79 18-22 165-192/72-83 92-99 General appearance: mild distress - Head Head exam: Present: normocephalic, atraumatic - Eye Eye exam: Present: EOMI - Respiratory Respiratory exam: Present: clear to auscultation bilaterally. Absent: rales, rhonchi, wheezes - Cardiovascular Cardiovascular exam: Present: regular rate and rhythm - GI/Abdominal GI/Abdominal exam: Present: normal bowel sounds, distended, tenderness (In the epigastric and left upper quadrant regions), soft - Neurological Exam Neurological exam: Present: alert, oriented X3, CN II-XII intact. Absent: motor sensory deficit - Psychiatric Psychiatric exam: Present: normal affect, normal mood - Skin Skin exam: Present: warm Results - Labs CBC & BMP: 03/02/17 02:17 03/02/17 02:17 Specialty Discharge - Follow Up or Referrals Follow up with: Katelyn Evans DO [Physician] - (As is scheduled or sooner if needed. If the patient has no appointment, she can be seen by Dr. Kelly within the next 6-8 weeks)
[2017-03-02] MEDS ORDERED: MAGNESIUM CITRATE 300 ML BOTTLE PO PRN (18:20)
[2017-03-02] MEDS: PRAVASTATIN 20 MG TABLET PO SCH (20:06)
[2017-03-03] MEDS: ALBUTEROL/IPRATROPIUM 3 ML NEB RESP TX SCH ×3 (00:08→07:17)
[2017-03-03] MEDS: methylPREDNISolone SOD SUC 40 MG/1 ML VIAL IV SCH ×2 (00:23→08:51)
[2017-03-03] MEDS: ZALEPLON 5 MG CAPSULE PO PRN (01:55)
[2017-03-03 05:41] LABS: Hematocrit 27.7 VOL% (35.7-47.0); Hemoglobin 9.6 GM/DL (12.0-16.0); Immature Granulocytes % 0.5 %; Immature Granulocytes Absolute 0.02 #; Lymphocytes # 0.3 10*3/uL (1.4-4.0); Lymphocytes % 6.3 % (21.3-54.2); Mean Corpuscular HGB Conc 34.7 GM/DL (32-36); Mean Corpuscular Hemoglobin 33 PG (27-34); Mean Corpuscular Volume 94.2 FL (87-102); Monocytes # 0.1 10*3/uL (0.11-0.8); Monocytes % 2.3 % (1.7-12.7); Neutrophils # 3.6 10*3/uL (1.4-7.4); Neutrophils % 90.9 % (38.7-73.9); Platelet Count 133 T/CUMM (130-400); Red Blood Count 2.94 MC/CUMM (3.8-5.5); Red Cell Distribution Width 12.9 % (9.3-17.3)
[2017-03-03 06:10] LABS: Calcium 8.3 MG/DL (8.5-10.1); Magnesium 1.9 MG/DL (1.8-2.4); Osmolality,Calculated 268.2 MOS/KG (273-304); Potassium 3.2 MMOL/L (3.5-5.1)
[2017-03-03 06:16] LABS: Band Neutrophils 5 % (0-10); Hypochromasia 1+; Lymphocytes 11 % (20-55); Segmented Neutrophils 81 % (50-85); Total Cells Counted 100
[2017-03-03 06:17] LABS: Microcytosis Slight; Platelet Estimate Adequate
[2017-03-03] MEDS: LEVOTHYROXINE 75 MCG TABLET PO SCH ×2 (06:24→06:55)
[2017-03-03] MEDS: PANTOPRAZOLE 40 MG TABLET PO SCH (06:24)
[2017-03-03] MEDS: ASPIRIN EC 81 MG TABLET PO SCH (08:49)
[2017-03-03] MEDS: MONTELUKAST 10 MG TABLET PO SCH (08:49)
[2017-03-03] MEDS: ISOSORBIDE MONONITRATE 60 MG TABLET PO SCH (08:49)
[2017-03-03] MEDS: METOPROLOL TARTRATE 25 MG TABLET PO SCH (08:49)
[2017-03-03] MEDS: POLYETHYLENE GLYCOL POWDER 17 GM PACK PO SCH (08:50)
[2017-03-03] MEDS: FUROSEMIDE 20 MG/2 ML VIAL IV SCH (08:56)
[2017-03-03] MEDS ORDERED: SODIUM PHOSPHATE ENEMA 133 ML BOTTLE RECTAL ONE ×2 (09:18→10:00)
[2017-03-03] MEDS ORDERED: MAGNESIUM CITRATE 300 ML BOTTLE PO ONE (09:59)
--- NOTE | 2017-03-03 10:27 | Discharge Summary ---
Hospital Course - Hospital Course Hospital Course: Ms. Wesley is a 81 year old female present to ER after syncope times two and passing melena. Her hemoglobin on admission was 9.6. Dr. Cueva was consulted and she was placed in the ICU. Patient was currently on aspirin and Plavix due to a recent cardiac stent placed in the left circumflex by Dr. Evans in November 2016. Patient's hemoglobin stabilized at 9.6 and no blood was transfused. 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 She also had mild gastritis. He wanted to leave her off her Plavix for 1 week and may restart it on 03/07/17. She is to continue antireflux measures including elevating the head of her bed, not eating 2 hours before going to bed and continuing her Protonix once a day. Patient developed some difficulty breathing yesterday and had a mild COPD exacerbation which was easily resolved with duo nebs and steroids. She wishes to go home today but she has not had a bowel movement since Saturday. She said she is chronically constipated and usually has to take MiraLAX every day which she has been taking but it has not been working. We have given her some mag citrate and even if she is unable to have a bowel movement today we will check her for an impaction if she has not impacted will still let her go home today. She is chronically on oxygen at home. Her blood pressure is stable. She was mildly volume overloaded which resolved with Lasix. Her potassium was slightly low but replaced. Patient will follow up with Dr. Evans and Dr. Cueva and her primary care doctor. We are initiating home health. She does not want a nebulizer machine for home for her COPD she rather continue to use her oral inhalers. - Time spent with patient Time with patient DS: Greater than 30 minutes Diagnosis - Discharge Diagnosis (1) Acute upper GI bleeding Status: Acute (2) COPD exacerbation Status: Acute (3) Hypertension Status: Chronic (4) Acute posthemorrhagic anemia Status: Acute (5) GERD (gastroesophageal reflux disease) Status: Acute (6) Status post coronary artery stent placement Status: Chronic (7) Hyperlipidemia Status: Chronic (8) Constipation Status: Acute Specialty Discharge - Follow Up or Referrals Follow up with: Katelyn Evans, [Physician] - (As is scheduled or sooner if needed. If the patient has no appointment, she can be seen by Dr. Kelly within the next 6-8 weeks) Discharge Plan - Discharge Data Disposition: Home Health Service Condition at Discharge: Stable Discharge Diet: heart healthy Activity: resume usual activities as tolerated, wear oxygen at all times Hygiene: no restrictions Weight Bearing at Discharge: full weight bearing - Discharge Medications New Losartan [Cozaar] 50 mg PO QAM #30 tablet Magnesium Citrate [Citrate of Magnesia] 300 ml PO DAILY PRN #1 bottle PRN Reason: severe constipation methylPREDNISolone DOSEPAK [Medrol Dosepak] 4 mg PO DIRECTED #1 pack Polyethylene Glycol Powder [Miralax] 17 gm PO BID Montelukast Tab [Singulair Tab] 10 mg PO DAILY #30 tablet Pantoprazole Tab [Protonix Tab] 40 mg PO DAILY #30 tablet Continue Aclidinium [place] [Tudorza Pressair] 400 mcg INH BID Nitroglycerin [Nitroglycerin SL Tab] 0.4 mg SL Q5M PRN PRN Reason: Chest Pain Budesonide/Formoterol Fumarate [Symbicort 160-4.5 Mcg Inhaler] 2 puffs INH BID Isosorbide Mononitrate [Isosorbide Mononitrate ER] 60 mg PO QAM Vit C/Vit E AC/Lut/Copper/Zinc [Preservision Lutein Softgel] 1 each PO QAM Metoprolol Tartrate Tab [Lopressor Tab] 25 mg PO BID #60 tablet Pravastatin [Pravachol] 40 mg PO BEDTIME Levothyroxine Tab [Synthroid Tab] 75 mcg PO QAM Aspirin [Ecotrin] 81 mg PO QAM Discontinued Clopidogrel [Plavix] 75 mg PO QAM Pantoprazole Tab [Protonix Tab] 40 mg PO QAM Ferrous Sulfate [Ferrous Sulfate Cap] 325 mg PO BID Labetalol HCl [Labetalol HCl] 100 mg PO QAM Losartan Potassium [Losartan Potassium] 25 mg PO QAM - Follow Up or Referral Follow Up: Katelyn Evans DO [Physician] - (As is scheduled or sooner if needed. If the patient has no appointment, she can be seen by Dr. Kelly within the next 6-8 weeks) Alfonzo Cueva MD [Physician] - 2 Weeks pmdr malcolm [Other] - Forms/Instructions Additional Discharge Instructions: restart plavix on 03/07/17, Dont eat 6 hours before going to bed, elevate the head of her bed 6 inches. Sorry about multiple corrections, cont protonix 40 mg once a day Exam - Constitutional Vitals: Period Temp Pulse Resp BP Sys/Jerez Pulse Ox Last 24 Hr 97.0 F-98.5 F 62-80 17-20 153-183/70-81 92-99 General appearance: normal weight, no acute distress - Respiratory Respiratory exam: Present: clear to auscultation bilaterally. Absent: rhonchi, wheezes - Cardiovascular Cardiovascular exam: Present: regular rate and rhythm. Absent: systolic murmur - GI/Abdominal GI/Abdominal exam: Present: normal bowel sounds, soft. Absent: tenderness - Extremities Exam Extremities exam: Present: normal inspection, normal capillary refill - Neurological Exam Neurological exam: Present: alert, oriented X3 - Psychiatric Psychiatric exam: Present: normal affect, normal mood Discharge Results Procedures and tests throughout hospitalization: Pending Orders 03/04/17 04:00 BMP w/ Mg [Basic Metabolic Panel w/Mg] IN AM CBC [Comp Blood Count Auto Diff] IN AM Labs on day of discharge: Labs from last 24 hours 03/03/17 03/03/17 03/02/17 04:45 04:45 15:38 WBC 4.0 RBC 2.94 L Hgb 9.6 L Hct 27.7 L MCV 94.2 MCH 33 MCHC 34.7 RDW 12.9 Plt Count 133 MPV 13.0 H Neut % (Auto) 90.9 H Lymph % (Auto) 6.3 L [place] % (Auto) 2.3 Eos % (Auto) 0.0 Baso % (Auto) 0.0 Neut # (Auto) 3.6 Lymph # (Auto) 0.3 L [place] # (Auto) 0.1 L Eos # (Auto) 0.0 Baso # (Auto) 0.0 Total Counted 100 Immature Gran % 0.5 Nucleated RBC % 0.0 Immature Gran # 0.02 Segmented Neutrophils 81 Band Neutrophils 5 Lymphocytes 11 L Monocytes 3 Nucleated RBCs # 0.00 Platelet Estimate Adequate Immature Plt Fraction 0.0 Hypochromasia 1+ Microcytosis Slight Morphology Comment Sodium 134 L Potassium 3.2 L Chloride 94 L Carbon Dioxide 34 H Anion Gap 9.2 BUN 10 Creatinine 0.50 L GFR Calculation 91 BUN/Creatinine Ratio 20.00 Glucose 136 H Calculated Osmolality 268.2 L Calcium 8.3 L Magnesium 1.9 B-Natriuretic Peptide 459 H DS: Provider Date of admission: 02/27/17 16:34 Primary care physician: . No PCP Attending physician on admission: Lashay Castellanos MD Consults: 02/27/17 17:07 Consult to Physician [CONS] Routine Comment: Recent stent placement, DAPT Consulting Provider: Cardiology - [facility] 02/27/17 17:09 Consult to Physician [CONS] Routine Comment: Upper GIB Consulting Provider: Alfonzo Cueva Consult to Specialist Group: Gastroenterology Discharging clinician: Judit Caldera MD
[2017-03-03] MEDS ORDERED: POTASSIUM CHLORIDE 20 MEQ TABLET PO SCH (10:30)
[2017-03-03] MEDS ORDERED: POTASSIUM CHLORIDE 20 MEQ TABLET PO ONE (12:00)
[2017-03-03 12:27] VITALS: BP 165/76
--- NOTE | 2017-03-03 13:08 | Gastrointestinal Progress Note ---
Assessment and Plan (1) Acute upper GI bleeding Status: Acute Assessment and plan: This patient is taking aspirin and Plavix and as a result may have bleeding from variety of different potential causes including: Esophagitis, gastritis, duodenitis, peptic ulcer disease, gastric cancer, esophageal cancer, AVMs and Dieulafoy's lesion. We should be able to discern the cause based on endoscopy tomorrow provided the field is clean of residual blood. She is given Protonix twice daily and this is likely adequate to cover her by IV. She is a long-term epigastric tenderness and this may represent gastritis versus ulcer versus Helicobacter pylori infection. Upper endoscopy will take place tomorrow hopefully sometime between 7 and 9 AM. Further recommendations post evaluation. Patient was advised that there are risks involved with upper endoscopy which include but are not limited to: Bleeding, infection, perforation , cardiac and pulmonary compromise. The history was taken in the presence of Laura the patient's daughter who is in agreement with the plan. 02/28/17--EGD done today, bleeding seen in the fundus thought secondary to a Dieulafoy's lesion. This was endoclipped. No other bleeding seen in the stomach, this was thought to be a source of the bleed. Would suggest leaving off of aspirin/Plavix for 1 week if this is safe from a Cardiologic standpoint. 03/01/17--Nat was transferred upstairs to room 433 to be observed with continued hematocrit and hemoglobins. For the present time she remains stable on aspirin each day but holding the Plavix for a week. In the short-term I am going to stop the patient's iron so that we can see if her stool turns from black to brown after the melena has passed. I am going to use some MiraLAX to help speed this process and the patient understands that she will be starting this tonight. She is continued to get Protonix twice daily and we can switch this over to p.o. From a GI standpoint she can certainly be discharged over the weekend when Cardiology feels she is ready. She is tolerating a soft diet at this time. 03/02/17--patient is doing well with stability of her hematocrit and hemoglobin currently at about 27% hematocrit. The plan was to hold the Plavix for a week. Stop the iron but despite this the patient has not had any further bowel movements. She can have some magnesium citrate if she needs it over the evening time on a as needed basis. She is tolerating about half of her soft diet. She can be discharged from my standpoint. If she is doing well tomorrow will sign off the case. 03/03/17--The patient's hematocrit again remained stable. This patient really only needs to follow-up with me if needed for recurrent bleeding once she is started back on her Plavix/aspirin regimen. She is going to be on aspirin alone until next Saturday when she is going to add the Plavix back in and see cardiology in follow-up. As a courtesy I have changed her follow-up appointment from 2 weeks (I have no appointments in 2 weeks) to 6-8 weeks which would be a more appropriate follow-up to see if her hematocrit is drifting downward. If she has an acute bleed would be happy to see her back in the hospital in the interim. Her stools are now back to being brown and she is off of her iron for the present time and so we should be able to follow color change to see if she requires reevaluation more emergently. Again she is safe for discharge from my standpoint. Current Visit: Yes (2) Acute posthemorrhagic anemia Status: Acute Assessment and plan: Patient's hematocrit at this time is 35% I suspect this will drop down quite significantly over the next 24-48 hours. We will continue to monitor and support the patient as needed. If hematocrit drops below 24% will write transfusion parameters/Lasix supplementation for units given. 02/28/17--as noted above. 03/01/17--The patient's hematocrit is stable, currently at 30%. 03/02/17--Still doing fine currently with hematocrit that is stable at 27%. 03/03/17--stable for discharge again Current Visit: Yes (3) Personal history of colonic polyps Status: Acute Assessment and plan: The patient has had colon polyps removed approximately 3 years ago over at [place] by 1 of their drill doctor. Attempt to obtain old records to see when her next colonoscopy will be required. It is presumed that she had a bleed at that time due to diverticulosis but this is speculation mostly on my part based on her foggy history of the event. Await full review of records. 02/28/17--still awaiting old records from [place]. 03/01/17--the patient's records were sent over from [facility] apparently her last colonoscopy was done for lower GI bleeding and this was done on 10/21/13. This was noted to be completely normal, no bleeding source was seen at that time. A diminutive polyp was noted in the ascending colon but was not removed because of ongoing Plavix therapy. She is likely safe to wait for another 5 years before next colonoscopy-- i.e., in October 2018. 03/02/17--As noted above. No risk for additional bleeding likely from the lower GI standpoint. The patient needs her next colonoscopy in October 2018 03/03/17--Next colonoscopy October 2018 Current Visit: Yes (4) GERD (gastroesophageal reflux disease) Status: Acute Assessment and plan: The patient is taking pantoprazole on a daily basis and does not remember that she has much a problem with this condition. 03/01/17--Continue Protonix. 03/02/17--As above. 03/03/17--No change Current Visit: Yes Gastroenterology - PN: Subj Interval history: Patient is doing well status post use of magnesium citrate last night, patient still had not had a bowel movement yet this morning and required fleets enema which did indeed get her cleaned out. She is not having any black stools these have now become brown again and her hematocrit is stable at 27%. Exam (Progress Note) - Constitutional Vitals: Period Temp Pulse Resp BP Sys/Jerez Pulse Ox Last 24 Hr 97.0 F-98.5 F 61-80 17-20 153-183/70-81 92-99 General appearance: no acute distress - Head Head exam: Present: normocephalic - Eye Eye exam: Present: EOMI Pupils: Present: TA - Respiratory Respiratory exam: Present: clear to auscultation bilaterally. Absent: rhonchi, stridor, wheezes - Cardiovascular Cardiovascular exam: Present: regular rate and rhythm - GI/Abdominal GI/Abdominal exam: Present: normal bowel sounds, soft. Absent: tenderness, rebound - Neurological Exam Neurological exam: Present: alert, oriented X3 - Psychiatric Psychiatric exam: Present: normal affect, normal mood - Skin Skin exam: Present: warm Results - Labs CBC & BMP: 03/03/17 04:45 03/03/17 04:45 Specialty Discharge - Follow Up or Referrals Follow up with: [email or web address], [Other] Katelyn Evans DO [Physician] - (As is scheduled or sooner if needed. If the patient has no appointment, she can be seen by Dr. Kelly within the next 6-8 weeks) Alfonzo Cueva MD [Physician] - 2 Weeks
--- NOTE | 2017-03-03 21:21 | Cardiology Progress Note ---
Assessment and Plan (1) Acute upper GI bleed Status: Acute Assessment and plan: No evidence of further upper or lower GI bleed Tolerating the low-dose aspirin so far To restart the Plavix/Brilinta on Saturday-- Okay with me for discharge when you say so The patient will follow with Dr. Kelly as is scheduled or sooner if needed 03/03/17 Hematocrit stable, suggesting no active GI bleeding Suggest repleting the low potassium I discussed with the patient and she is to restart her clopidogrel or Brilinta on 03/04/17 . She'll continue the low-dose aspirin She'll follow with her form maker as is scheduled or sooner if needed Okay with me for discharge when you say so with follow-up. (2) GERD (gastroesophageal reflux disease) Status: Acute (3) Personal history of colonic polyps Status: Acute (4) COPD (chronic obstructive pulmonary disease) Status: Chronic (5) Coronary artery disease Status: Chronic (6) Hyperlipidemia Status: Chronic (7) Status post coronary artery stent placement Status: Chronic (8) CAD (coronary artery disease) Status: Chronic Qualifiers: (9) Hypertension Status: Chronic Qualifiers: Hypertension type: essential hypertension Qualified Code(s): I10 - Essential (primary) hypertension (10) Status post placement of cardiac pacemaker Status: Chronic Cardiology - PN: Subj Interval history: no chest pain or shortness breath. Has not had a bowel movement to see if there is any black stool. Exam (Progress Note) - Constitutional Vitals: Period Temp Pulse Resp BP Sys/Jerez Pulse Ox Last 24 Hr 97.0 F-97.6 F 61-80 17-20 153-183/70-80 93-99 Exam: HEENT: Pupils equal, reactive to light and accommodation Neck: NoJVD or bruit Lungs clear to auscultation Heart: Regular rhythm rate with normal S1 and S2. Apical S4 Abdomen: No hepatosplenomegaly Spine/extremities: No clubbing, cyanosis, or edema Neuro: Nonfocal Psych: No depression or anxiety Result/EKG - Labs CBC & BMP: 03/03/17 04:45 03/03/17 04:45 Labs: Laboratory Results - last 24 hr 03/03/17 03/03/17 04:45 04:45 WBC 4.0 RBC 2.94 L Hgb 9.6 L Hct 27.7 L MCV 94.2 MCH 33 MCHC 34.7 RDW 12.9 Plt Count 133 MPV 13.0 H Neut % (Auto) 90.9 H Lymph % (Auto) 6.3 L [place] % (Auto) 2.3 Eos % (Auto) 0.0 Baso % (Auto) 0.0 Neut # (Auto) 3.6 Lymph # (Auto) 0.3 L [place] # (Auto) 0.1 L Eos # (Auto) 0.0 Baso # (Auto) 0.0 Total Counted 100 Immature Gran % 0.5 Nucleated RBC % 0.0 Immature Gran # 0.02 Segmented Neutrophils 81 Band Neutrophils 5 Lymphocytes 11 L Monocytes 3 Nucleated RBCs # 0.00 Platelet Estimate Adequate Immature Plt Fraction 0.0 Hypochromasia 1+ Microcytosis Slight Morphology Comment Sodium 134 L Potassium 3.2 L Chloride 94 L Carbon Dioxide 34 H Anion Gap 9.2 BUN 10 Creatinine 0.50 L GFR Calculation 91 BUN/Creatinine Ratio 20.00 Glucose 136 H Calculated Osmolality 268.2 L Calcium 8.3 L Magnesium 1.9 Quality Measures - VTE Contraindication to Pharmacological VTE Prophylaxis: High Risk of Bleeding Specialty Discharge - Follow Up or Referrals Follow up with: ericka, [Other] Katelyn Evans DO [Physician] - (As is scheduled or sooner if needed. If the patient has no appointment, she can be seen by Dr. Kelly within the next 6-8 weeks) Alfonzo Cueva MD [Physician] - 2 Weeks
== END 2017-03-03 13:33 | disposition home health service (06) | DRG 378 ==
LOC: N.ED 14:57 → SUATTDRO 16:34 → N.EDINP 16:34 → N.CC 17:42 → N.4E 03-01 15:15
PROVIDERS: ADMIT Family Medicine; ATTEND Internal Medicine

== ENCOUNTER 2017-07-30 15:22 | Inpatient (IN) ==
[2017-07-30] MEDS ORDERED: ONDANSETRON 4 MG/2 ML VIAL IV STA (16:57)
[2017-07-30] MEDS ORDERED: ASPIRIN 325 MG TABLET PO STA (16:57)
[2017-07-30] MEDS ORDERED: NITROGLYCERIN 2% OINT 1 INCH/GM PACK TOP STA (16:57)
[2017-07-30] MEDS ORDERED: MORPHINE 2 MG/1 ML SYRINGE IV STA (16:57)
[2017-07-30 17:05] LABS: Basophils % 0.4 % (0.0-0.8); Eosinophils # 0.1 10*3/uL (0.0-0.87); Eosinophils % 0.9 % (0.00-10.9); Hematocrit 28.1 VOL% (35.7-47.0); Immature Granulocytes % 0.5 %; Immature Granulocytes Absolute 0.04 #; Lymphocytes # 0.6 10*3/uL (1.4-4.0); Lymphocytes % 7.3 % (21.3-54.2); Mean Corpuscular Hemoglobin 32 PG (27-34); Mean Corpuscular Volume 98.6 FL (87-102); Mean Platelet Volume 12.2 FL (9.6-12.0); Monocytes # 0.7 10*3/uL (0.11-0.8); Monocytes % 9.1 % (1.7-12.7); Neutrophils # 6.2 10*3/uL (1.4-7.4); Neutrophils % 81.8 % (38.7-73.9); Platelet Count 190 T/CUMM (130-400); Red Blood Count 2.85 MC/CUMM (3.8-5.5); Red Cell Distribution Width 15.9 % (9.3-17.3); White Blood Count 7.6 T/CUMM (4-12)
[2017-07-30 17:06] LABS: Alanine Aminotransferase 20 U/L (13-56); Albumin 3.7 G/DL (3.4-5.0); Alkaline Phosphatase 106 U/L (45-117); Aspartate Amino Transferase 22 U/L (0-37); Blood Urea Nitrogen 17 MG/DL (7-18); Calcium 8.8 MG/DL (8.5-10.1); Glucose 96 MG/DL (74-106); Osmolality,Calculated 259.9 MOS/KG (273-304); Potassium 4.6 MMOL/L (3.5-5.1); Sodium 129 MMOL/L (136-145); Total Protein 6.4 G/DL (6.4-8.3); Troponin I Only < 0.015 NG/ML (0.00-0.045)
[2017-07-30] MEDS ORDERED: NITROGLYCERIN 2% OINT 1 INCH/GM PACK TOP ONE (17:06)
[2017-07-30] MEDS ORDERED: ONDANSETRON 4 MG/2 ML VIAL ONE (17:06)
[2017-07-30] MEDS ORDERED: MORPHINE 10 MG/1 ML VIAL ONE (17:07)
[2017-07-30] MEDS ORDERED: ASPIRIN 325 MG TABLET ONE (17:07)
[2017-07-30 17:19] LABS: PT Patient Result 10.2 SECS
[2017-07-30] MEDS ORDERED: POTASSIUM CHLORIDE 20 MEQ TABLET PO PRN (20:33)
[2017-07-30] MEDS ORDERED: MORPHINE 10 MG/1 ML VIAL IV PRN (20:33)
[2017-07-30] MEDS ORDERED: ONDANSETRON 4 MG/2 ML VIAL IV PRN (20:33)
[2017-07-30] MEDS ORDERED: MAGNESIUM SULF RIDER 2 GM in PREMIX 1 EACH IV PRN (20:33)
[2017-07-30] MEDS ORDERED: NITROGLYCERIN SL 0.4 MG TABLET SL PRN (20:33)
[2017-07-30] MEDS ORDERED: MAGNESIUM SULF RIDER 4 GM in PREMIX 1 EACH IV PRN (20:33)
[2017-07-30] MEDS: SODIUM CHLORIDE 0.9% 1,000 ML IV SCH (21:29)
[2017-07-30] MEDS: BUDESONIDE/FORMOTEROL 160-4.5 INHALER 6 GM INH SCH (21:30)
[2017-07-30] MEDS: ENOXAPARIN 80 MG/0.8 ML SYRINGE SUBCUT SCH (21:30)
[2017-07-30] MEDS: METOPROLOL TARTRATE 25 MG TABLET PO SCH (21:30)
[2017-07-30] MEDS: MULTIVITAMIN (CENTRUM) TABLET PO SCH (21:30)
[2017-07-30] MEDS: PRAVASTATIN 40 MG TABLET PO SCH (21:30)
[2017-07-31 05:42] LABS: Basophils # 0.1 10*3/uL (0.0-0.2); Eosinophils # 0.2 10*3/uL (0.0-0.87); Eosinophils % 3.9 % (0.00-10.9); Hematocrit 27.5 VOL% (35.7-47.0); Hemoglobin 8.9 GM/DL (12.0-16.0); Immature Granulocytes % 0.4 %; Immature Granulocytes Absolute 0.02 #; Lymphocytes # 0.7 10*3/uL (1.4-4.0); Lymphocytes % 14.4 % (21.3-54.2); Mean Corpuscular HGB Conc 32.4 GM/DL (32-36); Mean Corpuscular Hemoglobin 32 PG (27-34); Mean Corpuscular Volume 99.3 FL (87-102); Mean Platelet Volume 12.9 FL (9.6-12.0); Monocytes # 0.7 10*3/uL (0.11-0.8); Monocytes % 14.4 % (1.7-12.7); Neutrophils # 3.4 10*3/uL (1.4-7.4); Neutrophils % 65.9 % (38.7-73.9); Platelet Count 177 T/CUMM (130-400); Red Blood Count 2.77 MC/CUMM (3.8-5.5); Red Cell Distribution Width 15.9 % (9.3-17.3); White Blood Count 5.1 T/CUMM (4-12)
[2017-07-31 06:16] LABS: Albumin 3.3 G/DL (3.4-5.0); Bilirubin,Total 0.8 MG/DL (0.2-1.0); Calcium 8.5 MG/DL (8.5-10.1); Osmolality,Calculated 269.2 MOS/KG (273-304); Potassium 4.1 MMOL/L (3.5-5.1); Risk Ratio 1.99; Total Protein 6.2 G/DL (6.4-8.3); VLDL CHOLESTEROL 17.6 MG/DL
[2017-07-31] MEDS ORDERED: FUROSEMIDE 40 MG/4 ML VIAL IV ONE (08:46)
[2017-07-31] MEDS ORDERED: PANTOPRAZOLE 40 MG TABLET PO SCH (09:00)
[2017-07-31] MEDS: ASPIRIN EC 81 MG TABLET PO SCH (09:06)
[2017-07-31] MEDS: ISOSORBIDE MONONITRATE 60 MG TABLET PO SCH (09:06)
[2017-07-31] MEDS: ENOXAPARIN 80 MG/0.8 ML SYRINGE SUBCUT SCH ×2 (09:06→21:09)
[2017-07-31] MEDS: CLOPIDOGREL 75 MG TABLET PO SCH (09:06)
[2017-07-31] MEDS: LABETALOL 100 MG TABLET PO SCH (09:07)
[2017-07-31] MEDS: LEVOTHYROXINE 75 MCG TABLET PO SCH (09:07)
[2017-07-31] MEDS: MONTELUKAST 10 MG TABLET PO SCH (09:10)
[2017-07-31] MEDS: METOPROLOL TARTRATE 25 MG TABLET PO SCH ×2 (09:10→21:09)
[2017-07-31] MEDS: MULTIVITAMIN (CENTRUM) TABLET PO SCH ×2 (09:10→21:09)
[2017-07-31] MEDS: PANTOPRAZOLE 40 MG TABLET PO SCH (09:10)
[2017-07-31] MEDS: BUDESONIDE/FORMOTEROL 160-4.5 INHALER 6 GM INH SCH ×2 (09:10→21:27)
[2017-07-31 12:27] LABS: Apearance,Urine CLEAR (Clear); Bilirubin,Urine Negative (Negative); Blood, Urine Negative (Negative); Glucose,Urine (UA) Negative (Negative); Hyaline Casts,Urine 2 /LPF (0-3); Ketones,Urine Negative (Negative); Mucus,Urine Occasional /LPF (Occasional); Nitrite,Urine Negative (Negative); Protein,Urine Negative; RBC,Urine 1 /HPF (0-4); Squamous Epithelial Cell,Urine Occasional /HPF (0-10); Urine Color Yellow (Yellow); Urine Specific Gravity 1.004 (1.001-1.035); Urine Urobilinogen < 2.0 EU/DL (0.2-1.0); WBC,Urine 1 /HPF (0-6)
[2017-07-31] MEDS ORDERED: BISACODYL 5 MG TABLET PO PRN (13:01)
[2017-07-31] MEDS ORDERED: ACETAMINOPHEN 325 MG TABLET PO PRN (13:01)
[2017-07-31] MEDS ORDERED: ZALEPLON 5 MG CAPSULE PO PRN (13:01)
[2017-07-31] MEDS ORDERED: guaiFENesin/DM ER 600-30 MG TABLET PO PRN (13:01)
[2017-07-31] MEDS ORDERED: POTASSIUM CHLORIDE RIDER 10 MEQ in PREMIX 1 EACH IV PRN (14:15)
[2017-07-31] MEDS ORDERED: MAGNESIUM SULF RIDER 2 GM in PREMIX 1 EACH IV PRN (14:15)
[2017-07-31] MEDS: PRAVASTATIN 40 MG TABLET PO SCH (21:09)
[2017-07-31] MEDS: SODIUM CHLORIDE 0.9% 1,000 ML IV SCH (21:27)
[2017-08-01 05:15] LABS: Basophils % 0.7 % (0.0-0.8); Eosinophils # 0.2 10*3/uL (0.0-0.87); Eosinophils % 3.6 % (0.00-10.9); Hematocrit 26.5 VOL% (35.7-47.0); Hemoglobin 8.6 GM/DL (12.0-16.0); Immature Granulocytes % 0.5 %; Immature Granulocytes Absolute 0.02 #; Lymphocytes # 0.5 10*3/uL (1.4-4.0); Lymphocytes % 12.5 % (21.3-54.2); Mean Corpuscular HGB Conc 32.5 GM/DL (32-36); Mean Corpuscular Hemoglobin 32 PG (27-34); Mean Corpuscular Volume 98.1 FL (87-102); Mean Platelet Volume 12.5 FL (9.6-12.0); Monocytes # 0.5 10*3/uL (0.11-0.8); Monocytes % 12.5 % (1.7-12.7); Neutrophils # 2.9 10*3/uL (1.4-7.4); Neutrophils % 70.2 % (38.7-73.9); Platelet Count 149 T/CUMM (130-400); Red Cell Distribution Width 15.9 % (9.3-17.3); White Blood Count 4.2 T/CUMM (4-12)
[2017-08-01 05:42] LABS: Calcium 8.4 MG/DL (8.5-10.1); Osmolality,Calculated 275.7 MOS/KG (273-304); Potassium 3.7 MMOL/L (3.5-5.1)
[2017-08-01] MEDS ORDERED: DIAZEPAM 5 MG TABLET PO ONE (06:30)
[2017-08-01] MEDS ORDERED: diphenhydrAMINE CAP 25 MG CAPSULE PO ONE (06:30)
[2017-08-01] MEDS ORDERED: LIDOCAINE 1% 20 ML VIAL ONE (06:40)
[2017-08-01] MEDS: ENOXAPARIN 80 MG/0.8 ML SYRINGE SUBCUT SCH (06:54)
[2017-08-01] MEDS: METOPROLOL TARTRATE 25 MG TABLET PO SCH ×3 (06:55→21:39)
[2017-08-01] MEDS: ASPIRIN EC 81 MG TABLET PO SCH ×2 (06:56→12:21)
[2017-08-01] MEDS: CLOPIDOGREL 75 MG TABLET PO SCH ×2 (06:56→12:21)
[2017-08-01] MEDS ORDERED: HYDROmorphone 2 MG/1 ML VIAL ONE (07:26)
[2017-08-01] MEDS ORDERED: MIDAZOLAM 2 MG/2 ML VIAL ONE (07:27)
[2017-08-01] MEDS ORDERED: ADENOSINE 90 MG/30 ML VIAL IV ONE (07:46)
[2017-08-01] MEDS ORDERED: CLOPIDOGREL 300 MG TABLET ONE (08:05)
[2017-08-01 10:14] LABS: Troponin I Only 0.016 NG/ML (0.00-0.045)
[2017-08-01] MEDS: ISOSORBIDE MONONITRATE 60 MG TABLET PO SCH (13:48)
[2017-08-01] MEDS: MULTIVITAMIN (CENTRUM) TABLET PO SCH ×2 (13:48→21:38)
[2017-08-01] MEDS: LEVOTHYROXINE 75 MCG TABLET PO SCH (13:49)
[2017-08-01] MEDS: BUDESONIDE/FORMOTEROL 160-4.5 INHALER 6 GM INH SCH ×2 (13:49→21:46)
[2017-08-01] MEDS: LABETALOL 100 MG TABLET PO SCH (13:49)
[2017-08-01] MEDS: MONTELUKAST 10 MG TABLET PO SCH (13:49)
[2017-08-01] MEDS: PANTOPRAZOLE 40 MG TABLET PO SCH (13:49)
[2017-08-01] MEDS: SODIUM CHLORIDE 0.9% 1,000 ML IV SCH ×2 (20:30→21:50)
[2017-08-01] MEDS: PRAVASTATIN 40 MG TABLET PO SCH (21:38)
[2017-08-02 05:19] LABS: Basophils % 0.5 % (0.0-0.8); Eosinophils # 0.2 10*3/uL (0.0-0.87); Eosinophils % 4.1 % (0.00-10.9); Hematocrit 24.9 VOL% (35.7-47.0); Hemoglobin 7.8 GM/DL (12.0-16.0); Immature Granulocytes % 0.3 %; Immature Granulocytes Absolute 0.01 #; Lymphocytes # 0.4 10*3/uL (1.4-4.0); Lymphocytes % 10.3 % (21.3-54.2); Mean Corpuscular HGB Conc 31.3 GM/DL (32-36); Mean Corpuscular Hemoglobin 31 PG (27-34); Mean Platelet Volume 12.6 FL (9.6-12.0); Monocytes # 0.5 10*3/uL (0.11-0.8); Monocytes % 13.1 % (1.7-12.7); Neutrophils # 2.8 10*3/uL (1.4-7.4); Neutrophils % 71.7 % (38.7-73.9); Platelet Count 141 T/CUMM (130-400); Red Blood Count 2.49 MC/CUMM (3.8-5.5); Red Cell Distribution Width 15.5 % (9.3-17.3); White Blood Count 3.9 T/CUMM (4-12)
[2017-08-02 05:59] LABS: Blood Urea Nitrogen 14 MG/DL (7-18); Calcium 8.2 MG/DL (8.5-10.1); Glucose 85 MG/DL (74-106); Osmolality,Calculated 272.8 MOS/KG (273-304); Potassium 4.1 MMOL/L (3.5-5.1); Sodium 137 MMOL/L (136-145); Troponin I Only 0.258 NG/ML (0.00-0.045)
[2017-08-02] MEDS: ASPIRIN EC 81 MG TABLET PO SCH (10:00)
[2017-08-02] MEDS: MULTIVITAMIN (CENTRUM) TABLET PO SCH ×2 (10:03→21:09)
[2017-08-02] MEDS: PANTOPRAZOLE 40 MG TABLET PO SCH (10:04)
[2017-08-02] MEDS: ISOSORBIDE MONONITRATE 60 MG TABLET PO SCH (10:04)
[2017-08-02] MEDS: METOPROLOL TARTRATE 25 MG TABLET PO SCH ×2 (10:04→21:09)
[2017-08-02] MEDS: CLOPIDOGREL 75 MG TABLET PO SCH (10:04)
[2017-08-02] MEDS: BUDESONIDE/FORMOTEROL 160-4.5 INHALER 6 GM INH SCH ×2 (10:05→21:08)
[2017-08-02] MEDS: MONTELUKAST 10 MG TABLET PO SCH (10:05)
[2017-08-02] MEDS: LEVOTHYROXINE 75 MCG TABLET PO SCH (10:05)
[2017-08-02] MEDS: LABETALOL 100 MG TABLET PO SCH (10:05)
[2017-08-02] MEDS ORDERED: CLORAZEPATE 3.75 MG TABLET PO PRN (17:07)
[2017-08-02 17:29] LABS: Basophils % 0.4 % (0.0-0.8); Eosinophils # 0.1 10*3/uL (0.0-0.87); Hematocrit 25.1 VOL% (35.7-47.0); Hemoglobin 7.9 GM/DL (12.0-16.0); Immature Granulocytes % 0.4 %; Immature Granulocytes Absolute 0.02 #; Lymphocytes # 0.5 10*3/uL (1.4-4.0); Lymphocytes % 10.5 % (21.3-54.2); Mean Corpuscular HGB Conc 31.5 GM/DL (32-36); Mean Corpuscular Hemoglobin 31 PG (27-34); Mean Corpuscular Volume 99.2 FL (87-102); Mean Platelet Volume 11.5 FL (9.6-12.0); Monocytes # 0.6 10*3/uL (0.11-0.8); Neutrophils # 3.5 10*3/uL (1.4-7.4); Neutrophils % 73.7 % (38.7-73.9); Platelet Count 150 T/CUMM (130-400); Red Blood Count 2.53 MC/CUMM (3.8-5.5); Red Cell Distribution Width 15.4 % (9.3-17.3); White Blood Count 4.7 T/CUMM (4-12)
[2017-08-02] MEDS: THIAMINE 100 MG TABLET PO SCH (17:31)
[2017-08-02] MEDS: SODIUM CHLORIDE 0.9% 1,000 ML IV SCH (20:37)
[2017-08-02] MEDS: PRAVASTATIN 40 MG TABLET PO SCH (21:09)
[2017-08-03 05:32] LABS: Basophils % 0.6 % (0.0-0.8); Eosinophils # 0.2 10*3/uL (0.0-0.87); Eosinophils % 5.1 % (0.00-10.9); Hematocrit 26.2 VOL% (35.7-47.0); Hemoglobin 8.6 GM/DL (12.0-16.0); Immature Granulocytes % 0.2 %; Immature Granulocytes Absolute 0.01 #; Lymphocytes # 0.5 10*3/uL (1.4-4.0); Lymphocytes % 11.5 % (21.3-54.2); Mean Corpuscular HGB Conc 32.8 GM/DL (32-36); Mean Corpuscular Hemoglobin 32 PG (27-34); Mean Corpuscular Volume 96.7 FL (87-102); Mean Platelet Volume 12.5 FL (9.6-12.0); Monocytes # 0.7 10*3/uL (0.11-0.8); Monocytes % 14.6 % (1.7-12.7); Neutrophils # 3.2 10*3/uL (1.4-7.4); Platelet Count 151 T/CUMM (130-400); Red Blood Count 2.71 MC/CUMM (3.8-5.5); Red Cell Distribution Width 15.5 % (9.3-17.3); White Blood Count 4.7 T/CUMM (4-12)
[2017-08-03 06:16] LABS: Calcium 8.7 MG/DL (8.5-10.1); Osmolality,Calculated 271.8 MOS/KG (273-304); Potassium 4.2 MMOL/L (3.5-5.1)
[2017-08-03] MEDS: METOPROLOL TARTRATE 25 MG TABLET PO SCH (09:52)
[2017-08-03] MEDS: CLOPIDOGREL 75 MG TABLET PO SCH (09:52)
[2017-08-03] MEDS: ASPIRIN EC 81 MG TABLET PO SCH (09:52)
[2017-08-03] MEDS: THIAMINE 100 MG TABLET PO SCH (09:52)
[2017-08-03] MEDS: MULTIVITAMIN (CENTRUM) TABLET PO SCH (09:52)
[2017-08-03] MEDS: MONTELUKAST 10 MG TABLET PO SCH (09:52)
[2017-08-03] MEDS: LABETALOL 100 MG TABLET PO SCH (09:52)
[2017-08-03] MEDS: PANTOPRAZOLE 40 MG TABLET PO SCH (09:52)
[2017-08-03] MEDS: LEVOTHYROXINE 75 MCG TABLET PO SCH (09:52)
[2017-08-03] MEDS: ISOSORBIDE MONONITRATE 60 MG TABLET PO SCH (09:52)
[2017-08-03] MEDS: BUDESONIDE/FORMOTEROL 160-4.5 INHALER 6 GM INH SCH (09:53)
[2017-08-03 11:47] VITALS: BP 130/60
== END 2017-08-03 13:59 | disposition home or self-care (01) | DRG 247 ==
LOC: EDBD → EDUNIT# → N.ED 15:22 → N.EDINP 19:42 → N.TELEN 20:05
PROVIDERS: ADMIT Internal Medicine Cardiovascular Disease; ATTEND Internal Medicine Cardiovascular Disease
PROC: CLCCHCL (ICD-10-PCS; 2017-08-01 07:45)

== ENCOUNTER 2017-08-26 07:38 | Inpatient (IN) ==
[2017-08-26] MEDS ORDERED: LEVOFLOXACIN 500 MG TABLET PO STA (08:42)
[2017-08-26] MEDS ORDERED: methylPREDNISolone SOD SUC 125 MG/2 ML VIAL IV STA (08:42)
[2017-08-26] MEDS ORDERED: ALBUTEROL NEB SOLN 5 MG/ML 20 ML/BOTTLE RESP TX SCH (09:00)
[2017-08-26] MEDS ORDERED: methylPREDNISolone SOD SUC 125 MG/2 ML VIAL ONE (09:23)
[2017-08-26] MEDS ORDERED: LEVOFLOXACIN 500 MG TABLET ONE (09:23)
[2017-08-26 09:29] LABS: Apearance,Urine CLEAR (Clear); Bilirubin,Urine Negative (Negative); Blood, Urine Negative (Negative); Glucose,Urine (UA) Negative (Negative); Ketones,Urine Negative (Negative); Nitrite,Urine Negative (Negative); Protein,Urine Negative; RBC,Urine 1 /HPF (0-4); Squamous Epithelial Cell,Urine Occasional /HPF (0-10); Urine Color Straw (Yellow); Urine Specific Gravity 1.005 (1.001-1.035); Urine Urobilinogen < 2.0 EU/DL (0.2-1.0)
[2017-08-26 09:55] LABS: PT Patient Result 10.3 SECS; Partial Thromboplastin Time 24.2 SECS (0-40)
[2017-08-26 10:07] LABS: Alanine Aminotransferase 12 U/L (13-56); Albumin 3.5 G/DL (3.4-5.0); Alkaline Phosphatase 91 U/L (45-117); Aspartate Amino Transferase 14 U/L (0-37); Basophils % 0.3 % (0.0-0.8); Bilirubin,Total < 0.39 MG/DL (0.2-1.0); Blood Urea Nitrogen 9 MG/DL (7-18); Calcium 8.7 MG/DL (8.5-10.1); Eosinophils # 0.1 10*3/uL (0.0-0.87); Eosinophils % 2.3 % (0.00-10.9); Glucose 104 MG/DL (74-106); Hematocrit 23.1 VOL% (35.7-47.0); Hemoglobin 7.2 GM/DL (12.0-16.0); Immature Granulocytes % 0.5 %; Immature Granulocytes Absolute 0.02 #; Lymphocytes # 0.2 10*3/uL (1.4-4.0); Lymphocytes % 4.8 % (21.3-54.2); Mean Corpuscular HGB Conc 31.2 GM/DL (32-36); Mean Corpuscular Hemoglobin 29 PG (27-34); Mean Corpuscular Volume 91.7 FL (87-102); Mean Platelet Volume 12.1 FL (9.6-12.0); Monocytes # 0.4 10*3/uL (0.11-0.8); Monocytes % 10.4 % (1.7-12.7); Neutrophils # 3.2 10*3/uL (1.4-7.4); Neutrophils % 81.7 % (38.7-73.9); Osmolality,Calculated 260.7 MOS/KG (273-304); Platelet Count 186 T/CUMM (130-400); Potassium 3.5 MMOL/L (3.5-5.1); Red Blood Count 2.52 MC/CUMM (3.8-5.5); Red Cell Distribution Width 16.5 % (9.3-17.3); Sodium 131 MMOL/L (136-145); Total Protein 6.2 G/DL (6.4-8.3); Troponin I Only < 0.015 NG/ML (0.00-0.045); White Blood Count 3.9 T/CUMM (4-12)
[2017-08-26 10:33] LABS: Hypochromasia 2+; Macrocytosis 1+; Microcytosis 2+; Polychromasia Slight; Target Cells 1+
[2017-08-26] MEDS ORDERED: ACETAMINOPHEN 325 MG TABLET PO PRN (13:45)
[2017-08-26] MEDS ORDERED: ONDANSETRON 4 MG/2 ML VIAL IV PRN (13:45)
[2017-08-26 13:52] LABS: % Iron Saturation 7.9 % (18-50); Ferritin 9.7 ng/ml (8-252)
[2017-08-26] MEDS ORDERED: NITROGLYCERIN SL 0.4 MG TABLET SL PRN (13:53)
[2017-08-26] MEDS ORDERED: SODIUM CHLORIDE 0.9% 1,000 ML IV PRN (14:00)
[2017-08-26] MEDS ORDERED: SODIUM CHLORIDE 0.9% 1,000 ML IV SCH (14:00)
[2017-08-26] MEDS: ALBUTEROL/IPRATROPIUM 3 ML NEB RESP TX SCH ×3 (15:27→23:53)
[2017-08-26] MEDS: methylPREDNISolone SOD SUC 40 MG/1 ML VIAL IV SCH (16:52)
[2017-08-26] MEDS: RANOLAZINE 500 MG TABLET PO SCH (20:18)
[2017-08-26] MEDS: BUDESONIDE/FORMOTEROL 160-4.5 INHALER 6 GM INH SCH (20:18)
[2017-08-26] MEDS: MULTIVITAMIN (OCUVITE) TABLET PO SCH (20:18)
[2017-08-26] MEDS: PRAVASTATIN 40 MG TABLET PO SCH (20:18)
[2017-08-26] MEDS: METOPROLOL TARTRATE 25 MG TABLET PO SCH (20:18)
[2017-08-26 21:57] LABS: Hematocrit 31.7 VOL% (35.7-47.0); Hemoglobin 10.2 GM/DL (12.0-16.0)
[2017-08-26 22:24] LABS: PT Patient Result 10.5 SECS
[2017-08-27] MEDS: methylPREDNISolone SOD SUC 40 MG/1 ML VIAL IV SCH ×3 (02:03→18:01)
[2017-08-27] MEDS: ALBUTEROL/IPRATROPIUM 3 ML NEB RESP TX SCH ×5 (03:15→20:08)
[2017-08-27 05:34] LABS: Hematocrit 32.4 VOL% (35.7-47.0); Hemoglobin 10.1 GM/DL (12.0-16.0); Immature Granulocytes % 1.1 %; Immature Granulocytes Absolute 0.04 #; Lymphocytes # 0.2 10*3/uL (1.4-4.0); Lymphocytes % 6.1 % (21.3-54.2); Mean Corpuscular HGB Conc 31.2 GM/DL (32-36); Mean Corpuscular Hemoglobin 29 PG (27-34); Mean Corpuscular Volume 91.8 FL (87-102); Mean Platelet Volume 11.8 FL (9.6-12.0); Monocytes # 0.2 10*3/uL (0.11-0.8); Monocytes % 4.2 % (1.7-12.7); Neutrophils # 3.2 10*3/uL (1.4-7.4); Neutrophils % 88.6 % (38.7-73.9); Platelet Count 174 T/CUMM (130-400); Red Blood Count 3.53 MC/CUMM (3.8-5.5); White Blood Count 3.6 T/CUMM (4-12)
[2017-08-27 06:16] LABS: Magnesium 2.4 MG/DL (1.8-2.4); Osmolality,Calculated 267.2 MOS/KG (273-304); Potassium 3.8 MMOL/L (3.5-5.1)
[2017-08-27] MEDS ORDERED: LIDOCAINE 100 MG/5 ML SYRINGE ONE (10:00)
[2017-08-27] MEDS ORDERED: PROPOFOL 200 MG/20 ML VIAL IV ONE (10:00)
[2017-08-27] MEDS: METOPROLOL TARTRATE 25 MG TABLET PO SCH ×2 (10:08→20:45)
[2017-08-27] MEDS: BISACODYL 5 MG TABLET PO SCH ×3 (10:08→21:36)
[2017-08-27] MEDS: PANTOPRAZOLE 40 MG TABLET PO SCH (10:09)
[2017-08-27] MEDS: MULTIVITAMIN (OCUVITE) TABLET PO SCH ×2 (10:09→20:45)
[2017-08-27] MEDS: ASPIRIN EC 81 MG TABLET PO SCH (10:09)
[2017-08-27] MEDS: RANOLAZINE 500 MG TABLET PO SCH ×2 (10:09→20:45)
[2017-08-27] MEDS: FUROSEMIDE 40 MG TABLET PO SCH (10:09)
[2017-08-27] MEDS: ISOSORBIDE MONONITRATE 60 MG TABLET PO SCH (10:09)
[2017-08-27] MEDS: LEVOTHYROXINE 75 MCG TABLET PO SCH (10:09)
[2017-08-27] MEDS: MONTELUKAST 10 MG TABLET PO SCH (10:09)
[2017-08-27] MEDS: BUDESONIDE/FORMOTEROL 160-4.5 INHALER 6 GM INH SCH ×2 (10:10→20:45)
[2017-08-27] MEDS ORDERED: POLYETHYLENE GLYCOL POWDER 255 GM BOTTLE PO ONE (16:00)
[2017-08-27] MEDS: PRAVASTATIN 40 MG TABLET PO SCH (20:45)
[2017-08-27] MEDS ORDERED: MAGNESIUM CITRATE 300 ML BOTTLE PO ONE (22:00)
[2017-08-28] MEDS: ALBUTEROL/IPRATROPIUM 3 ML NEB RESP TX SCH ×4 (00:06→10:10)
[2017-08-28] MEDS: methylPREDNISolone SOD SUC 40 MG/1 ML VIAL IV SCH ×2 (00:48→08:02)
[2017-08-28] MEDS: BISACODYL 5 MG TABLET PO SCH (00:50)
[2017-08-28 05:30] LABS: Hematocrit 31.5 VOL% (35.7-47.0); Hemoglobin 10.5 GM/DL (12.0-16.0); Immature Granulocytes % 0.5 %; Immature Granulocytes Absolute 0.04 #; Lymphocytes # 0.2 10*3/uL (1.4-4.0); Lymphocytes % 2.9 % (21.3-54.2); Mean Corpuscular HGB Conc 33.3 GM/DL (32-36); Mean Corpuscular Hemoglobin 29 PG (27-34); Mean Platelet Volume 12.7 FL (9.6-12.0); Monocytes # 0.2 10*3/uL (0.11-0.8); Monocytes % 2.6 % (1.7-12.7); Neutrophils # 7.7 10*3/uL (1.4-7.4); Platelet Count 193 T/CUMM (130-400); Red Blood Count 3.58 MC/CUMM (3.8-5.5); Red Cell Distribution Width 15.9 % (9.3-17.3); White Blood Count 8.2 T/CUMM (4-12)
[2017-08-28 05:54] LABS: Hypochromasia 1+; Lymphocytes 2 % (20-55); Microcytosis 1+; Segmented Neutrophils 95 % (50-85); Total Cells Counted 100
[2017-08-28 05:55] LABS: Platelet Estimate Adequate
[2017-08-28 06:08] LABS: Calcium 9.2 MG/DL (8.5-10.1); Osmolality,Calculated 270.1 MOS/KG (273-304); Potassium 2.8 MMOL/L (3.5-5.1)
[2017-08-28] MEDS: LEVOTHYROXINE 75 MCG TABLET PO SCH (07:59)
[2017-08-28] MEDS: POTASSIUM CHLORIDE RIDER 10 MEQ in PREMIX 1 EACH IV SCH ×4 (07:59→11:17)
[2017-08-28] MEDS: METOPROLOL TARTRATE 25 MG TABLET PO SCH (08:00)
[2017-08-28] MEDS: RANOLAZINE 500 MG TABLET PO SCH (08:00)
[2017-08-28] MEDS: MULTIVITAMIN (OCUVITE) TABLET PO SCH (08:00)
[2017-08-28] MEDS: ISOSORBIDE MONONITRATE 60 MG TABLET PO SCH (08:00)
[2017-08-28] MEDS: PANTOPRAZOLE 40 MG TABLET PO SCH (08:00)
[2017-08-28] MEDS: MONTELUKAST 10 MG TABLET PO SCH (08:00)
[2017-08-28] MEDS: FUROSEMIDE 40 MG TABLET PO SCH (08:02)
[2017-08-28] MEDS: ASPIRIN EC 81 MG TABLET PO SCH (08:02)
[2017-08-28] MEDS: BUDESONIDE/FORMOTEROL 160-4.5 INHALER 6 GM INH SCH (08:02)
[2017-08-28] MEDS ORDERED: POTASSIUM CHLORIDE INJ 20 MEQ in SODIUM CHLORIDE 0.45% 250 ML IV PRN (08:23)
[2017-08-28] MEDS ORDERED: LIDOCAINE 2% 5 ML VIAL ONE (12:05)
[2017-08-28] MEDS ORDERED: ETOMIDATE 20 MG/10 ML VIAL IV ONE (12:05)
[2017-08-28] MEDS ORDERED: PROPOFOL 200 MG/20 ML VIAL IV ONE (12:05)
[2017-08-28 13:31] VITALS: BP 133/58
[2017-08-28] MEDS ORDERED: POTASSIUM CHLORIDE 20 MEQ/15 ML UDCUP PO ONE (14:28)
[2017-08-28] MEDS ORDERED: SPIRONOLACTONE 25 MG TABLET PO SCH (14:30)
== END 2017-08-28 15:13 | disposition home or self-care (01) | DRG 378 ==
LOC: EDBD → EDUNIT# → N.ED 07:38 → N.EDINP 12:37 → N.5E 16:51

== ENCOUNTER 2017-09-26 14:41 | Observation (INO) | END 2017-09-27 16:15 | disposition home or self-care (01) | LOC: N.TELEN | PROVIDERS: ADMIT Internal Medicine; ATTEND Internal Medicine ==

== ENCOUNTER 2018-04-26 08:10 | Inpatient (IN) ==
[2018-04-26] MEDS ORDERED: ACETAMINOPHEN 325 MG TABLET PO PRN (10:08)
[2018-04-26] MEDS ORDERED: ALBUTEROL 2.5 MG/3 ML NEB RESP TX PRN (10:21)
[2018-04-26 11:12] LABS: Basophils # 0.1 10*3/uL (0.0-0.2); Basophils % 0.8 % (0.0-0.8); Eosinophils # 0.3 10*3/uL (0.0-0.87); Eosinophils % 3.9 % (0.00-10.9); Hemoglobin 13.1 GM/DL (12.0-16.0); Immature Granulocytes % 0.6 %; Immature Granulocytes Absolute 0.04 #; Lymphocytes # 0.5 10*3/uL (1.4-4.0); Lymphocytes % 7.9 % (21.3-54.2); Mean Corpuscular HGB Conc 33.6 GM/DL (32-36); Mean Corpuscular Hemoglobin 34 PG (27-34); Mean Corpuscular Volume 101.3 FL (87-102); Monocytes # 0.5 10*3/uL (0.11-0.8); Monocytes % 8.2 % (1.7-12.7); Neutrophils # 5.1 10*3/uL (1.4-7.4); Neutrophils % 78.6 % (38.7-73.9); Platelet Count 159 T/CUMM (130-400); Red Blood Count 3.85 MC/CUMM (3.8-5.5); Red Cell Distribution Width 12.1 % (9.3-17.3); White Blood Count 6.5 T/CUMM (4-12)
[2018-04-26 12:05] LABS: Albumin 3.7 G/DL (3.4-5.0); Bilirubin,Total 0.5 MG/DL (0.2-1.0); Calcium 9.1 MG/DL (8.5-10.1); Osmolality,Calculated 264.4 MOS/KG (273-304); Potassium 4.6 MMOL/L (3.5-5.1); Thyroid Stimulating Hormone 2.55 uIU/ml (0.358-3.74)
[2018-04-26] MEDS: ALBUTEROL/IPRATROPIUM 3 ML NEB RESP TX SCH ×2 (12:29→19:04)
[2018-04-26] MEDS: BUDESONIDE 0.5 MG/2 ML NEB RESP TX SCH ×2 (12:29→19:04)
[2018-04-26 14:28] LABS: Apearance,Urine CLEAR (Clear); Bilirubin,Urine Negative (Negative); Blood, Urine Negative (Negative); Glucose,Urine (UA) Negative (Negative); Ketones,Urine Negative (Negative); Nitrite,Urine Negative (Negative); Protein,Urine Negative; RBC,Urine 1 /HPF (0-4); Squamous Epithelial Cell,Urine Occasional /HPF (0-10); Urine Color Straw (Yellow); Urine Specific Gravity 1.008 (1.001-1.035); Urine Urobilinogen < 2.0 EU/DL (0.2-1.0); WBC,Urine 1 /HPF (0-6)
[2018-04-26] MEDS: CLORAZEPATE 3.75 MG TABLET PO SCH ×2 (15:50→21:03)
[2018-04-26] MEDS: BENZONATATE 100 MG CAPSULE PO SCH ×2 (15:50→21:03)
[2018-04-26] MEDS: guaiFENesin/DM ER 600-30 MG TABLET PO SCH ×2 (15:50→21:03)
[2018-04-26] MEDS: methylPREDNISolone SOD SUC 40 MG/1 ML VIAL IV SCH ×2 (15:51→20:54)
[2018-04-26] MEDS: LEVOFLOXACIN INJ 750 MG in PREMIX 1 EACH IV SCH (15:56)
[2018-04-26] MEDS: AZTREONAM 2,000 MG in SYRINGE 1 EACH IV SCH ×2 (17:43→22:32)
[2018-04-26] MEDS: ENOXAPARIN 40 MG/0.4 ML SYRINGE SUBCUT SCH (21:04)
[2018-04-26] MEDS ORDERED: NITROGLYCERIN SL 0.4 MG TABLET SL PRN (21:36)
[2018-04-26] MEDS ORDERED: FUROSEMIDE 40 MG TABLET PO PRN (21:36)
[2018-04-26] MEDS: LABETALOL 100 MG TABLET PO SCH (22:42)
[2018-04-26] MEDS: PRAVASTATIN 20 MG TABLET PO SCH (22:42)
[2018-04-27] MEDS: ALBUTEROL/IPRATROPIUM 3 ML NEB RESP TX SCH ×4 (00:49→19:11)
[2018-04-27] MEDS: methylPREDNISolone SOD SUC 40 MG/1 ML VIAL IV SCH ×3 (04:39→21:06)
[2018-04-27] MEDS: AZTREONAM 2,000 MG in SYRINGE 1 EACH IV SCH ×4 (04:40→23:16)
[2018-04-27 06:20] LABS: Basophils % 0.2 % (0.0-0.8); Hematocrit 38.7 VOL% (35.7-47.0); Hemoglobin 12.8 GM/DL (12.0-16.0); Immature Granulocytes % 0.5 %; Immature Granulocytes Absolute 0.03 #; Lymphocytes # 0.3 10*3/uL (1.4-4.0); Lymphocytes % 4.5 % (21.3-54.2); Mean Corpuscular HGB Conc 33.1 GM/DL (32-36); Mean Corpuscular Hemoglobin 33 PG (27-34); Mean Corpuscular Volume 99.7 FL (87-102); Mean Platelet Volume 12.4 FL (9.6-12.0); Monocytes # 0.1 10*3/uL (0.11-0.8); Monocytes % 1.1 % (1.7-12.7); Neutrophils # 5.8 10*3/uL (1.4-7.4); Neutrophils % 93.7 % (38.7-73.9); Platelet Count 158 T/CUMM (130-400); Red Blood Count 3.88 MC/CUMM (3.8-5.5); Red Cell Distribution Width 12.1 % (9.3-17.3); White Blood Count 6.2 T/CUMM (4-12)
[2018-04-27 06:52] LABS: Albumin 3.4 G/DL (3.4-5.0); Bilirubin,Total 0.7 MG/DL (0.2-1.0); Calcium 8.7 MG/DL (8.5-10.1); Osmolality,Calculated 263.8 MOS/KG (273-304); Potassium 4.2 MMOL/L (3.5-5.1); Total Protein 6.6 G/DL (6.4-8.3)
[2018-04-27 06:55] LABS: Risk Ratio 1.9
[2018-04-27] MEDS: ALBUTEROL 2.5 MG/3 ML NEB RESP TX SCH (07:06)
[2018-04-27] MEDS: BUDESONIDE 0.5 MG/2 ML NEB RESP TX SCH ×2 (07:06→19:11)
[2018-04-27] MEDS: LEVOTHYROXINE 75 MCG TABLET PO SCH (07:13)
[2018-04-27 08:01] LABS: Band Neutrophils 1 % (0-10); Lymphocytes 10 % (20-55); Macrocytosis 2+; Platelet Estimate Normal; Segmented Neutrophils 89 % (50-85); Total Cells Counted 100
[2018-04-27] MEDS: ISOSORBIDE MONONITRATE 60 MG TABLET PO SCH (08:54)
[2018-04-27] MEDS: PANTOPRAZOLE 40 MG TABLET PO SCH ×2 (08:54→21:31)
[2018-04-27] MEDS: guaiFENesin/DM ER 600-30 MG TABLET PO SCH ×2 (08:54→21:31)
[2018-04-27] MEDS: BENZONATATE 100 MG CAPSULE PO SCH ×3 (08:54→21:31)
[2018-04-27] MEDS: CLOPIDOGREL 75 MG TABLET PO SCH (08:54)
[2018-04-27] MEDS: MULTIVITAMIN (OCUVITE) TABLET PO SCH ×2 (08:55→21:31)
[2018-04-27] MEDS: CLORAZEPATE 3.75 MG TABLET PO SCH ×3 (08:55→21:31)
[2018-04-27] MEDS: LABETALOL 100 MG TABLET PO SCH ×2 (08:55→21:31)
[2018-04-27] MEDS: POTASSIUM CHLORIDE 20 MEQ TABLET PO SCH (08:55)
[2018-04-27] MEDS: LOSARTAN 25 MG TABLET PO SCH (08:55)
[2018-04-27] MEDS: ASPIRIN EC 81 MG TABLET PO SCH (08:55)
[2018-04-27] MEDS ORDERED: IRON POLYSACCHARIDE COMPLEX PO SCH (09:00)
[2018-04-27 11:22] LABS: Troponin I < 0.015 NG/ML (0.00-0.045)
[2018-04-27] MEDS: LEVOFLOXACIN INJ 750 MG in PREMIX 1 EACH IV SCH (11:47)
[2018-04-27 15:08] LABS: Troponin I < 0.015 NG/ML (0.00-0.045)
[2018-04-27] MEDS: POLYETHYLENE GLYCOL POWDER 17 GM PACK PO SCH (17:17)
[2018-04-27] MEDS: amLODIPine 5 MG TABLET PO SCH (17:17)
[2018-04-27] MEDS: PRAVASTATIN 20 MG TABLET PO SCH (21:31)
[2018-04-27] MEDS: ENOXAPARIN 40 MG/0.4 ML SYRINGE SUBCUT SCH (21:32)
[2018-04-28] MEDS: ALBUTEROL/IPRATROPIUM 3 ML NEB RESP TX SCH ×4 (00:41→19:29)
[2018-04-28 04:36] LABS: Calcium 8.6 MG/DL (8.5-10.1); Osmolality,Calculated 254.5 MOS/KG (273-304); Potassium 4.5 MMOL/L (3.5-5.1)
[2018-04-28 04:41] LABS: Troponin I < 0.015 NG/ML (0.00-0.045)
[2018-04-28] MEDS: methylPREDNISolone SOD SUC 40 MG/1 ML VIAL IV SCH ×3 (05:22→20:40)
[2018-04-28] MEDS: AZTREONAM 2,000 MG in SYRINGE 1 EACH IV SCH ×4 (05:23→23:45)
[2018-04-28] MEDS: LEVOTHYROXINE 75 MCG TABLET PO SCH (06:45)
[2018-04-28] MEDS: BUDESONIDE 0.5 MG/2 ML NEB RESP TX SCH ×2 (07:10→19:29)
[2018-04-28] MEDS: ALBUTEROL 2.5 MG/3 ML NEB RESP TX SCH (08:23)
[2018-04-28] MEDS: SODIUM CHLORIDE 0.9% 1,000 ML IV SCH ×2 (08:54→23:49)
[2018-04-28] MEDS: POTASSIUM CHLORIDE 20 MEQ TABLET PO SCH (08:57)
[2018-04-28] MEDS: CLORAZEPATE 3.75 MG TABLET PO SCH ×3 (08:57→20:39)
[2018-04-28] MEDS: PANTOPRAZOLE 40 MG TABLET PO SCH ×2 (08:57→20:39)
[2018-04-28] MEDS: MULTIVITAMIN (OCUVITE) TABLET PO SCH ×2 (08:57→20:39)
[2018-04-28] MEDS: BENZONATATE 100 MG CAPSULE PO SCH ×3 (08:57→20:41)
[2018-04-28] MEDS: amLODIPine 5 MG TABLET PO SCH (08:57)
[2018-04-28] MEDS: ISOSORBIDE MONONITRATE 60 MG TABLET PO SCH (08:57)
[2018-04-28] MEDS: LABETALOL 100 MG TABLET PO SCH ×2 (08:57→20:39)
[2018-04-28] MEDS: guaiFENesin/DM ER 600-30 MG TABLET PO SCH ×2 (08:57→20:39)
[2018-04-28] MEDS: POLYETHYLENE GLYCOL POWDER 17 GM PACK PO SCH (08:58)
[2018-04-28] MEDS: CLOPIDOGREL 75 MG TABLET PO SCH (08:58)
[2018-04-28] MEDS: LOSARTAN 25 MG TABLET PO SCH (08:58)
[2018-04-28] MEDS: MONTELUKAST 10 MG TABLET PO SCH (08:58)
[2018-04-28] MEDS: ASPIRIN EC 81 MG TABLET PO SCH (08:58)
[2018-04-28] MEDS: LEVOFLOXACIN INJ 750 MG in PREMIX 1 EACH IV SCH (10:07)
[2018-04-28] MEDS: PRAVASTATIN 20 MG TABLET PO SCH (20:39)
[2018-04-28] MEDS: ENOXAPARIN 40 MG/0.4 ML SYRINGE SUBCUT SCH (21:57)
[2018-04-29] MEDS: ALBUTEROL/IPRATROPIUM 3 ML NEB RESP TX SCH ×4 (00:28→19:11)
[2018-04-29] MEDS: methylPREDNISolone SOD SUC 40 MG/1 ML VIAL IV SCH (05:20)
[2018-04-29] MEDS: AZTREONAM 2,000 MG in SYRINGE 1 EACH IV SCH ×2 (05:24→10:54)
[2018-04-29] MEDS: LEVOTHYROXINE 75 MCG TABLET PO SCH (05:25)
[2018-04-29 06:24] LABS: Hematocrit 35.5 VOL% (35.7-47.0); Hemoglobin 11.8 GM/DL (12.0-16.0); Immature Granulocytes % 0.7 %; Immature Granulocytes Absolute 0.06 #; Lymphocytes # 0.2 10*3/uL (1.4-4.0); Lymphocytes % 2.6 % (21.3-54.2); Mean Corpuscular HGB Conc 33.2 GM/DL (32-36); Mean Corpuscular Hemoglobin 33 PG (27-34); Mean Corpuscular Volume 98.3 FL (87-102); Mean Platelet Volume 12.6 FL (9.6-12.0); Monocytes # 0.2 10*3/uL (0.11-0.8); Monocytes % 2.4 % (1.7-12.7); Neutrophils # 8.1 10*3/uL (1.4-7.4); Neutrophils % 94.3 % (38.7-73.9); Platelet Count 148 T/CUMM (130-400); Red Blood Count 3.61 MC/CUMM (3.8-5.5); Red Cell Distribution Width 11.9 % (9.3-17.3); White Blood Count 8.6 T/CUMM (4-12)
[2018-04-29 06:45] LABS: Calcium 8.6 MG/DL (8.5-10.1); Osmolality,Calculated 252.5 MOS/KG (273-304); Potassium 4.5 MMOL/L (3.5-5.1)
[2018-04-29 06:53] LABS: Hypochromasia 1+; Lymphocytes 5 % (20-55); Platelet Estimate Normal; Segmented Neutrophils 91 % (50-85); Total Cells Counted 100
[2018-04-29 06:54] LABS: Macrocytosis Slight
[2018-04-29] MEDS: BUDESONIDE 0.5 MG/2 ML NEB RESP TX SCH ×2 (06:57→19:11)
[2018-04-29] MEDS: ALBUTEROL 2.5 MG/3 ML NEB RESP TX SCH (07:00)
[2018-04-29] MEDS: POLYETHYLENE GLYCOL POWDER 17 GM PACK PO SCH (08:54)
[2018-04-29] MEDS: MONTELUKAST 10 MG TABLET PO SCH (08:54)
[2018-04-29] MEDS: MULTIVITAMIN (OCUVITE) TABLET PO SCH ×2 (08:54→22:14)
[2018-04-29] MEDS: CLOPIDOGREL 75 MG TABLET PO SCH (08:54)
[2018-04-29] MEDS: ASPIRIN EC 81 MG TABLET PO SCH (08:54)
[2018-04-29] MEDS: amLODIPine 5 MG TABLET PO SCH (08:54)
[2018-04-29] MEDS: LABETALOL 100 MG TABLET PO SCH ×2 (08:54→22:15)
[2018-04-29] MEDS: ISOSORBIDE MONONITRATE 60 MG TABLET PO SCH (08:55)
[2018-04-29] MEDS: POTASSIUM CHLORIDE 20 MEQ TABLET PO SCH (08:56)
[2018-04-29] MEDS: LOSARTAN 25 MG TABLET PO SCH (08:56)
[2018-04-29] MEDS: guaiFENesin/DM ER 600-30 MG TABLET PO SCH ×2 (08:56→22:14)
[2018-04-29] MEDS: PANTOPRAZOLE 40 MG TABLET PO SCH ×2 (08:56→22:14)
[2018-04-29] MEDS: BENZONATATE 100 MG CAPSULE PO SCH ×3 (08:56→22:15)
[2018-04-29] MEDS: CLORAZEPATE 3.75 MG TABLET PO SCH ×3 (08:56→22:14)
[2018-04-29] MEDS: LEVOFLOXACIN INJ 750 MG in PREMIX 1 EACH IV SCH (10:59)
[2018-04-29] MEDS ORDERED: SODIUM BICARBONATE 650 MG TABLET PO SCH (11:00)
[2018-04-29] MEDS: SODIUM BICARBONATE 650 MG TABLET PO SCH ×2 (15:24→22:15)
[2018-04-29] MEDS: PRAVASTATIN 20 MG TABLET PO SCH (22:14)
[2018-04-29] MEDS: ENOXAPARIN 40 MG/0.4 ML SYRINGE SUBCUT SCH (22:16)
[2018-04-30] MEDS: ALBUTEROL/IPRATROPIUM 3 ML NEB RESP TX SCH ×2 (01:14→07:24)
[2018-04-30 05:18] LABS: Eosinophils % 0.5 % (0.00-10.9); Hematocrit 34.9 VOL% (35.7-47.0); Hemoglobin 11.6 GM/DL (12.0-16.0); Immature Granulocytes % 0.5 %; Immature Granulocytes Absolute 0.04 #; Lymphocytes # 0.6 10*3/uL (1.4-4.0); Lymphocytes % 8.2 % (21.3-54.2); Mean Corpuscular HGB Conc 33.2 GM/DL (32-36); Mean Corpuscular Hemoglobin 33 PG (27-34); Mean Corpuscular Volume 99.1 FL (87-102); Mean Platelet Volume 12.1 FL (9.6-12.0); Monocytes # 0.9 10*3/uL (0.11-0.8); Neutrophils # 6.2 10*3/uL (1.4-7.4); Neutrophils % 79.8 % (38.7-73.9); Platelet Count 132 T/CUMM (130-400); Red Blood Count 3.52 MC/CUMM (3.8-5.5); Red Cell Distribution Width 12.1 % (9.3-17.3); White Blood Count 7.8 T/CUMM (4-12)
[2018-04-30 05:33] LABS: Calcium 8.1 MG/DL (8.5-10.1); Osmolality,Calculated 256.1 MOS/KG (273-304)
[2018-04-30] MEDS: LEVOTHYROXINE 75 MCG TABLET PO SCH (07:16)
[2018-04-30] MEDS: ALBUTEROL 2.5 MG/3 ML NEB RESP TX SCH (07:22)
[2018-04-30] MEDS: BUDESONIDE 0.5 MG/2 ML NEB RESP TX SCH (07:24)
[2018-04-30] MEDS: LEVOFLOXACIN INJ 750 MG in PREMIX 1 EACH IV SCH (10:10)
[2018-04-30] MEDS: LABETALOL 100 MG TABLET PO SCH (10:13)
[2018-04-30] MEDS: MULTIVITAMIN (OCUVITE) TABLET PO SCH (10:14)
[2018-04-30] MEDS: CLORAZEPATE 3.75 MG TABLET PO SCH (10:16)
[2018-04-30] MEDS: amLODIPine 5 MG TABLET PO SCH (10:16)
[2018-04-30] MEDS: LOSARTAN 25 MG TABLET PO SCH (10:16)
[2018-04-30] MEDS: POTASSIUM CHLORIDE 20 MEQ TABLET PO SCH (10:16)
[2018-04-30] MEDS: PANTOPRAZOLE 40 MG TABLET PO SCH (10:16)
[2018-04-30] MEDS: MONTELUKAST 10 MG TABLET PO SCH (10:16)
[2018-04-30] MEDS: BENZONATATE 100 MG CAPSULE PO SCH (10:16)
[2018-04-30] MEDS: ASPIRIN EC 81 MG TABLET PO SCH (10:17)
[2018-04-30] MEDS: ISOSORBIDE MONONITRATE 60 MG TABLET PO SCH (10:17)
[2018-04-30] MEDS: CLOPIDOGREL 75 MG TABLET PO SCH (10:17)
[2018-04-30] MEDS: POLYETHYLENE GLYCOL POWDER 17 GM PACK PO SCH (10:18)
[2018-04-30] MEDS: guaiFENesin/DM ER 600-30 MG TABLET PO SCH (10:23)
[2018-04-30] MEDS: SODIUM BICARBONATE 650 MG TABLET PO SCH (10:24)
[2018-04-30 12:19] VITALS: BP 146/80
== END 2018-04-30 13:50 | disposition home or self-care (01) | DRG 178 ==
LOC: N.2E → SUATTDRO 09:20 → N.2E 04-30 13:49
PROVIDERS: ADMIT Internal Medicine; ATTEND Internal Medicine

== ENCOUNTER 2018-08-27 14:57 | Inpatient (IN) ==
[2018-08-27] MEDS ORDERED: ALBUTEROL/IPRATROPIUM 3 ML NEB RESP TX STA (15:37)
[2018-08-27 17:07] LABS: Basophils % 0.1 % (0.0-0.8); Eosinophils % 0.1 % (0.00-10.9); Hematocrit 37.2 VOL% (35.7-47.0); Hemoglobin 12.7 GM/DL (12.0-16.0); Immature Granulocytes % 0.4 %; Immature Granulocytes Absolute 0.03 #; Lymphocytes # 0.3 10*3/uL (1.4-4.0); Mean Corpuscular HGB Conc 34.1 GM/DL (32-36); Mean Corpuscular Hemoglobin 34 PG (27-34); Mean Corpuscular Volume 98.7 FL (87-102); Monocytes # 0.3 10*3/uL (0.11-0.8); Monocytes % 3.4 % (1.7-12.7); Neutrophils # 6.7 10*3/uL (1.4-7.4); Platelet Count 181 T/CUMM (130-400); Red Blood Count 3.77 MC/CUMM (3.8-5.5); Red Cell Distribution Width 12.9 % (9.3-17.3); White Blood Count 7.3 T/CUMM (4-12)
[2018-08-27 17:26] LABS: Alanine Aminotransferase 17 U/L (13-56); Albumin 3.7 G/DL (3.4-5.0); Alkaline Phosphatase 81 U/L (45-117); Aspartate Amino Transferase 15 U/L (0-37); Bilirubin,Total < 0.39 MG/DL (0.2-1.0); Blood Urea Nitrogen 12 MG/DL (7-18); Calcium 9.4 MG/DL (8.5-10.1); Glucose 111 MG/DL (74-106); Osmolality,Calculated 255.2 MOS/KG (273-304); Potassium 3.9 MMOL/L (3.5-5.1); Sodium 127 MMOL/L (136-145)
[2018-08-27 17:27] LABS: Lymphocytes 1 % (20-55); Platelet Estimate Normal; Segmented Neutrophils 95 % (50-85); Total Cells Counted 100
[2018-08-27 17:28] LABS: Macrocytosis Slight
[2018-08-27] MEDS ORDERED: CEFTAROLINE 600 MG in SODIUM CHLORIDE 0.9% 100 ML IV STA (18:03)
[2018-08-27] MEDS ORDERED: ACETAMINOPHEN 325 MG TABLET PO PRN (18:06)
[2018-08-27] MEDS ORDERED: ONDANSETRON 4 MG/2 ML VIAL IV PRN (18:06)
[2018-08-27] MEDS ORDERED: FUROSEMIDE 40 MG TABLET PO PRN (18:14)
[2018-08-27] MEDS ORDERED: hydrALAZINE 20 MG/1 ML VIAL IV PRN (19:45)
[2018-08-27] MEDS: ENOXAPARIN 40 MG/0.4 ML SYRINGE SUBCUT SCH (20:10)
[2018-08-27] MEDS: PANTOPRAZOLE 40 MG TABLET PO SCH (20:11)
[2018-08-27] MEDS: RANOLAZINE 500 MG TABLET PO SCH (20:11)
[2018-08-27] MEDS: IRON (CARBONYL)/VIT C/B12/FA TABLET PO SCH ×2 (20:11→20:13)
[2018-08-27] MEDS: SIMVASTATIN 20 MG TABLET PO SCH (20:11)
[2018-08-27] MEDS: MULTIVITAMIN (OCUVITE) TABLET PO SCH (20:11)
[2018-08-27] MEDS: CALCIUM (CARBONATE)/VITAMIN D 600 MG-400 UNIT TABLET PO SCH (20:11)
[2018-08-27] MEDS: predniSONE 20 MG TABLET PO SCH (20:13)
[2018-08-27] MEDS: ALBUTEROL/IPRATROPIUM 3 ML NEB RESP TX SCH (21:16)
[2018-08-28] MEDS: ALBUTEROL/IPRATROPIUM 3 ML NEB RESP TX SCH ×5 (00:38→19:29)
[2018-08-28] MEDS ORDERED: CEFTAROLINE 600 MG in SODIUM CHLORIDE 0.9% 100 ML IV SCH (06:00)
[2018-08-28] MEDS: LEVOTHYROXINE 75 MCG TABLET PO SCH (06:45)
[2018-08-28 06:48] LABS: Basophils % 0.1 % (0.0-0.8); Eosinophils % 0.1 % (0.00-10.9); Hematocrit 36.1 VOL% (35.7-47.0); Hemoglobin 12.3 GM/DL (12.0-16.0); Immature Granulocytes % 0.6 %; Immature Granulocytes Absolute 0.04 #; Lymphocytes # 0.4 10*3/uL (1.4-4.0); Lymphocytes % 5.7 % (21.3-54.2); Mean Corpuscular HGB Conc 34.1 GM/DL (32-36); Mean Corpuscular Hemoglobin 34 PG (27-34); Mean Corpuscular Volume 98.6 FL (87-102); Mean Platelet Volume 11.9 FL (9.6-12.0); Monocytes # 0.4 10*3/uL (0.11-0.8); Monocytes % 6.4 % (1.7-12.7); Neutrophils # 5.8 10*3/uL (1.4-7.4); Neutrophils % 87.1 % (38.7-73.9); Platelet Count 173 T/CUMM (130-400); Red Blood Count 3.66 MC/CUMM (3.8-5.5); Red Cell Distribution Width 12.8 % (9.3-17.3); White Blood Count 6.7 T/CUMM (4-12)
[2018-08-28 07:14] LABS: Albumin 3.3 G/DL (3.4-5.0); Bilirubin,Total 0.6 MG/DL (0.2-1.0); Calcium 9.5 MG/DL (8.5-10.1); Osmolality,Calculated 259.8 MOS/KG (273-304); Potassium 3.6 MMOL/L (3.5-5.1); Total Protein 6.3 G/DL (6.4-8.3)
[2018-08-28] MEDS ORDERED: PANTOPRAZOLE 40 MG TABLET PO SCH (09:00)
[2018-08-28] MEDS: LABETALOL 100 MG TABLET PO SCH (09:38)
[2018-08-28] MEDS: POTASSIUM CHLORIDE 20 MEQ TABLET PO SCH (09:38)
[2018-08-28] MEDS: MONTELUKAST 10 MG TABLET PO SCH (09:38)
[2018-08-28] MEDS: CHOLECALCIFEROL 5,000 UNIT TABLET PO SCH (09:38)
[2018-08-28] MEDS: RANOLAZINE 500 MG TABLET PO SCH ×2 (09:38→21:22)
[2018-08-28] MEDS: MULTIVITAMIN (OCUVITE) TABLET PO SCH ×2 (09:38→21:22)
[2018-08-28] MEDS: cefTRIAXone 1,000 MG in SYRINGE 1 EACH IV SCH (09:38)
[2018-08-28] MEDS: ISOSORBIDE MONONITRATE 60 MG TABLET PO SCH (09:39)
[2018-08-28] MEDS: CLOPIDOGREL 75 MG TABLET PO SCH (09:39)
[2018-08-28] MEDS: LOSARTAN 25 MG TABLET PO SCH (09:39)
[2018-08-28] MEDS: CALCIUM (CARBONATE)/VITAMIN D 600 MG-400 UNIT TABLET PO SCH ×2 (09:39→21:22)
[2018-08-28] MEDS: predniSONE 20 MG TABLET PO SCH ×2 (09:39→21:22)
[2018-08-28] MEDS: PANTOPRAZOLE 40 MG TABLET PO SCH ×2 (09:40→21:22)
[2018-08-28] MEDS: AZITHROMYCIN INJ 500 MG in SODIUM CHLORIDE 0.9% 250 ML IV SCH (09:49)
[2018-08-28] MEDS: IRON (CARBONYL)/VIT C/B12/FA TABLET PO SCH ×2 (11:51→21:22)
[2018-08-28] MEDS: SODIUM BICARBONATE 650 MG TABLET PO SCH (11:51)
[2018-08-28] MEDS ORDERED: ALBUTEROL 2.5 MG/3 ML NEB RESP TX PRN (11:53)
[2018-08-28] MEDS ORDERED: MAGNESIUM HYDROXIDE SUSP 30 ML UDCUP PO PRN (17:47)
[2018-08-28] MEDS ORDERED: BISACODYL 10 MG SUPP RECTAL PRN (17:47)
[2018-08-28] MEDS ORDERED: BISACODYL 5 MG TABLET PO PRN (17:47)
[2018-08-28] MEDS: SIMVASTATIN 20 MG TABLET PO SCH (21:22)
[2018-08-28] MEDS: HYDROcodone/CHLORPHENIRAMINE ER 5 ML UDCUP PO SCH (21:23)
[2018-08-28] MEDS: ENOXAPARIN 40 MG/0.4 ML SYRINGE SUBCUT SCH (21:23)
[2018-08-29 05:27] LABS: Hematocrit 34.8 VOL% (35.7-47.0); Hemoglobin 11.9 GM/DL (12.0-16.0); Immature Granulocytes % 0.9 %; Immature Granulocytes Absolute 0.07 #; Lymphocytes # 0.3 10*3/uL (1.4-4.0); Lymphocytes % 3.4 % (21.3-54.2); Mean Corpuscular HGB Conc 34.2 GM/DL (32-36); Mean Corpuscular Hemoglobin 34 PG (27-34); Mean Corpuscular Volume 98.6 FL (87-102); Mean Platelet Volume 12.4 FL (9.6-12.0); Monocytes # 0.3 10*3/uL (0.11-0.8); Neutrophils # 6.8 10*3/uL (1.4-7.4); Neutrophils % 91.7 % (38.7-73.9); Platelet Count 183 T/CUMM (130-400); Red Blood Count 3.53 MC/CUMM (3.8-5.5); White Blood Count 7.4 T/CUMM (4-12)
[2018-08-29 05:41] LABS: Calcium 9.1 MG/DL (8.5-10.1); Osmolality,Calculated 264.7 MOS/KG (273-304); Potassium 3.5 MMOL/L (3.5-5.1)
[2018-08-29 05:59] LABS: Lymphocytes 1 % (20-55); Segmented Neutrophils 97 % (50-85); Total Cells Counted 100
[2018-08-29 06:00] LABS: Hypochromasia Slight; Macrocytosis Slight; Platelet Estimate Adequate
[2018-08-29] MEDS: LEVOTHYROXINE 75 MCG TABLET PO SCH (06:10)
[2018-08-29] MEDS: ALBUTEROL/IPRATROPIUM 3 ML NEB RESP TX SCH ×4 (07:20→19:47)
[2018-08-29] MEDS: cefTRIAXone 1,000 MG in SYRINGE 1 EACH IV SCH (09:47)
[2018-08-29] MEDS: PANTOPRAZOLE 40 MG TABLET PO SCH ×2 (09:48→21:10)
[2018-08-29] MEDS: IRON (CARBONYL)/VIT C/B12/FA TABLET PO SCH ×2 (09:48→21:09)
[2018-08-29] MEDS: ISOSORBIDE MONONITRATE 60 MG TABLET PO SCH (09:49)
[2018-08-29] MEDS: POTASSIUM CHLORIDE 20 MEQ TABLET PO SCH (09:49)
[2018-08-29] MEDS: CHOLECALCIFEROL 5,000 UNIT TABLET PO SCH (09:49)
[2018-08-29] MEDS: SODIUM BICARBONATE 650 MG TABLET PO SCH (09:49)
[2018-08-29] MEDS: MONTELUKAST 10 MG TABLET PO SCH (09:49)
[2018-08-29] MEDS: RANOLAZINE 500 MG TABLET PO SCH ×2 (09:49→21:10)
[2018-08-29] MEDS: LOSARTAN 25 MG TABLET PO SCH (09:49)
[2018-08-29] MEDS: CLOPIDOGREL 75 MG TABLET PO SCH (09:49)
[2018-08-29] MEDS: LABETALOL 100 MG TABLET PO SCH (09:49)
[2018-08-29] MEDS: CALCIUM (CARBONATE)/VITAMIN D 600 MG-400 UNIT TABLET PO SCH ×2 (09:49→21:10)
[2018-08-29] MEDS: POLYETHYLENE GLYCOL POWDER 17 GM PACK PO SCH (12:04)
[2018-08-29] MEDS: predniSONE 20 MG TABLET PO SCH ×2 (12:04→21:09)
[2018-08-29] MEDS: AZITHROMYCIN INJ 500 MG in SODIUM CHLORIDE 0.9% 250 ML IV SCH (12:04)
[2018-08-29] MEDS: MULTIVITAMIN (OCUVITE) TABLET PO SCH ×2 (12:04→21:09)
[2018-08-29] MEDS: HYDROcodone/CHLORPHENIRAMINE ER 5 ML UDCUP PO SCH (21:09)
[2018-08-29] MEDS: ENOXAPARIN 40 MG/0.4 ML SYRINGE SUBCUT SCH (21:09)
[2018-08-29] MEDS: SIMVASTATIN 20 MG TABLET PO SCH (21:10)
[2018-08-30 05:42] LABS: Basophils % 0.1 % (0.0-0.8); Hematocrit 33.7 VOL% (35.7-47.0); Hemoglobin 11.4 GM/DL (12.0-16.0); Immature Granulocytes % 0.5 %; Immature Granulocytes Absolute 0.04 #; Lymphocytes # 0.4 10*3/uL (1.4-4.0); Lymphocytes % 4.7 % (21.3-54.2); Mean Corpuscular HGB Conc 33.8 GM/DL (32-36); Mean Corpuscular Hemoglobin 34 PG (27-34); Mean Corpuscular Volume 99.1 FL (87-102); Mean Platelet Volume 11.9 FL (9.6-12.0); Monocytes # 0.4 10*3/uL (0.11-0.8); Monocytes % 4.6 % (1.7-12.7); Neutrophils # 6.8 10*3/uL (1.4-7.4); Neutrophils % 90.1 % (38.7-73.9); Platelet Count 193 T/CUMM (130-400); Red Cell Distribution Width 12.9 % (9.3-17.3); White Blood Count 7.6 T/CUMM (4-12)
[2018-08-30 06:04] LABS: Calcium 9.1 MG/DL (8.5-10.1); Osmolality,Calculated 259.9 MOS/KG (273-304)
[2018-08-30] MEDS: LEVOTHYROXINE 75 MCG TABLET PO SCH (06:15)
[2018-08-30 06:19] LABS: Hypochromasia Slight; Lymphocytes 6 % (20-55); Platelet Estimate Normal; Segmented Neutrophils 92 % (50-85); Total Cells Counted 100
[2018-08-30] MEDS: ALBUTEROL/IPRATROPIUM 3 ML NEB RESP TX SCH ×4 (07:35→19:10)
[2018-08-30] MEDS: POLYETHYLENE GLYCOL POWDER 17 GM PACK PO SCH (10:03)
[2018-08-30] MEDS: CHOLECALCIFEROL 5,000 UNIT TABLET PO SCH (10:03)
[2018-08-30] MEDS: CALCIUM (CARBONATE)/VITAMIN D 600 MG-400 UNIT TABLET PO SCH ×2 (10:03→21:35)
[2018-08-30] MEDS: CLOPIDOGREL 75 MG TABLET PO SCH (10:03)
[2018-08-30] MEDS: LOSARTAN 25 MG TABLET PO SCH (10:03)
[2018-08-30] MEDS: RANOLAZINE 500 MG TABLET PO SCH ×2 (10:04→21:35)
[2018-08-30] MEDS: MONTELUKAST 10 MG TABLET PO SCH (10:04)
[2018-08-30] MEDS: ISOSORBIDE MONONITRATE 60 MG TABLET PO SCH (10:04)
[2018-08-30] MEDS: POTASSIUM CHLORIDE 20 MEQ TABLET PO SCH (10:04)
[2018-08-30] MEDS: AZITHROMYCIN 250 MG TABLET PO SCH (10:04)
[2018-08-30] MEDS: PANTOPRAZOLE 40 MG TABLET PO SCH ×2 (10:05→21:35)
[2018-08-30] MEDS: MULTIVITAMIN (OCUVITE) TABLET PO SCH ×2 (10:05→21:35)
[2018-08-30] MEDS: IRON (CARBONYL)/VIT C/B12/FA TABLET PO SCH ×2 (10:10→21:35)
[2018-08-30] MEDS: cefTRIAXone 1,000 MG in SYRINGE 1 EACH IV SCH (10:20)
[2018-08-30] MEDS: LABETALOL 100 MG TABLET PO SCH (10:30)
[2018-08-30] MEDS: SIMVASTATIN 20 MG TABLET PO SCH (21:35)
[2018-08-30] MEDS: HYDROcodone/CHLORPHENIRAMINE ER 5 ML UDCUP PO SCH (21:35)
[2018-08-30] MEDS: ENOXAPARIN 40 MG/0.4 ML SYRINGE SUBCUT SCH (21:35)
[2018-08-31 05:51] LABS: Calcium 8.9 MG/DL (8.5-10.1); Osmolality,Calculated 259.8 MOS/KG (273-304); Potassium 3.5 MMOL/L (3.5-5.1)
[2018-08-31] MEDS: LEVOTHYROXINE 75 MCG TABLET PO SCH (06:58)
[2018-08-31 07:15] LABS: Basophils % 0.6 % (0.0-0.8); Eosinophils # 0.2 10*3/uL (0.0-0.87); Hematocrit 34.6 VOL% (35.7-47.0); Hemoglobin 11.4 GM/DL (12.0-16.0); Immature Granulocytes % 0.8 %; Immature Granulocytes Absolute 0.05 #; Lymphocytes # 0.9 10*3/uL (1.4-4.0); Lymphocytes % 13.7 % (21.3-54.2); Mean Corpuscular HGB Conc 32.9 GM/DL (32-36); Mean Corpuscular Hemoglobin 33 PG (27-34); Mean Corpuscular Volume 101.2 FL (87-102); Mean Platelet Volume 12.1 FL (9.6-12.0); Monocytes # 0.8 10*3/uL (0.11-0.8); Monocytes % 11.3 % (1.7-12.7); Neutrophils # 4.7 10*3/uL (1.4-7.4); Neutrophils % 70.6 % (38.7-73.9); Platelet Count 163 T/CUMM (130-400); Red Blood Count 3.42 MC/CUMM (3.8-5.5); Red Cell Distribution Width 13.2 % (9.3-17.3); White Blood Count 6.6 T/CUMM (4-12)
[2018-08-31] MEDS: ALBUTEROL/IPRATROPIUM 3 ML NEB RESP TX SCH ×4 (07:40→19:51)
[2018-08-31] MEDS: MONTELUKAST 10 MG TABLET PO SCH (09:37)
[2018-08-31] MEDS: RANOLAZINE 500 MG TABLET PO SCH ×2 (09:37→22:33)
[2018-08-31] MEDS: AZITHROMYCIN 250 MG TABLET PO SCH (09:37)
[2018-08-31] MEDS: ISOSORBIDE MONONITRATE 60 MG TABLET PO SCH (09:37)
[2018-08-31] MEDS: POTASSIUM CHLORIDE 20 MEQ TABLET PO SCH (09:37)
[2018-08-31] MEDS: CALCIUM (CARBONATE)/VITAMIN D 600 MG-400 UNIT TABLET PO SCH ×2 (09:37→22:33)
[2018-08-31] MEDS: IRON (CARBONYL)/VIT C/B12/FA TABLET PO SCH ×2 (09:37→22:32)
[2018-08-31] MEDS: LABETALOL 100 MG TABLET PO SCH (09:37)
[2018-08-31] MEDS: CLOPIDOGREL 75 MG TABLET PO SCH (09:38)
[2018-08-31] MEDS: PANTOPRAZOLE 40 MG TABLET PO SCH ×2 (09:38→22:33)
[2018-08-31] MEDS: LOSARTAN 25 MG TABLET PO SCH (09:38)
[2018-08-31] MEDS: POLYETHYLENE GLYCOL POWDER 17 GM PACK PO SCH (09:38)
[2018-08-31] MEDS: cefTRIAXone 1,000 MG in SYRINGE 1 EACH IV SCH (09:38)
[2018-08-31] MEDS: MULTIVITAMIN (OCUVITE) TABLET PO SCH ×2 (09:38→22:33)
[2018-08-31] MEDS: CHOLECALCIFEROL 5,000 UNIT TABLET PO SCH (09:38)
[2018-08-31] MEDS: SIMVASTATIN 20 MG TABLET PO SCH (22:33)
[2018-08-31] MEDS: HYDROcodone/CHLORPHENIRAMINE ER 5 ML UDCUP PO SCH (22:33)
[2018-08-31] MEDS: ENOXAPARIN 40 MG/0.4 ML SYRINGE SUBCUT SCH (22:33)
[2018-09-01 05:26] LABS: Basophils # 0.1 10*3/uL (0.0-0.2); Basophils % 0.7 % (0.0-0.8); Eosinophils # 0.4 10*3/uL (0.0-0.87); Eosinophils % 5.5 % (0.00-10.9); Hematocrit 34.7 VOL% (35.7-47.0); Hemoglobin 11.6 GM/DL (12.0-16.0); Immature Granulocytes % 0.4 %; Immature Granulocytes Absolute 0.03 #; Lymphocytes # 0.8 10*3/uL (1.4-4.0); Lymphocytes % 11.5 % (21.3-54.2); Mean Corpuscular HGB Conc 33.4 GM/DL (32-36); Mean Corpuscular Hemoglobin 34 PG (27-34); Mean Corpuscular Volume 100.6 FL (87-102); Mean Platelet Volume 11.9 FL (9.6-12.0); Monocytes # 0.8 10*3/uL (0.11-0.8); Monocytes % 11.2 % (1.7-12.7); Neutrophils # 4.8 10*3/uL (1.4-7.4); Neutrophils % 70.7 % (38.7-73.9); Platelet Count 178 T/CUMM (130-400); Red Blood Count 3.45 MC/CUMM (3.8-5.5); Red Cell Distribution Width 12.9 % (9.3-17.3); White Blood Count 6.9 T/CUMM (4-12)
[2018-09-01 05:38] LABS: Calcium 9.3 MG/DL (8.5-10.1); Osmolality,Calculated 258.8 MOS/KG (273-304); Potassium 4.4 MMOL/L (3.5-5.1)
[2018-09-01] MEDS: LEVOTHYROXINE 75 MCG TABLET PO SCH (07:15)
[2018-09-01] MEDS: ALBUTEROL/IPRATROPIUM 3 ML NEB RESP TX SCH (07:33)
[2018-09-01 08:20] VITALS: BP 178/68
[2018-09-01] MEDS: PANTOPRAZOLE 40 MG TABLET PO SCH (08:35)
[2018-09-01] MEDS: CLOPIDOGREL 75 MG TABLET PO SCH (08:35)
[2018-09-01] MEDS: POTASSIUM CHLORIDE 20 MEQ TABLET PO SCH (08:35)
[2018-09-01] MEDS: RANOLAZINE 500 MG TABLET PO SCH (08:35)
[2018-09-01] MEDS: ISOSORBIDE MONONITRATE 60 MG TABLET PO SCH (08:35)
[2018-09-01] MEDS: AZITHROMYCIN 250 MG TABLET PO SCH (08:36)
[2018-09-01] MEDS: MULTIVITAMIN (OCUVITE) TABLET PO SCH (08:36)
[2018-09-01] MEDS: LABETALOL 100 MG TABLET PO SCH (08:36)
[2018-09-01] MEDS: CHOLECALCIFEROL 5,000 UNIT TABLET PO SCH (08:36)
[2018-09-01] MEDS: CALCIUM (CARBONATE)/VITAMIN D 600 MG-400 UNIT TABLET PO SCH (08:36)
[2018-09-01] MEDS: IRON (CARBONYL)/VIT C/B12/FA TABLET PO SCH (08:36)
[2018-09-01] MEDS: MONTELUKAST 10 MG TABLET PO SCH (08:36)
[2018-09-01] MEDS: LOSARTAN 25 MG TABLET PO SCH (08:37)
[2018-09-01] MEDS: cefTRIAXone 1,000 MG in SYRINGE 1 EACH IV SCH (08:37)
[2018-09-01] MEDS: POLYETHYLENE GLYCOL POWDER 17 GM PACK PO SCH (08:38)
== END 2018-09-01 11:41 | disposition home health service (06) | DRG 190 ==
LOC: EDBD → EDUNIT# → N.ED 14:57 → SUATTDRO 18:06 → N.EDINP 18:06 → N.2E 19:33
PROVIDERS: ADMIT Internal Medicine; ATTEND Internal Medicine

== ENCOUNTER 2019-02-18 16:28 | Observation (INO) ==
[2019-02-18] MEDS ORDERED: ONDANSETRON 4 MG/2 ML VIAL IV STA (16:53)
[2019-02-18] MEDS ORDERED: PANTOPRAZOLE 40 MG VIAL IV STA (16:53)
[2019-02-18] MEDS ORDERED: NITROGLYCERIN 2% OINT 1 INCH/GM PACK TOP STA (16:53)
[2019-02-18 16:57] LABS: Basophils % 0.3 % (0.0-0.8); Eosinophils # 0.1 10*3/uL (0.0-0.87); Eosinophils % 0.9 % (0.00-10.9); Hematocrit 41.1 VOL% (35.7-47.0); Hemoglobin 13.8 GM/DL (12.0-16.0); Immature Granulocytes % 0.3 %; Immature Granulocytes Absolute 0.03 #; Lymphocytes # 0.4 10*3/uL (1.4-4.0); Lymphocytes % 3.7 % (21.3-54.2); Mean Corpuscular HGB Conc 33.6 GM/DL (32-36); Mean Corpuscular Volume 102.8 FL (87-102); Mean Platelet Volume 11.3 FL (9.6-12.0); Neutrophils % 85.8 % (38.7-73.9); Platelet Count 172 T/CUMM (130-400); Red Cell Distribution Width 13.2 % (9.3-17.3); White Blood Count 11.5 T/CUMM (4-12)
[2019-02-18] MEDS ORDERED: ALBUTEROL/IPRATROPIUM 3 ML NEB RESP TX STA (16:59)
[2019-02-18 17:21] LABS: Bilirubin,Total 0.8 MG/DL (0.2-1.0); Calcium 9.2 MG/DL (8.5-10.1); Osmolality,Calculated 264.4 MOS/KG (273-304); Total Protein 7.5 G/DL (6.4-8.3)
[2019-02-18 17:30] LABS: Apearance,Urine CLEAR (Clear); Bilirubin,Urine Negative (Negative); Blood, Urine Small mg/dL (Negative); Glucose,Urine (UA) Negative (Negative); Ketones,Urine 5 mg/dL (Negative); Mucus,Urine Occasional /LPF (Occasional); Nitrite,Urine Negative (Negative); Protein,Urine Negative; RBC,Urine 3 /HPF (0-4); Squamous Epithelial Cell,Urine Occasional /HPF (0-10); Urine Color Colorless (Yellow); Urine Specific Gravity 1.004 (1.001-1.035); Urine Urobilinogen < 2.0 EU/DL (0.2-1.0)
[2019-02-18 17:41] LABS: INR 0.9; PT Patient Result 10.1 SECS; Partial Thromboplastin Time 26.3 SECS (0-40)
[2019-02-18] MEDS ORDERED: fentaNYL 100 MCG/2 ML VIAL ONE (17:43)
[2019-02-18] MEDS ORDERED: FUROSEMIDE 40 MG/4 ML VIAL ONE (17:43)
[2019-02-18] MEDS ORDERED: fentaNYL 100 MCG/2 ML VIAL IV STA (17:43)
[2019-02-18] MEDS ORDERED: FUROSEMIDE 40 MG/4 ML VIAL IV STA (17:44)
[2019-02-18 17:46] LABS: Troponin I < 0.015 NG/ML (0.00-0.045)
[2019-02-18 17:58] LABS: Band Neutrophils 5 % (0-10); Lymphocytes 3 % (20-55); Segmented Neutrophils 85 % (50-85); Total Cells Counted 100
[2019-02-18 17:59] LABS: Platelet Estimate Normal
[2019-02-18] MEDS ORDERED: LORazepam 2 MG/1 ML VIAL ONE (18:19)
[2019-02-18 18:39] LABS: Barbiturates Screen,Urine Negative (Negative); Benzodiazepines Screen,Urine Negative (Negative); Cannabinoid Screen,Urine Negative (Negative); Opiate Screen,Urine Negative (Negative); Phencyclidine Screen,Urine Negative (Negative)
[2019-02-18] MEDS ORDERED: LORazepam 2 MG/1 ML VIAL IV STA (18:49)
[2019-02-18] MEDS ORDERED: ONDANSETRON 4 MG/2 ML VIAL IV PRN (19:57)
[2019-02-18] MEDS ORDERED: MORPHINE 4 MG/1 ML VIAL IV STA (19:58)
[2019-02-18] MEDS ORDERED: NITROGLYCERIN SL 0.4 MG TABLET SL PRN (20:09)
[2019-02-18] MEDS ORDERED: ALBUTEROL/IPRATROPIUM 3 ML NEB RESP TX PRN (20:09)
[2019-02-18] MEDS ORDERED: hydrALAZINE 20 MG/1 ML VIAL IV PRN (20:57)
[2019-02-18 21:51] LABS: Hematocrit 38.8 VOL% (35.7-47.0)
[2019-02-18] MEDS: SUCRALFATE 1 GM/10 ML UDCUP PO SCH (23:50)
[2019-02-18] MEDS: valACYclovir 500 MG TABLET PO SCH (23:51)
[2019-02-18] MEDS: RANOLAZINE 500 MG TABLET PO SCH (23:51)
[2019-02-18] MEDS: NITROGLYCERIN 2% OINT 1 INCH/GM PACK TOP SCH (23:51)
[2019-02-18] MEDS: CALCIUM (CARBONATE)/VITAMIN D 600 MG-400 UNIT TABLET PO SCH (23:51)
[2019-02-18] MEDS: PANTOPRAZOLE 40 MG TABLET PO SCH (23:52)
[2019-02-18] MEDS: chlordiazePOXIDE 10 MG CAPSULE PO SCH (23:52)
[2019-02-18] MEDS: MULTIVITAMIN (OCUVITE) TABLET PO SCH (23:52)
[2019-02-18] MEDS: SIMVASTATIN 10 MG TABLET PO SCH (23:52)
[2019-02-19] MEDS: POLYSACCHARIDE IRON COMPLEX PO SCH ×2 (00:02→09:47)
[2019-02-19 05:16] LABS: Basophils % 0.3 % (0.0-0.8); Eosinophils % 0.1 % (0.00-10.9); Hematocrit 36.8 VOL% (35.7-47.0); Hemoglobin 12.1 GM/DL (12.0-16.0); Immature Granulocytes % 0.6 %; Immature Granulocytes Absolute 0.08 #; Lymphocytes # 0.3 10*3/uL (1.4-4.0); Lymphocytes % 2.5 % (21.3-54.2); Mean Corpuscular HGB Conc 32.9 GM/DL (32-36); Mean Corpuscular Volume 103.7 FL (87-102); Mean Platelet Volume 12.2 FL (9.6-12.0); Monocytes % 11.9 % (1.7-12.7); Neutrophils % 84.6 % (38.7-73.9); Platelet Count 165 T/CUMM (130-400); Red Blood Count 3.55 MC/CUMM (3.8-5.5); Red Cell Distribution Width 13.4 % (9.3-17.3)
[2019-02-19 05:38] LABS: Anisocytosis Slight; Lymphocytes 1 % (20-55); Segmented Neutrophils 86 % (50-85); Stomatocytes 1+; Total Cells Counted 100
[2019-02-19 05:39] LABS: Macrocytosis Slight
[2019-02-19 05:40] LABS: Hypochromasia Slight; Platelet Estimate Normal
[2019-02-19 06:13] LABS: Albumin 3.5 G/DL (3.4-5.0); Calcium 9.1 MG/DL (8.5-10.1); Osmolality,Calculated 267.4 MOS/KG (273-304); Risk Ratio 1.68; Thyroid Stimulating Hormone 4.26 uIU/ml (0.358-3.74); Total Protein 6.6 G/DL (6.4-8.3); VLDL CHOLESTEROL 9.2 MG/DL
[2019-02-19] MEDS ORDERED: PANTOPRAZOLE 40 MG TABLET PO SCH (09:00)
[2019-02-19] MEDS: chlordiazePOXIDE 10 MG CAPSULE PO SCH ×3 (09:42→20:32)
[2019-02-19] MEDS: CALCIUM (CARBONATE)/VITAMIN D 600 MG-400 UNIT TABLET PO SCH ×2 (09:42→20:32)
[2019-02-19] MEDS: LOSARTAN 25 MG TABLET PO SCH (09:42)
[2019-02-19] MEDS: MULTIVITAMIN (OCUVITE) TABLET PO SCH ×2 (09:42→20:31)
[2019-02-19] MEDS: PANTOPRAZOLE 40 MG TABLET PO SCH ×2 (09:42→20:32)
[2019-02-19] MEDS: MONTELUKAST 10 MG TABLET PO SCH (09:42)
[2019-02-19] MEDS: RANOLAZINE 500 MG TABLET PO SCH ×2 (09:42→20:31)
[2019-02-19] MEDS: LABETALOL 100 MG TABLET PO SCH (09:42)
[2019-02-19] MEDS: NITROGLYCERIN 2% OINT 1 INCH/GM PACK TOP SCH ×2 (09:43→20:32)
[2019-02-19] MEDS: SUCRALFATE 1 GM/10 ML UDCUP PO SCH ×4 (09:43→20:31)
[2019-02-19] MEDS: LEVOTHYROXINE 75 MCG TABLET PO SCH (09:43)
[2019-02-19] MEDS: valACYclovir 500 MG TABLET PO SCH ×3 (09:43→20:33)
[2019-02-19 12:58] LABS: Hematocrit 35.4 VOL% (35.7-47.0); Hemoglobin 11.8 GM/DL (12.0-16.0)
[2019-02-19 18:20] LABS: Folate 8.8 NG/ML (5.4-24.0)
[2019-02-19] MEDS: SIMVASTATIN 10 MG TABLET PO SCH (20:32)
[2019-02-20 05:49] LABS: Basophils % 0.1 % (0.0-0.8); Eosinophils # 0.1 10*3/uL (0.0-0.87); Eosinophils % 0.8 % (0.00-10.9); Hematocrit 34.9 VOL% (35.7-47.0); Hemoglobin 11.8 GM/DL (12.0-16.0); Immature Granulocytes % 0.5 %; Immature Granulocytes Absolute 0.04 #; Lymphocytes # 0.4 10*3/uL (1.4-4.0); Lymphocytes % 4.1 % (21.3-54.2); Mean Corpuscular HGB Conc 33.8 GM/DL (32-36); Mean Corpuscular Volume 102.9 FL (87-102); Mean Platelet Volume 12.1 FL (9.6-12.0); Monocytes % 8.7 % (1.7-12.7); Neutrophils % 85.8 % (38.7-73.9); Platelet Count 139 T/CUMM (130-400); Red Blood Count 3.39 MC/CUMM (3.8-5.5); Red Cell Distribution Width 13.4 % (9.3-17.3); White Blood Count 8.5 T/CUMM (4-12)
[2019-02-20 06:01] LABS: Calcium 8.9 MG/DL (8.5-10.1); Osmolality,Calculated 266.7 MOS/KG (273-304)
[2019-02-20 06:15] LABS: Eosinophils 1 % (0-10); Lymphocytes 4 % (20-55); Segmented Neutrophils 83 % (50-85); Total Cells Counted 100
[2019-02-20 06:16] LABS: Hypochromasia 1+; Macrocytosis Slight; Platelet Estimate Normal
[2019-02-20] MEDS ORDERED: LACTATED RINGERS 1,000 ML IV ONE (06:44)
[2019-02-20] MEDS ORDERED: THIAMINE 100 MG TABLET PO SCH (09:00)
[2019-02-20] MEDS ORDERED: FOLIC ACID 1 MG TABLET PO SCH (09:00)
[2019-02-20] MEDS ORDERED: PROPOFOL 200 MG/20 ML VIAL IV ONE (09:00)
[2019-02-20] MEDS ORDERED: LIDOCAINE 1% 5 ML VIAL ONE (09:00)
[2019-02-20 12:50] VITALS: BP 151/070
[2019-02-20] MEDS: chlordiazePOXIDE 10 MG CAPSULE PO SCH ×2 (14:30→14:42)
[2019-02-20] MEDS: valACYclovir 500 MG TABLET PO SCH ×2 (14:30→14:43)
[2019-02-20] MEDS: MONTELUKAST 10 MG TABLET PO SCH (14:30)
[2019-02-20] MEDS: PANTOPRAZOLE 40 MG TABLET PO SCH (14:32)
[2019-02-20] MEDS: LABETALOL 100 MG TABLET PO SCH (14:32)
[2019-02-20] MEDS: RANOLAZINE 500 MG TABLET PO SCH (14:32)
[2019-02-20] MEDS: LEVOTHYROXINE 75 MCG TABLET PO SCH (14:36)
[2019-02-20] MEDS: MULTIVITAMIN (OCUVITE) TABLET PO SCH (14:36)
[2019-02-20] MEDS: SUCRALFATE 1 GM/10 ML UDCUP PO SCH ×2 (14:37)
[2019-02-20] MEDS: NITROGLYCERIN 2% OINT 1 INCH/GM PACK TOP SCH (14:37)
[2019-02-20] MEDS: CALCIUM (CARBONATE)/VITAMIN D 600 MG-400 UNIT TABLET PO SCH (14:37)
[2019-02-20] MEDS: LOSARTAN 25 MG TABLET PO SCH (14:37)
== END 2019-02-20 15:32 | disposition home or self-care (01) ==
LOC: EDUNIT# → EDBD → N.EDINP 16:28 → N.ED 16:28 → N.TELES 22:53
PROVIDERS: ADMIT Internal Medicine; ATTEND Internal Medicine

== ENCOUNTER 2019-02-25 12:00 | Inpatient (IN) ==
[2019-02-25] MEDS ORDERED: methylPREDNISolone SOD SUC 125 MG/2 ML VIAL IV STA (12:24)
[2019-02-25] MEDS ORDERED: ALBUTEROL NEB SOLN 5 MG/ML 20 ML/BOTTLE RESP TX SCH (12:30)
[2019-02-25 12:38] LABS: Basophils % 0.6 % (0.0-0.8); Eosinophils # 0.1 10*3/uL (0.0-0.87); Eosinophils % 1.4 % (0.00-10.9); Hematocrit 39.3 VOL% (35.7-47.0); Hemoglobin 12.9 GM/DL (12.0-16.0); Immature Granulocytes % 0.3 %; Immature Granulocytes Absolute 0.02 #; Lymphocytes # 0.4 10*3/uL (1.4-4.0); Lymphocytes % 5.7 % (21.3-54.2); Mean Corpuscular HGB Conc 32.8 GM/DL (32-36); Mean Corpuscular Volume 104.8 FL (87-102); Monocytes % 12.6 % (1.7-12.7); Neutrophils % 79.4 % (38.7-73.9); Platelet Count 247 T/CUMM (130-400); Red Blood Count 3.75 MC/CUMM (3.8-5.5); Red Cell Distribution Width 12.8 % (9.3-17.3)
[2019-02-25 12:54] LABS: INR 0.9; PT Patient Result 9.6 SECS; Partial Thromboplastin Time 27.3 SECS (0-40)
[2019-02-25 12:57] LABS: Albumin 3.3 G/DL (3.4-5.0); Bilirubin,Total 0.4 MG/DL (0.2-1.0); Calcium 9.4 MG/DL (8.5-10.1); Osmolality,Calculated 265.2 MOS/KG (273-304); Total Protein 6.8 G/DL (6.4-8.3)
[2019-02-25] MEDS ORDERED: ACETAMINOPHEN 325 MG TABLET PO PRN (16:03)
[2019-02-25] MEDS ORDERED: ONDANSETRON 4 MG/2 ML VIAL IV PRN (16:03)
[2019-02-25] MEDS ORDERED: NITROGLYCERIN SL 0.4 MG TABLET SL PRN (16:07)
[2019-02-25] MEDS: LEVOFLOXACIN INJ 750 MG in PREMIX 1 EACH IV SCH (17:59)
[2019-02-25 19:30] LABS: Apearance,Urine CLEAR (Clear); Bacteria,Urine Occasional /HPF (Few); Bilirubin,Urine Negative (Negative); Blood, Urine Moderate mg/dL (Negative); Glucose,Urine (UA) 50 mg/dL (Negative); Ketones,Urine 20 mg/dL (Negative); Nitrite,Urine Negative (Negative); Protein,Urine 30 MG/DL; RBC,Urine 2 /HPF (0-4); Squamous Epithelial Cell,Urine Occasional /HPF (0-10); Urine Color Yellow (Yellow); Urine Specific Gravity 1.008 (1.001-1.035); WBC,Urine 2 /HPF (0-6)
[2019-02-25] MEDS: ALBUTEROL/IPRATROPIUM 3 ML NEB RESP TX SCH (19:53)
[2019-02-25] MEDS: ENOXAPARIN 40 MG/0.4 ML SYRINGE SUBCUT SCH (21:17)
[2019-02-25] MEDS: MULTIVITAMIN (OCUVITE) TABLET PO SCH (21:18)
[2019-02-25] MEDS: RANOLAZINE 500 MG TABLET PO SCH (21:18)
[2019-02-25] MEDS: SIMVASTATIN 10 MG TABLET PO SCH (21:18)
[2019-02-25] MEDS: CALCIUM (CARBONATE)/VITAMIN D 600 MG-400 UNIT TABLET PO SCH (21:19)
[2019-02-25] MEDS: POLYSACCHARIDE IRON COMPLEX PO SCH (21:22)
[2019-02-25] MEDS: PANTOPRAZOLE 40 MG TABLET PO SCH (21:22)
[2019-02-26] MEDS: ALBUTEROL/IPRATROPIUM 3 ML NEB RESP TX SCH ×4 (01:06→19:09)
[2019-02-26] MEDS: methylPREDNISolone SOD SUC 40 MG/1 ML VIAL IV SCH ×2 (01:59→14:26)
[2019-02-26 05:48] LABS: Basophils % 0.2 % (0.0-0.8); Hematocrit 34.4 VOL% (35.7-47.0); Hemoglobin 11.2 GM/DL (12.0-16.0); Immature Granulocytes % 0.5 %; Immature Granulocytes Absolute 0.03 #; Lymphocytes # 0.2 10*3/uL (1.4-4.0); Lymphocytes % 3.2 % (21.3-54.2); Mean Corpuscular HGB Conc 32.6 GM/DL (32-36); Mean Corpuscular Volume 104.9 FL (87-102); Mean Platelet Volume 11.1 FL (9.6-12.0); Monocytes % 9.5 % (1.7-12.7); Neutrophils % 86.6 % (38.7-73.9); Platelet Count 252 T/CUMM (130-400); Red Blood Count 3.28 MC/CUMM (3.8-5.5); Red Cell Distribution Width 12.5 % (9.3-17.3); White Blood Count 6.3 T/CUMM (4-12)
[2019-02-26 06:14] LABS: Hypochromasia 1+; Lymphocytes 5 % (20-55); Platelet Estimate Adequate; Segmented Neutrophils 87 % (50-85); Total Cells Counted 100
[2019-02-26 06:20] LABS: Calcium 9.8 MG/DL (8.5-10.1); Osmolality,Calculated 263.4 MOS/KG (273-304); Risk Ratio 2.01; Thyroid Stimulating Hormone 1.47 uIU/ml (0.358-3.74)
[2019-02-26] MEDS: RANOLAZINE 500 MG TABLET PO SCH ×2 (08:47→23:24)
[2019-02-26] MEDS: MONTELUKAST 10 MG TABLET PO SCH (08:48)
[2019-02-26] MEDS: PANTOPRAZOLE 40 MG TABLET PO SCH ×3 (08:48→23:24)
[2019-02-26] MEDS: CLOPIDOGREL 75 MG TABLET PO SCH (08:48)
[2019-02-26] MEDS: ISOSORBIDE MONONITRATE 60 MG TABLET PO SCH (08:49)
[2019-02-26] MEDS: MULTIVITAMIN (OCUVITE) TABLET PO SCH ×2 (08:49→23:24)
[2019-02-26] MEDS: FUROSEMIDE 40 MG TABLET PO SCH (08:49)
[2019-02-26] MEDS: CALCIUM (CARBONATE)/VITAMIN D 600 MG-400 UNIT TABLET PO SCH ×2 (08:49→23:24)
[2019-02-26] MEDS: LEVOTHYROXINE 75 MCG TABLET PO SCH (08:49)
[2019-02-26] MEDS: ASPIRIN EC 81 MG TABLET PO SCH (08:49)
[2019-02-26] MEDS ORDERED: LABETALOL 100 MG TABLET PO SCH (09:00)
[2019-02-26] MEDS ORDERED: LOSARTAN 25 MG TABLET PO SCH (09:00)
[2019-02-26] MEDS: POLYSACCHARIDE IRON COMPLEX PO SCH (09:29)
[2019-02-26 13:00] LABS: Troponin I < 0.015 NG/ML (0.00-0.045)
[2019-02-26 16:06] LABS: Troponin I < 0.015 NG/ML (0.00-0.045)
[2019-02-26] MEDS: LEVOFLOXACIN INJ 750 MG in PREMIX 1 EACH IV SCH (16:21)
[2019-02-26] MEDS: LABETALOL 100 MG TABLET PO SCH (23:24)
[2019-02-26] MEDS: ENOXAPARIN 40 MG/0.4 ML SYRINGE SUBCUT SCH (23:25)
[2019-02-26] MEDS: LOSARTAN 25 MG TABLET PO SCH (23:25)
[2019-02-26] MEDS: SIMVASTATIN 10 MG TABLET PO SCH (23:25)
[2019-02-27] MEDS: ALBUTEROL/IPRATROPIUM 3 ML NEB RESP TX SCH ×4 (01:09→19:16)
[2019-02-27] MEDS: POLYSACCHARIDE IRON COMPLEX PO SCH ×3 (03:18→20:23)
[2019-02-27 05:06] LABS: Basophils % 0.1 % (0.0-0.8); Hematocrit 31.3 VOL% (35.7-47.0); Hemoglobin 10.4 GM/DL (12.0-16.0); Immature Granulocytes % 0.8 %; Immature Granulocytes Absolute 0.06 #; Lymphocytes # 0.3 10*3/uL (1.4-4.0); Lymphocytes % 3.2 % (21.3-54.2); Mean Corpuscular HGB Conc 33.2 GM/DL (32-36); Mean Corpuscular Volume 103.3 FL (87-102); Mean Platelet Volume 10.9 FL (9.6-12.0); Monocytes % 6.8 % (1.7-12.7); Neutrophils % 89.1 % (38.7-73.9); Platelet Count 268 T/CUMM (130-400); Red Blood Count 3.03 MC/CUMM (3.8-5.5); Red Cell Distribution Width 12.6 % (9.3-17.3); White Blood Count 7.9 T/CUMM (4-12)
[2019-02-27] MEDS: methylPREDNISolone SOD SUC 40 MG/1 ML VIAL IV SCH ×2 (05:10→13:41)
[2019-02-27] MEDS: LEVOTHYROXINE 75 MCG TABLET PO SCH ×2 (05:10→07:06)
[2019-02-27 05:27] LABS: Giant Platelets Few; Hypochromasia 1+; Platelet Estimate Adequate
[2019-02-27 05:49] LABS: Calcium 9.5 MG/DL (8.5-10.1); Osmolality,Calculated 270.2 MOS/KG (273-304)
[2019-02-27] MEDS: ASPIRIN EC 81 MG TABLET PO SCH (09:37)
[2019-02-27] MEDS: LABETALOL 100 MG TABLET PO SCH ×2 (09:37→20:24)
[2019-02-27] MEDS: CALCIUM (CARBONATE)/VITAMIN D 600 MG-400 UNIT TABLET PO SCH ×2 (09:37→20:23)
[2019-02-27] MEDS: RANOLAZINE 500 MG TABLET PO SCH ×2 (09:37→20:23)
[2019-02-27] MEDS: PANTOPRAZOLE 40 MG TABLET PO SCH ×2 (09:37→10:06)
[2019-02-27] MEDS: CLOPIDOGREL 75 MG TABLET PO SCH (09:37)
[2019-02-27] MEDS: MULTIVITAMIN (OCUVITE) TABLET PO SCH ×2 (09:38→20:23)
[2019-02-27] MEDS: LOSARTAN 25 MG TABLET PO SCH ×2 (09:38→20:23)
[2019-02-27] MEDS: ISOSORBIDE MONONITRATE 60 MG TABLET PO SCH (09:38)
[2019-02-27] MEDS: MONTELUKAST 10 MG TABLET PO SCH (09:38)
[2019-02-27] MEDS: FUROSEMIDE 40 MG TABLET PO SCH (09:38)
[2019-02-27] MEDS ORDERED: BISACODYL 5 MG TABLET PO PRN (09:56)
[2019-02-27] MEDS: LEVOFLOXACIN INJ 750 MG in PREMIX 1 EACH IV SCH (17:19)
[2019-02-27] MEDS: ENOXAPARIN 40 MG/0.4 ML SYRINGE SUBCUT SCH (20:23)
[2019-02-27] MEDS: SIMVASTATIN 10 MG TABLET PO SCH (20:24)
[2019-02-28] MEDS: ALBUTEROL/IPRATROPIUM 3 ML NEB RESP TX SCH ×4 (00:01→19:40)
[2019-02-28 05:56] LABS: Basophils % 0.2 % (0.0-0.8); Eosinophils # 0.1 10*3/uL (0.0-0.87); Eosinophils % 0.7 % (0.00-10.9); Hematocrit 30.1 VOL% (35.7-47.0); Hemoglobin 10.2 GM/DL (12.0-16.0); Immature Granulocytes % 0.6 %; Immature Granulocytes Absolute 0.05 #; Lymphocytes # 0.7 10*3/uL (1.4-4.0); Mean Corpuscular HGB Conc 33.9 GM/DL (32-36); Mean Corpuscular Volume 102.7 FL (87-102); Mean Platelet Volume 11.2 FL (9.6-12.0); Monocytes % 11.8 % (1.7-12.7); Neutrophils % 78.7 % (38.7-73.9); Platelet Count 273 T/CUMM (130-400); Red Blood Count 2.93 MC/CUMM (3.8-5.5); Red Cell Distribution Width 12.7 % (9.3-17.3); White Blood Count 8.2 T/CUMM (4-12)
[2019-02-28] MEDS: LEVOTHYROXINE 75 MCG TABLET PO SCH (05:59)
[2019-02-28 06:21] LABS: Calcium 9.3 MG/DL (8.5-10.1); Osmolality,Calculated 264.5 MOS/KG (273-304)
[2019-02-28] MEDS ORDERED: methylPREDNISolone SOD SUC 40 MG/1 ML VIAL IV SCH (09:00)
[2019-02-28] MEDS: CLOPIDOGREL 75 MG TABLET PO SCH (09:16)
[2019-02-28] MEDS: RANOLAZINE 500 MG TABLET PO SCH ×2 (09:16→20:40)
[2019-02-28] MEDS: LABETALOL 100 MG TABLET PO SCH ×2 (09:16→20:40)
[2019-02-28] MEDS: ISOSORBIDE MONONITRATE 60 MG TABLET PO SCH (09:16)
[2019-02-28] MEDS: FUROSEMIDE 40 MG TABLET PO SCH (09:16)
[2019-02-28] MEDS: ASPIRIN EC 81 MG TABLET PO SCH (09:16)
[2019-02-28] MEDS: LOSARTAN 25 MG TABLET PO SCH ×2 (09:16→20:40)
[2019-02-28] MEDS: MONTELUKAST 10 MG TABLET PO SCH (09:16)
[2019-02-28] MEDS: MULTIVITAMIN (OCUVITE) TABLET PO SCH ×2 (09:16→20:40)
[2019-02-28] MEDS: PANTOPRAZOLE 40 MG TABLET PO SCH (09:17)
[2019-02-28] MEDS: CALCIUM (CARBONATE)/VITAMIN D 600 MG-400 UNIT TABLET PO SCH ×2 (09:17→20:41)
[2019-02-28] MEDS: POLYSACCHARIDE IRON COMPLEX PO SCH ×2 (09:19→20:41)
[2019-02-28] MEDS: LEVOFLOXACIN INJ 750 MG in PREMIX 1 EACH IV SCH (17:47)
[2019-02-28] MEDS: ENOXAPARIN 40 MG/0.4 ML SYRINGE SUBCUT SCH (20:41)
[2019-02-28] MEDS: SIMVASTATIN 10 MG TABLET PO SCH (20:41)
[2019-03-01] MEDS: ALBUTEROL/IPRATROPIUM 3 ML NEB RESP TX SCH ×4 (01:30→19:38)
[2019-03-01] MEDS: LEVOTHYROXINE 75 MCG TABLET PO SCH (06:26)
[2019-03-01 06:43] LABS: Calcium 9.1 MG/DL (8.5-10.1); Osmolality,Calculated 259.8 MOS/KG (273-304)
[2019-03-01] MEDS: LOSARTAN 25 MG TABLET PO SCH ×2 (08:51→21:34)
[2019-03-01] MEDS: FUROSEMIDE 40 MG TABLET PO SCH (08:51)
[2019-03-01] MEDS: PANTOPRAZOLE 40 MG TABLET PO SCH (08:51)
[2019-03-01] MEDS: CALCIUM (CARBONATE)/VITAMIN D 600 MG-400 UNIT TABLET PO SCH ×2 (08:51→21:33)
[2019-03-01] MEDS: RANOLAZINE 500 MG TABLET PO SCH ×2 (08:51→21:34)
[2019-03-01] MEDS: ASPIRIN EC 81 MG TABLET PO SCH (08:51)
[2019-03-01] MEDS: MONTELUKAST 10 MG TABLET PO SCH (08:51)
[2019-03-01] MEDS: CLOPIDOGREL 75 MG TABLET PO SCH (08:51)
[2019-03-01] MEDS: ISOSORBIDE MONONITRATE 60 MG TABLET PO SCH (08:51)
[2019-03-01] MEDS: MULTIVITAMIN (OCUVITE) TABLET PO SCH ×2 (08:51→21:33)
[2019-03-01] MEDS: LABETALOL 100 MG TABLET PO SCH ×2 (08:51→21:34)
[2019-03-01] MEDS: LEVOFLOXACIN 750 MG TABLET PO SCH (09:00)
[2019-03-01] MEDS: predniSONE 20 MG TABLET PO SCH (09:01)
[2019-03-01] MEDS ORDERED: BISACODYL 10 MG SUPP RECTAL ONE (10:41)
[2019-03-01] MEDS ORDERED: SODIUM PHOSPHATE ENEMA 133 ML BOTTLE RECTAL ONE (10:42)
[2019-03-01] MEDS ORDERED: POTASSIUM PHOS/SOD PHOS POWDER 250 MG PACK PO ONE (10:43)
[2019-03-01] MEDS ORDERED: MAGNESIUM SULF RIDER 4 GM in PREMIX 1 EACH IV PRN (10:45)
[2019-03-01] MEDS ORDERED: MAGNESIUM SULF RIDER 2 GM in PREMIX 1 EACH IV PRN (10:45)
[2019-03-01] MEDS: POLYSACCHARIDE IRON COMPLEX PO SCH ×2 (11:08→21:34)
[2019-03-01] MEDS: POTASSIUM CHLORIDE 20 MEQ PACK PO ONE ×2 (13:40→15:49)
[2019-03-01] MEDS: POTASSIUM CHLORIDE 20 MEQ TABLET PO PRN ×2 (16:33→16:34)
[2019-03-01] MEDS ORDERED: MAGNESIUM HYDROXIDE SUSP 30 ML UDCUP PO ONE (17:14)
[2019-03-01] MEDS: SIMVASTATIN 10 MG TABLET PO SCH (21:34)
[2019-03-01] MEDS: ENOXAPARIN 40 MG/0.4 ML SYRINGE SUBCUT SCH (21:34)
[2019-03-02] MEDS: ALBUTEROL/IPRATROPIUM 3 ML NEB RESP TX SCH ×4 (00:20→19:43)
[2019-03-02] MEDS: LEVOTHYROXINE 75 MCG TABLET PO SCH (05:34)
[2019-03-02] MEDS: MONTELUKAST 10 MG TABLET PO SCH (09:57)
[2019-03-02] MEDS: PANTOPRAZOLE 40 MG TABLET PO SCH (09:57)
[2019-03-02] MEDS: FUROSEMIDE 40 MG TABLET PO SCH (09:57)
[2019-03-02] MEDS: ISOSORBIDE MONONITRATE 60 MG TABLET PO SCH (09:57)
[2019-03-02] MEDS: RANOLAZINE 500 MG TABLET PO SCH ×2 (09:57→21:29)
[2019-03-02] MEDS: MULTIVITAMIN (OCUVITE) TABLET PO SCH ×2 (09:57→21:29)
[2019-03-02] MEDS: CALCIUM (CARBONATE)/VITAMIN D 600 MG-400 UNIT TABLET PO SCH ×2 (09:58→21:29)
[2019-03-02] MEDS: CLOPIDOGREL 75 MG TABLET PO SCH (09:58)
[2019-03-02] MEDS: POLYSACCHARIDE IRON COMPLEX PO SCH ×2 (09:58→21:30)
[2019-03-02] MEDS: LABETALOL 100 MG TABLET PO SCH ×2 (09:58→21:29)
[2019-03-02] MEDS: LOSARTAN 25 MG TABLET PO SCH ×2 (09:58→21:29)
[2019-03-02] MEDS: LEVOFLOXACIN 750 MG TABLET PO SCH (09:58)
[2019-03-02] MEDS: ASPIRIN EC 81 MG TABLET PO SCH (09:59)
[2019-03-02] MEDS: predniSONE 20 MG TABLET PO SCH (09:59)
[2019-03-02] MEDS: LACTULOSE 20 GM/30 ML UDCUP PO SCH ×3 (09:59→19:08)
[2019-03-02] MEDS ORDERED: TUBERCULIN SKIN TEST 0.1 ML SYRINGE INTRADERM ONE (13:28)
[2019-03-02] MEDS: SIMVASTATIN 10 MG TABLET PO SCH (21:29)
[2019-03-02] MEDS: ENOXAPARIN 40 MG/0.4 ML SYRINGE SUBCUT SCH (21:31)
[2019-03-03] MEDS: LACTULOSE 20 GM/30 ML UDCUP PO SCH ×4 (00:45→14:55)
[2019-03-03] MEDS: ALBUTEROL/IPRATROPIUM 3 ML NEB RESP TX SCH ×4 (01:49→19:42)
[2019-03-03] MEDS: LEVOTHYROXINE 75 MCG TABLET PO SCH (06:20)
[2019-03-03] MEDS ORDERED: MEPERIDINE 50 MG/1 ML VIAL IM ONE (07:00)
[2019-03-03] MEDS ORDERED: PROMETHAZINE 25 MG/1 ML VIAL IM ONE (07:00)
[2019-03-03] MEDS ORDERED: MIDAZOLAM 2 MG/2 ML VIAL ONE (07:15)
[2019-03-03] MEDS ORDERED: MIDAZOLAM 2 MG/2 ML VIAL IV ONE (07:30)
[2019-03-03] MEDS ORDERED: LIDOCAINE 2% VISCOUS 100 ML BOTTLE SWISH/SPIT ONE (07:30)
[2019-03-03] MEDS ORDERED: LIDOCAINE 1% 20 ML VIAL MISC INJ ONE (07:30)
[2019-03-03] MEDS ORDERED: LIDOCAINE 2% 20 ML VIAL RESP TX ONE (07:30)
[2019-03-03] MEDS: LOSARTAN 25 MG TABLET PO SCH ×2 (09:00→20:53)
[2019-03-03] MEDS: POLYSACCHARIDE IRON COMPLEX PO SCH ×2 (09:00→20:54)
[2019-03-03] MEDS: LABETALOL 100 MG TABLET PO SCH ×2 (09:00→20:53)
[2019-03-03] MEDS: ISOSORBIDE MONONITRATE 60 MG TABLET PO SCH (09:00)
[2019-03-03] MEDS: RANOLAZINE 500 MG TABLET PO SCH ×2 (11:42→20:53)
[2019-03-03] MEDS: PANTOPRAZOLE 40 MG TABLET PO SCH (11:42)
[2019-03-03] MEDS: MONTELUKAST 10 MG TABLET PO SCH (11:43)
[2019-03-03] MEDS: predniSONE 20 MG TABLET PO SCH (11:43)
[2019-03-03] MEDS: LEVOFLOXACIN 750 MG TABLET PO SCH (11:43)
[2019-03-03] MEDS: CALCIUM (CARBONATE)/VITAMIN D 600 MG-400 UNIT TABLET PO SCH ×2 (11:44→20:53)
[2019-03-03] MEDS: FUROSEMIDE 40 MG TABLET PO SCH (11:44)
[2019-03-03] MEDS: CLOPIDOGREL 75 MG TABLET PO SCH (11:44)
[2019-03-03] MEDS: MULTIVITAMIN (OCUVITE) TABLET PO SCH ×2 (11:44→20:53)
[2019-03-03] MEDS: ASPIRIN EC 81 MG TABLET PO SCH (11:44)
[2019-03-03 13:08] LABS: Basophils % 0.1 % (0.0-0.8); Eosinophils # 0.1 10*3/uL (0.0-0.87); Eosinophils % 1.3 % (0.00-10.9); Hematocrit 31.6 VOL% (35.7-47.0); Hemoglobin 10.4 GM/DL (12.0-16.0); Immature Granulocytes % 0.5 %; Immature Granulocytes Absolute 0.04 #; Lymphocytes # 0.8 10*3/uL (1.4-4.0); Lymphocytes % 8.9 % (21.3-54.2); Mean Corpuscular HGB Conc 32.9 GM/DL (32-36); Mean Corpuscular Volume 103.3 FL (87-102); Neutrophils % 79.2 % (38.7-73.9); Platelet Count 285 T/CUMM (130-400); Red Blood Count 3.06 MC/CUMM (3.8-5.5); Red Cell Distribution Width 12.6 % (9.3-17.3); White Blood Count 8.7 T/CUMM (4-12)
[2019-03-03 13:30] LABS: Calcium 8.8 MG/DL (8.5-10.1); Osmolality,Calculated 267.2 MOS/KG (273-304)
[2019-03-03] MEDS ORDERED: POTASSIUM CHLORIDE 20 MEQ TABLET PO PRN (16:01)
[2019-03-03] MEDS ORDERED: POTASSIUM CHLORIDE RIDER 10 MEQ in PREMIX 1 EACH IV PRN (16:01)
[2019-03-03] MEDS: ENOXAPARIN 40 MG/0.4 ML SYRINGE SUBCUT SCH (20:53)
[2019-03-03] MEDS: POTASSIUM CHLORIDE 20 MEQ TABLET PO PRN ×2 (20:53→23:16)
[2019-03-03] MEDS: SIMVASTATIN 10 MG TABLET PO SCH (20:53)
[2019-03-04] MEDS: LACTULOSE 20 GM/30 ML UDCUP PO SCH (00:21)
[2019-03-04] MEDS: ALBUTEROL/IPRATROPIUM 3 ML NEB RESP TX SCH ×4 (01:13→20:26)
[2019-03-04] MEDS: POTASSIUM CHLORIDE 20 MEQ TABLET PO PRN ×5 (01:53→15:00)
[2019-03-04] MEDS: LEVOTHYROXINE 75 MCG TABLET PO SCH (05:50)
[2019-03-04] MEDS: ASPIRIN EC 81 MG TABLET PO SCH (09:25)
[2019-03-04] MEDS: LEVOFLOXACIN 750 MG TABLET PO SCH (09:25)
[2019-03-04] MEDS: ISOSORBIDE MONONITRATE 60 MG TABLET PO SCH (09:25)
[2019-03-04] MEDS: LOSARTAN 25 MG TABLET PO SCH ×2 (09:25→22:09)
[2019-03-04] MEDS: RANOLAZINE 500 MG TABLET PO SCH ×2 (09:25→22:09)
[2019-03-04] MEDS: CALCIUM (CARBONATE)/VITAMIN D 600 MG-400 UNIT TABLET PO SCH ×2 (09:26→22:09)
[2019-03-04] MEDS: CLOPIDOGREL 75 MG TABLET PO SCH (09:26)
[2019-03-04] MEDS: PANTOPRAZOLE 40 MG TABLET PO SCH (09:26)
[2019-03-04] MEDS: MULTIVITAMIN (OCUVITE) TABLET PO SCH ×2 (09:26→22:09)
[2019-03-04] MEDS: LABETALOL 100 MG TABLET PO SCH ×2 (09:26→22:09)
[2019-03-04] MEDS: predniSONE 20 MG TABLET PO SCH (09:26)
[2019-03-04] MEDS: POLYSACCHARIDE IRON COMPLEX PO SCH ×2 (09:26→22:11)
[2019-03-04] MEDS: FUROSEMIDE 40 MG TABLET PO SCH (09:26)
[2019-03-04] MEDS: MONTELUKAST 10 MG TABLET PO SCH (09:26)
[2019-03-04 10:33] LABS: Basophils % 0.3 % (0.0-0.8); Eosinophils # 0.1 10*3/uL (0.0-0.87); Eosinophils % 0.5 % (0.00-10.9); Hematocrit 32.6 VOL% (35.7-47.0); Hemoglobin 10.5 GM/DL (12.0-16.0); Immature Granulocytes % 0.5 %; Immature Granulocytes Absolute 0.06 #; Lymphocytes # 0.7 10*3/uL (1.4-4.0); Lymphocytes % 6.6 % (21.3-54.2); Mean Corpuscular HGB Conc 32.2 GM/DL (32-36); Mean Corpuscular Volume 105.5 FL (87-102); Mean Platelet Volume 10.8 FL (9.6-12.0); Monocytes % 7.6 % (1.7-12.7); Neutrophils % 84.5 % (38.7-73.9); Platelet Count 303 T/CUMM (130-400); Red Blood Count 3.09 MC/CUMM (3.8-5.5); Red Cell Distribution Width 12.8 % (9.3-17.3); White Blood Count 10.9 T/CUMM (4-12)
[2019-03-04 10:51] LABS: Calcium 9.4 MG/DL (8.5-10.1)
[2019-03-04 17:02] LABS: Hematocrit 30.8 VOL% (35.7-47.0); Hemoglobin 10.1 GM/DL (12.0-16.0)
[2019-03-04] MEDS: SIMVASTATIN 10 MG TABLET PO SCH (22:11)
[2019-03-05] MEDS: ALBUTEROL/IPRATROPIUM 3 ML NEB RESP TX SCH ×3 (01:35→12:49)
[2019-03-05] MEDS: LEVOTHYROXINE 75 MCG TABLET PO SCH (05:48)
[2019-03-05 08:59] LABS: Hematocrit 31.6 VOL% (35.7-47.0); Hemoglobin 10.3 GM/DL (12.0-16.0)
[2019-03-05 09:08] LABS: Calcium 9.5 MG/DL (8.5-10.1); Osmolality,Calculated 264.5 MOS/KG (273-304)
[2019-03-05] MEDS: POLYSACCHARIDE IRON COMPLEX PO SCH (09:08)
[2019-03-05] MEDS: LEVOFLOXACIN 750 MG TABLET PO SCH (09:11)
[2019-03-05] MEDS: LOSARTAN 25 MG TABLET PO SCH (09:11)
[2019-03-05] MEDS: predniSONE 20 MG TABLET PO SCH (09:11)
[2019-03-05] MEDS: ASPIRIN EC 81 MG TABLET PO SCH (09:11)
[2019-03-05] MEDS: LABETALOL 100 MG TABLET PO SCH (09:11)
[2019-03-05] MEDS: ISOSORBIDE MONONITRATE 60 MG TABLET PO SCH (09:11)
[2019-03-05] MEDS: MULTIVITAMIN (OCUVITE) TABLET PO SCH (09:11)
[2019-03-05] MEDS: MONTELUKAST 10 MG TABLET PO SCH (09:11)
[2019-03-05] MEDS: FUROSEMIDE 40 MG TABLET PO SCH (09:11)
[2019-03-05] MEDS: CALCIUM (CARBONATE)/VITAMIN D 600 MG-400 UNIT TABLET PO SCH (09:11)
[2019-03-05] MEDS: RANOLAZINE 500 MG TABLET PO SCH (09:12)
[2019-03-05] MEDS: PANTOPRAZOLE 40 MG TABLET PO SCH (09:12)
[2019-03-05] MEDS: CLOPIDOGREL 75 MG TABLET PO SCH (09:12)
[2019-03-05 11:30] LABS: INR 0.9; PT Patient Result 10.1 SECS (9.6-12.2)
[2019-03-05 11:32] VITALS: BP 114/67
== END 2019-03-05 13:14 | disposition home health service (06) | DRG 191 ==
LOC: EDUNIT# → EDBD → N.EDINP 12:00 → N.ED 12:00 → SUATTDRO 13:22 → N.5E 15:28 → SUATTDRO 02-27 13:10
PROVIDERS: ADMIT Internal Medicine; ATTEND Internal Medicine Cardiovascular Disease

== ENCOUNTER 2019-03-11 15:24 | Inpatient (IN) ==
[2019-03-11 16:26] LABS: Basophils % 0.3 % (0.0-0.8); Eosinophils # 0.2 10*3/uL (0.0-0.87); Eosinophils % 1.6 % (0.00-10.9); Hematocrit 28.8 VOL% (35.7-47.0); Hemoglobin 9.5 GM/DL (12.0-16.0); Immature Granulocytes % 0.4 %; Immature Granulocytes Absolute 0.05 #; Lymphocytes # 0.5 10*3/uL (1.4-4.0); Lymphocytes % 4.7 % (21.3-54.2); Mean Corpuscular Volume 103.6 FL (87-102); Mean Platelet Volume 11.7 FL (9.6-12.0); Monocytes % 9.9 % (1.7-12.7); Neutrophils % 83.1 % (38.7-73.9); Platelet Count 272 T/CUMM (130-400); Red Blood Count 2.78 MC/CUMM (3.8-5.5); Red Cell Distribution Width 12.7 % (9.3-17.3); White Blood Count 11.2 T/CUMM (4-12)
[2019-03-11] MEDS ORDERED: PANTOPRAZOLE 40 MG VIAL IV STA (16:37)
[2019-03-11] MEDS ORDERED: ONDANSETRON 4 MG/2 ML VIAL IV STA (16:37)
[2019-03-11 16:45] LABS: Albumin 2.9 G/DL (3.4-5.0); Bilirubin,Total 0.4 MG/DL (0.2-1.0); Calcium 8.8 MG/DL (8.5-10.1); Osmolality,Calculated 264.4 MOS/KG (273-304); Total Protein 6.7 G/DL (6.4-8.3)
[2019-03-11 17:04] LABS: INR 0.9; PT Patient Result 9.8 SECS (9.6-12.2)
[2019-03-11 17:09] LABS: Eosinophils 4 % (0-10); Lymphocytes 5 % (20-55); Platelet Estimate Normal; Segmented Neutrophils 85 % (50-85)
[2019-03-11 17:10] LABS: Hypochromasia Slight; Macrocytosis Slight; Total Cells Counted 100
[2019-03-11] MEDS ORDERED: ONDANSETRON 4 MG/2 ML VIAL IV PRN (18:06)
[2019-03-11] MEDS ORDERED: ALBUTEROL/IPRATROPIUM 3 ML NEB RESP TX PRN (18:10)
[2019-03-11] MEDS ORDERED: NITROGLYCERIN SL 0.4 MG TABLET SL PRN (18:10)
[2019-03-11 20:31] LABS: Hemoglobin 8.8 GM/DL (12.0-16.0)
[2019-03-11 20:41] LABS: INR 0.9; PT Patient Result 10.1 SECS (9.6-12.2)
[2019-03-11] MEDS ORDERED: PANTOPRAZOLE 40 MG VIAL IV SCH (21:00)
[2019-03-11] MEDS: SIMVASTATIN 20 MG TABLET PO SCH (21:55)
[2019-03-11] MEDS: BUDESONIDE/FORMOTEROL 160-4.5 INHALER 6 GM INH SCH (21:56)
[2019-03-12 02:10] LABS: Basophils % 0.3 % (0.0-0.8); Eosinophils # 0.3 10*3/uL (0.0-0.87); Eosinophils % 4.3 % (0.00-10.9); Hematocrit 25.2 VOL% (35.7-47.0); Hemoglobin 8.1 GM/DL (12.0-16.0); Immature Granulocytes % 0.3 %; Immature Granulocytes Absolute 0.02 #; Lymphocytes # 0.5 10*3/uL (1.4-4.0); Lymphocytes % 8.6 % (21.3-54.2); Mean Corpuscular HGB Conc 32.1 GM/DL (32-36); Mean Platelet Volume 11.4 FL (9.6-12.0); Monocytes % 11.8 % (1.7-12.7); Neutrophils % 74.7 % (38.7-73.9); Platelet Count 210 T/CUMM (130-400); Red Cell Distribution Width 12.8 % (9.3-17.3); White Blood Count 6.3 T/CUMM (4-12)
[2019-03-12 03:03] LABS: Albumin 2.4 G/DL (3.4-5.0); Bilirubin,Total 0.4 MG/DL (0.2-1.0); Calcium 8.4 MG/DL (8.5-10.1); Osmolality,Calculated 270.8 MOS/KG (273-304); Thyroid Stimulating Hormone 3.61 uIU/ml (0.358-3.74); Total Protein 5.5 G/DL (6.4-8.3)
[2019-03-12] MEDS: LEVOTHYROXINE 75 MCG TABLET PO SCH (06:11)
[2019-03-12] MEDS ORDERED: POTASSIUM CHLORIDE RIDER 10 MEQ in PREMIX 1 EACH IV PRN (07:09)
[2019-03-12] MEDS: LOSARTAN 25 MG TABLET PO SCH (10:14)
[2019-03-12] MEDS: LABETALOL 100 MG TABLET PO SCH (10:14)
[2019-03-12] MEDS: FUROSEMIDE 40 MG TABLET PO SCH (10:15)
[2019-03-12] MEDS: BUDESONIDE/FORMOTEROL 160-4.5 INHALER 6 GM INH SCH ×2 (10:15→22:23)
[2019-03-12] MEDS: PANTOPRAZOLE 40 MG TABLET PO SCH ×2 (10:15→22:22)
[2019-03-12] MEDS: POTASSIUM CHLORIDE 20 MEQ TABLET PO PRN ×4 (10:15→22:22)
[2019-03-12] MEDS: ISOSORBIDE MONONITRATE 60 MG TABLET PO SCH (10:15)
[2019-03-12] MEDS: MONTELUKAST 10 MG TABLET PO SCH (10:15)
[2019-03-12 11:05] LABS: Hematocrit 29.2 VOL% (35.7-47.0); Hemoglobin 9.5 GM/DL (12.0-16.0)
[2019-03-12] MEDS ORDERED: KETOROLAC 15 MG/1 ML VIAL IV ONE (12:16)
[2019-03-12] MEDS ORDERED: KETOROLAC 15 MG/1 ML VIAL IV PRN (15:01)
[2019-03-12] MEDS: SIMVASTATIN 20 MG TABLET PO SCH (22:22)
[2019-03-12] MEDS: POLYETHYLENE GLYCOL POWDER 17 GM PACK PO SCH (22:23)
[2019-03-12] MEDS: MULTIVITAMIN (CENTRUM) TABLET PO SCH (22:23)
[2019-03-13 04:42] LABS: Basophils % 0.2 % (0.0-0.8); Eosinophils # 0.2 10*3/uL (0.0-0.87); Eosinophils % 1.7 % (0.00-10.9); Hematocrit 23.9 VOL% (35.7-47.0); Hemoglobin 7.7 GM/DL (12.0-16.0); Immature Granulocytes % 0.6 %; Immature Granulocytes Absolute 0.05 #; Lymphocytes # 0.4 10*3/uL (1.4-4.0); Lymphocytes % 4.7 % (21.3-54.2); Mean Corpuscular HGB Conc 32.2 GM/DL (32-36); Mean Corpuscular Volume 105.8 FL (87-102); Monocytes % 9.2 % (1.7-12.7); Neutrophils % 83.6 % (38.7-73.9); Platelet Count 211 T/CUMM (130-400); Red Blood Count 2.26 MC/CUMM (3.8-5.5); Red Cell Distribution Width 12.7 % (9.3-17.3); White Blood Count 8.7 T/CUMM (4-12)
[2019-03-13 04:45] LABS: Basophils % 0.2 % (0.0-0.8); Eosinophils # 0.2 10*3/uL (0.0-0.87); Eosinophils % 1.7 % (0.00-10.9); Hematocrit 23.4 VOL% (35.7-47.0); Hemoglobin 7.7 GM/DL (12.0-16.0); Immature Granulocytes % 0.5 %; Immature Granulocytes Absolute 0.04 #; Lymphocytes # 0.4 10*3/uL (1.4-4.0); Lymphocytes % 4.7 % (21.3-54.2); Mean Corpuscular HGB Conc 32.9 GM/DL (32-36); Mean Corpuscular Volume 104.9 FL (87-102); Mean Platelet Volume 12.1 FL (9.6-12.0); Monocytes % 9.9 % (1.7-12.7); Platelet Count 214 T/CUMM (130-400); Red Blood Count 2.23 MC/CUMM (3.8-5.5); Red Cell Distribution Width 12.8 % (9.3-17.3); White Blood Count 8.7 T/CUMM (4-12)
[2019-03-13 05:11] LABS: Eosinophils 1 % (0-10); Hypochromasia 1+; Lymphocytes 2 % (20-55); Platelet Estimate Adequate; Segmented Neutrophils 94 % (50-85); Total Cells Counted 100
[2019-03-13 05:18] LABS: Eosinophils 1 % (0-10); Lymphocytes 2 % (20-55); Macrocytosis Slight; Segmented Neutrophils 90 % (50-85); Total Cells Counted 100
[2019-03-13 05:19] LABS: Albumin 2.4 G/DL (3.4-5.0); Bilirubin,Total 0.9 MG/DL (0.2-1.0); Calcium 8.3 MG/DL (8.5-10.1); Hypochromasia 1+; Osmolality,Calculated 268.1 MOS/KG (273-304); Platelet Estimate Adequate; Total Protein 5.3 G/DL (6.4-8.3)
[2019-03-13 05:23] LABS: Ferritin 214.8 ng/ml (8-252)
[2019-03-13 06:41] LABS: Folate 14.8 NG/ML (5.4-24.0); Vitamin B12 691 PG/ML (211-911)
[2019-03-13 06:45] LABS: Sedimentation Rate-Westergren 123 MM/HR (0-30)
[2019-03-13] MEDS ORDERED: LACTATED RINGERS 1,000 ML IV SCH (07:00)
[2019-03-13] MEDS ORDERED: SODIUM CHLORIDE 0.9% 1,000 ML IV PRN (07:50)
[2019-03-13] MEDS: LEVOTHYROXINE 75 MCG TABLET PO SCH (08:07)
[2019-03-13 09:45] LABS: Hemoglobin A1 (Alkaline) 97.5 % (96.5-98.5); Hemoglobin A2 (Alkaline) 2.5 % (1.5-3.5)
[2019-03-13] MEDS: MULTIVITAMIN (CENTRUM) TABLET PO SCH ×2 (09:49→21:05)
[2019-03-13] MEDS: POLYETHYLENE GLYCOL POWDER 17 GM PACK PO SCH ×4 (09:50→21:22)
[2019-03-13] MEDS: LOSARTAN 25 MG TABLET PO SCH (09:50)
[2019-03-13] MEDS: PANTOPRAZOLE 40 MG TABLET PO SCH ×2 (09:50→21:05)
[2019-03-13] MEDS: FUROSEMIDE 40 MG TABLET PO SCH (09:50)
[2019-03-13] MEDS: MONTELUKAST 10 MG TABLET PO SCH (09:50)
[2019-03-13] MEDS: LABETALOL 100 MG TABLET PO SCH (09:50)
[2019-03-13] MEDS: ISOSORBIDE MONONITRATE 60 MG TABLET PO SCH (09:50)
[2019-03-13] MEDS ORDERED: PROPOFOL 200 MG/20 ML VIAL IV ONE (10:00)
[2019-03-13] MEDS ORDERED: LIDOCAINE 2% 5 ML VIAL ONE (10:00)
[2019-03-13] MEDS ORDERED: ETOMIDATE 20 MG/10 ML VIAL IV ONE (10:00)
[2019-03-13] MEDS ORDERED: ALBUTEROL/IPRATROPIUM 3 ML NEB RESP TX ONE (11:20)
[2019-03-13] MEDS: BUDESONIDE/FORMOTEROL 160-4.5 INHALER 6 GM INH SCH ×2 (13:20→21:05)
[2019-03-13 19:01] LABS: Hematocrit 31.5 VOL% (35.7-47.0); Hemoglobin 10.5 GM/DL (12.0-16.0)
[2019-03-13] MEDS: SIMVASTATIN 20 MG TABLET PO SCH (21:05)
[2019-03-13] MEDS: RANOLAZINE 500 MG TABLET PO SCH (22:45)
[2019-03-14 04:59] LABS: Basophils % 0.1 % (0.0-0.8); Eosinophils # 0.2 10*3/uL (0.0-0.87); Hematocrit 31.6 VOL% (35.7-47.0); Hemoglobin 10.5 GM/DL (12.0-16.0); Immature Granulocytes % 0.3 %; Immature Granulocytes Absolute 0.02 #; Lymphocytes # 0.5 10*3/uL (1.4-4.0); Lymphocytes % 6.2 % (21.3-54.2); Mean Corpuscular HGB Conc 33.2 GM/DL (32-36); Mean Corpuscular Volume 99.1 FL (87-102); Mean Platelet Volume 12.1 FL (9.6-12.0); Monocytes % 12.9 % (1.7-12.7); Neutrophils % 78.5 % (38.7-73.9); Platelet Count 181 T/CUMM (130-400); Red Blood Count 3.19 MC/CUMM (3.8-5.5); Red Cell Distribution Width 14.3 % (9.3-17.3); White Blood Count 7.4 T/CUMM (4-12)
[2019-03-14 05:24] LABS: Albumin 2.3 G/DL (3.4-5.0); Bilirubin,Total 1.2 MG/DL (0.2-1.0); Calcium 8.8 MG/DL (8.5-10.1); Total Protein 5.6 G/DL (6.4-8.3)
[2019-03-14] MEDS: LEVOTHYROXINE 75 MCG TABLET PO SCH (06:36)
[2019-03-14] MEDS: BUDESONIDE/FORMOTEROL 160-4.5 INHALER 6 GM INH SCH ×2 (08:22→20:51)
[2019-03-14] MEDS: PANTOPRAZOLE 40 MG TABLET PO SCH ×2 (08:23→20:51)
[2019-03-14] MEDS: LABETALOL 100 MG TABLET PO SCH (08:23)
[2019-03-14] MEDS: RANOLAZINE 500 MG TABLET PO SCH ×2 (08:23→20:50)
[2019-03-14] MEDS: FUROSEMIDE 40 MG TABLET PO SCH (08:24)
[2019-03-14] MEDS: LOSARTAN 25 MG TABLET PO SCH (08:24)
[2019-03-14] MEDS: ISOSORBIDE MONONITRATE 60 MG TABLET PO SCH (08:24)
[2019-03-14] MEDS: MULTIVITAMIN (CENTRUM) TABLET PO SCH ×2 (08:24→20:51)
[2019-03-14] MEDS: POLYETHYLENE GLYCOL POWDER 17 GM PACK PO SCH ×3 (08:32→20:51)
[2019-03-14] MEDS: MONTELUKAST 10 MG TABLET PO SCH (08:36)
[2019-03-14] MEDS: SIMVASTATIN 20 MG TABLET PO SCH (20:51)
[2019-03-15] MEDS: LEVOTHYROXINE 75 MCG TABLET PO SCH (06:04)
[2019-03-15 08:00] LABS: Hematocrit 31.1 VOL% (35.7-47.0); Hemoglobin 10.2 GM/DL (12.0-16.0)
[2019-03-15] MEDS: MULTIVITAMIN (CENTRUM) TABLET PO SCH ×2 (08:43→21:15)
[2019-03-15] MEDS: LOSARTAN 25 MG TABLET PO SCH (08:43)
[2019-03-15] MEDS: FUROSEMIDE 40 MG TABLET PO SCH (08:43)
[2019-03-15] MEDS: LABETALOL 100 MG TABLET PO SCH (08:43)
[2019-03-15] MEDS: RANOLAZINE 500 MG TABLET PO SCH ×2 (08:43→21:17)
[2019-03-15] MEDS: POLYETHYLENE GLYCOL POWDER 17 GM PACK PO SCH ×3 (08:43→21:15)
[2019-03-15] MEDS: MONTELUKAST 10 MG TABLET PO SCH (08:43)
[2019-03-15] MEDS: ISOSORBIDE MONONITRATE 60 MG TABLET PO SCH (08:43)
[2019-03-15] MEDS: PANTOPRAZOLE 40 MG TABLET PO SCH ×2 (08:43→21:15)
[2019-03-15] MEDS: BUDESONIDE/FORMOTEROL 160-4.5 INHALER 6 GM INH SCH ×3 (08:43→21:35)
[2019-03-15] MEDS ORDERED: ALBUTEROL/IPRATROPIUM 3 ML NEB RESP TX PRN (12:58)
[2019-03-15 13:53] LABS: Basophils % 0.1 % (0.0-0.8); Eosinophils # 0.1 10*3/uL (0.0-0.87); Eosinophils % 0.8 % (0.00-10.9); Hematocrit 30.5 VOL% (35.7-47.0); Hemoglobin 10.1 GM/DL (12.0-16.0); Immature Granulocytes % 0.4 %; Immature Granulocytes Absolute 0.03 #; Lymphocytes # 0.3 10*3/uL (1.4-4.0); Lymphocytes % 3.5 % (21.3-54.2); Mean Corpuscular HGB Conc 33.1 GM/DL (32-36); Mean Corpuscular Volume 99.7 FL (87-102); Mean Platelet Volume 11.8 FL (9.6-12.0); Monocytes % 7.6 % (1.7-12.7); Neutrophils % 87.6 % (38.7-73.9); Platelet Count 213 T/CUMM (130-400); Red Blood Count 3.06 MC/CUMM (3.8-5.5); Red Cell Distribution Width 13.7 % (9.3-17.3); White Blood Count 7.8 T/CUMM (4-12)
[2019-03-15 14:23] LABS: Troponin I < 0.015 NG/ML (0.00-0.045)
[2019-03-15 14:47] LABS: Lymphocytes 2 % (20-55); Platelet Estimate Adequate; Segmented Neutrophils 93 % (50-85); Total Cells Counted 100
[2019-03-15] MEDS: SIMVASTATIN 20 MG TABLET PO SCH (21:17)
[2019-03-16 05:48] LABS: Basophils % 0.3 % (0.0-0.8); Eosinophils # 0.2 10*3/uL (0.0-0.87); Eosinophils % 2.5 % (0.00-10.9); Hematocrit 28.9 VOL% (35.7-47.0); Hemoglobin 9.4 GM/DL (12.0-16.0); Immature Granulocytes % 0.3 %; Immature Granulocytes Absolute 0.02 #; Lymphocytes # 0.4 10*3/uL (1.4-4.0); Lymphocytes % 5.8 % (21.3-54.2); Mean Corpuscular HGB Conc 32.5 GM/DL (32-36); Mean Platelet Volume 12.7 FL (9.6-12.0); Monocytes % 10.1 % (1.7-12.7); Platelet Count 216 T/CUMM (130-400); Red Blood Count 2.92 MC/CUMM (3.8-5.5); Red Cell Distribution Width 13.3 % (9.3-17.3)
[2019-03-16] MEDS: LEVOTHYROXINE 75 MCG TABLET PO SCH (06:00)
[2019-03-16 06:07] LABS: Albumin 2.2 G/DL (3.4-5.0); Bilirubin,Total 0.8 MG/DL (0.2-1.0); Calcium 8.3 MG/DL (8.5-10.1); Osmolality,Calculated 261.4 MOS/KG (273-304); Total Protein 5.5 G/DL (6.4-8.3)
[2019-03-16] MEDS: RANOLAZINE 500 MG TABLET PO SCH ×2 (09:15→20:27)
[2019-03-16] MEDS: LOSARTAN 25 MG TABLET PO SCH (09:16)
[2019-03-16] MEDS: PANTOPRAZOLE 40 MG TABLET PO SCH ×2 (09:16→20:27)
[2019-03-16] MEDS: MULTIVITAMIN (CENTRUM) TABLET PO SCH ×2 (09:16→20:27)
[2019-03-16] MEDS: FUROSEMIDE 40 MG TABLET PO SCH (09:16)
[2019-03-16] MEDS: ISOSORBIDE MONONITRATE 60 MG TABLET PO SCH (09:16)
[2019-03-16] MEDS: MONTELUKAST 10 MG TABLET PO SCH (09:16)
[2019-03-16] MEDS: BUDESONIDE/FORMOTEROL 160-4.5 INHALER 6 GM INH SCH ×2 (09:17→20:27)
[2019-03-16] MEDS: POLYETHYLENE GLYCOL POWDER 17 GM PACK PO SCH ×3 (09:17→20:36)
[2019-03-16] MEDS: LABETALOL 100 MG TABLET PO SCH (09:17)
[2019-03-16] MEDS: SIMVASTATIN 20 MG TABLET PO SCH (20:27)
[2019-03-17] MEDS: LEVOTHYROXINE 75 MCG TABLET PO SCH (06:01)
[2019-03-17 07:42] VITALS: BP 171/98
[2019-03-17] MEDS: ISOSORBIDE MONONITRATE 60 MG TABLET PO SCH (08:47)
[2019-03-17] MEDS: LOSARTAN 25 MG TABLET PO SCH (08:47)
[2019-03-17] MEDS: MULTIVITAMIN (CENTRUM) TABLET PO SCH (08:47)
[2019-03-17] MEDS: MONTELUKAST 10 MG TABLET PO SCH (08:48)
[2019-03-17] MEDS: RANOLAZINE 500 MG TABLET PO SCH (08:48)
[2019-03-17] MEDS: FUROSEMIDE 40 MG TABLET PO SCH (08:48)
[2019-03-17] MEDS: PANTOPRAZOLE 40 MG TABLET PO SCH (08:49)
[2019-03-17] MEDS: LABETALOL 100 MG TABLET PO SCH (08:50)
[2019-03-17] MEDS: BUDESONIDE/FORMOTEROL 160-4.5 INHALER 6 GM INH SCH (08:50)
[2019-03-17] MEDS: POLYETHYLENE GLYCOL POWDER 17 GM PACK PO SCH (08:51)
== END 2019-03-17 11:51 | disposition home or self-care (01) | DRG 813 ==
LOC: N.ED 15:24 → SUATTDRO 18:06 → N.EDINP 18:06 → N.2E 18:47 → N.CC 03-15 12:56 → N.2E 03-16 01:49
PROVIDERS: ADMIT Hospitalist; ATTEND Hospitalist

== ENCOUNTER 2019-08-14 12:21 | Observation (INO) ==
[2019-08-14 13:33] LABS: Basophils % 0.4 % (0.0-0.8); Eosinophils % 0.8 % (0.00-10.9); Hematocrit 41.1 VOL% (35.7-47.0); Hemoglobin 13.9 GM/DL (12.0-16.0); Immature Granulocytes % 0.2 %; Immature Granulocytes Absolute 0.01 #; Lymphocytes # 0.5 10*3/uL (1.4-4.0); Lymphocytes % 9.9 % (21.3-54.2); Mean Corpuscular HGB Conc 33.8 GM/DL (32-36); Mean Corpuscular Volume 94.5 FL (87-102); Mean Platelet Volume 11.7 FL (9.6-12.0); Monocytes % 6.2 % (1.7-12.7); Neutrophils % 82.5 % (38.7-73.9); Platelet Count 176 T/CUMM (130-400); Red Blood Count 4.35 MC/CUMM (3.8-5.5); Red Cell Distribution Width 14.7 % (9.3-17.3); White Blood Count 5.3 T/CUMM (4-12)
[2019-08-14 13:57] LABS: Albumin 3.4 G/DL (3.4-5.0); Bilirubin,Total 0.6 MG/DL (0.2-1.0); Osmolality,Calculated 266.4 MOS/KG (273-304); Total Protein 6.9 G/DL (6.4-8.3)
[2019-08-14] MEDS ORDERED: BISACODYL 5 MG TABLET PO PRN (15:12)
[2019-08-14] MEDS ORDERED: ONDANSETRON 4 MG/2 ML VIAL IV PRN (15:12)
[2019-08-14] MEDS ORDERED: ACETAMINOPHEN 325 MG TABLET PO PRN (15:12)
[2019-08-14] MEDS ORDERED: NITROGLYCERIN SL 0.4 MG TABLET SL PRN (15:16)
[2019-08-14] MEDS ORDERED: ALBUTEROL/IPRATROPIUM 3 ML NEB RESP TX PRN (15:16)
[2019-08-14] MEDS ORDERED: LORazepam 1 MG TABLET PO PRN (15:31)
[2019-08-14] MEDS ORDERED: LORazepam 0.5 MG TABLET PO PRN (15:32)
[2019-08-14 16:23] LABS: Risk Ratio 2.04; Thyroid Stimulating Hormone 3.49 uIU/ml (0.358-3.74); VLDL CHOLESTEROL 13.2 MG/DL
[2019-08-14] MEDS: ASPIRIN 325 MG TABLET PO SCH (17:56)
[2019-08-14 18:14] LABS: Folate 11.1 NG/ML (5.4-24.0)
[2019-08-14 18:18] LABS: Apearance,Urine CLEAR (Clear); Bilirubin,Urine Negative (Negative); Blood, Urine Negative (Negative); Glucose,Urine (UA) Negative (Negative); Ketones,Urine Negative (Negative); Nitrite,Urine Negative (Negative); Protein,Urine Negative; RBC,Urine <1 /HPF (0-4); Squamous Epithelial Cell,Urine Occasional /HPF (0-10); Urine Color Straw (Yellow); Urine Specific Gravity 1.041 (1.001-1.035); Urine Urobilinogen < 2.0 EU/DL (0.2-1.0); WBC,Urine 2 /HPF (0-6)
[2019-08-14 20:07] LABS: Barbiturates Screen,Urine Negative (Negative); Benzodiazepines Screen,Urine Negative (Negative); Cannabinoid Screen,Urine Negative (Negative); Opiate Screen,Urine Negative (Negative); Phencyclidine Screen,Urine Negative (Negative)
[2019-08-14] MEDS: RANOLAZINE 500 MG TABLET PO SCH (20:53)
[2019-08-14] MEDS: MULTIVITAMIN (OCUVITE) TABLET PO SCH (20:53)
[2019-08-14] MEDS: CALCIUM (CARBONATE)/VITAMIN D 600 MG-400 UNIT TABLET PO SCH (20:53)
[2019-08-14] MEDS ORDERED: ATORVASTATIN 80 MG TABLET PO SCH (21:00)
[2019-08-14] MEDS: BUDESONIDE/FORMOTEROL 160-4.5 INHALER 6 GM INH SCH (21:50)
[2019-08-15 05:46] LABS: Calcium 8.9 MG/DL (8.5-10.1); Osmolality,Calculated 271.1 MOS/KG (273-304)
[2019-08-15] MEDS: RANOLAZINE 500 MG TABLET PO SCH (08:20)
[2019-08-15] MEDS: CALCIUM (CARBONATE)/VITAMIN D 600 MG-400 UNIT TABLET PO SCH (08:21)
[2019-08-15] MEDS: MULTIVITAMIN (OCUVITE) TABLET PO SCH (08:21)
[2019-08-15] MEDS: ASPIRIN 325 MG TABLET PO SCH (08:21)
[2019-08-15] MEDS: BUDESONIDE/FORMOTEROL 160-4.5 INHALER 6 GM INH SCH (08:25)
[2019-08-15] MEDS ORDERED: THIAMINE 100 MG TABLET PO SCH (09:00)
[2019-08-15] MEDS ORDERED: LABETALOL 100 MG TABLET PO SCH (09:00)
[2019-08-15] MEDS ORDERED: MULTIVITAMIN (CENTRUM) TABLET PO SCH (09:00)
[2019-08-15] MEDS ORDERED: ISOSORBIDE MONONITRATE 60 MG TABLET PO SCH (09:00)
[2019-08-15] MEDS ORDERED: PANTOPRAZOLE 40 MG TABLET PO SCH (09:00)
[2019-08-15] MEDS ORDERED: CHOLECALCIFEROL 5,000 UNIT TABLET PO SCH (09:00)
[2019-08-15] MEDS ORDERED: FUROSEMIDE 40 MG TABLET PO SCH (09:00)
[2019-08-15] MEDS ORDERED: POTASSIUM CHLORIDE 20 MEQ TABLET PO SCH (09:00)
[2019-08-15] MEDS ORDERED: MONTELUKAST 10 MG TABLET PO SCH (09:00)
[2019-08-15] MEDS ORDERED: LOSARTAN 25 MG TABLET PO SCH (09:00)
[2019-08-15] MEDS ORDERED: FOLIC ACID 1 MG TABLET PO SCH (09:00)
[2019-08-15 13:21] VITALS: BP 157/78
== END 2019-08-15 15:49 | disposition home or self-care (01) ==
LOC: EDUNIT# → EDBD → N.ED 12:21 → N.EDINP 12:21 → N.2E 16:55
PROVIDERS: ADMIT Internal Medicine; ATTEND Internal Medicine

== ENCOUNTER 2021-04-27 10:05 | Observation (INO) ==
[2021-04-27] MEDS ORDERED: THIAMINE INJ 100 MG, FOLIC ACID INJ 1 MG, MAGNESIUM SULF INJ 2 GM, MULTIVITAMIN INJ 10 ... IV ONE (10:59)
[2021-04-27 11:24] LABS: Basophils % 0.5 % (0.0-0.8); Eosinophils # 0.1 10*3/uL (0.0-0.87); Eosinophils % 0.9 % (0.00-10.9); Hematocrit 40.8 VOL% (35.7-47.0); Hemoglobin 13.8 GM/DL (12.0-16.0); Immature Granulocytes % 0.3 %; Immature Granulocytes Absolute 0.02 #; Lymphocytes # 0.6 10*3/uL (1.4-4.0); Lymphocytes % 9.2 % (21.3-54.2); Mean Corpuscular HGB Conc 33.8 GM/DL (32-36); Mean Corpuscular Volume 103.6 FL (87-102); Mean Platelet Volume 12.4 FL (9.6-12.0); Monocytes % 5.6 % (1.7-12.7); Neutrophils % 83.5 % (38.7-73.9); Platelet Count 162 T/CUMM (130-400); Red Blood Count 3.94 MC/CUMM (3.8-5.5); Red Cell Distribution Width 12.3 % (9.3-17.3); White Blood Count 6.7 T/CUMM (4-12)
[2021-04-27 11:44] LABS: Albumin 3.5 G/DL (3.4-5.0); Bilirubin,Total 0.6 MG/DL (0.20-1.00); Osmolality,Calculated 273.1 MOS/KG (273-304); Potassium 4.3 MMOL/L (3.5-5.1); Total Protein 6.5 G/DL (6.4-8.2)
[2021-04-27 12:04] LABS: Macrocytosis Slight
[2021-04-27 12:05] LABS: Platelet Estimate Normal
[2021-04-27] MEDS ORDERED: ACETAMINOPHEN 325 MG TABLET PO PRN (13:55)
[2021-04-27] MEDS ORDERED: LORazepam 2 MG/1 ML VIAL IV PRN (13:55)
[2021-04-27] MEDS ORDERED: GLUCAGON 1 MG VIAL IM PRN (13:55)
[2021-04-27] MEDS ORDERED: DEXTROSE 50% 25 GM/50 ML VIAL IV PRN (13:55)
[2021-04-27] MEDS ORDERED: ONDANSETRON 4 MG/2 ML VIAL IV PRN (13:55)
[2021-04-27 14:31] LABS: Thyroid Stimulating Hormone 8.54 uIU/ml (0.358-3.74)
[2021-04-27] MEDS: PANTOPRAZOLE 40 MG TABLET PO SCH (15:02)
[2021-04-27] MEDS: ENOXAPARIN 40 MG/0.4 ML SYRINGE SUBCUT SCH (15:02)
[2021-04-27 16:39] LABS: Free T4 (Free Thyroxine) 1.05 NG/DL (0.76-1.46)
[2021-04-27] MEDS: SIMVASTATIN 20 MG TABLET PO SCH (20:06)
[2021-04-27] MEDS: RANOLAZINE 500 MG TABLET PO SCH (20:06)
[2021-04-28 00:47] LABS: Bacteria,Urine Occasional /HPF (Few); Bilirubin,Urine Negative (Negative); Blood, Urine Small mg/dL (Negative); Glucose,Urine (UA) Negative (Negative); Hyaline Casts,Urine 34 /LPF (0-3); Ketones,Urine Negative (Negative); Mucus,Urine Occasional /LPF (Occasional); Nitrite,Urine Negative (Negative); Protein,Urine Negative; RBC,Urine 4 /HPF (0-4); Squamous Epithelial Cell,Urine Occasional /HPF (0-10); Urine Appearance CLOUDY (Clear); Urine Color Amber (Yellow); Urine Specific Gravity 1.017 (1.001-1.035); Urine Urobilinogen < 2.0 EU/DL (0.2-1.0)
[2021-04-28 06:04] LABS: Basophils % 0.8 % (0.0-0.8); Eosinophils # 0.2 10*3/uL (0.0-0.87); Eosinophils % 4.2 % (0.00-10.9); Hematocrit 35.7 VOL% (35.7-47.0); Hemoglobin 11.9 GM/DL (12.0-16.0); Immature Granulocytes % 0.3 %; Immature Granulocytes Absolute 0.01 #; Lymphocytes # 0.7 10*3/uL (1.4-4.0); Lymphocytes % 18.4 % (21.3-54.2); Mean Corpuscular HGB Conc 33.3 GM/DL (32-36); Mean Corpuscular Volume 106.3 FL (87-102); Mean Platelet Volume 13.4 FL (9.6-12.0); Monocytes % 11.6 % (1.7-12.7); Neutrophils % 64.7 % (38.7-73.9); Platelet Count 118 T/CUMM (130-400); Red Blood Count 3.36 MC/CUMM (3.8-5.5); Red Cell Distribution Width 12.4 % (9.3-17.3); White Blood Count 3.5 T/CUMM (4-12)
[2021-04-28 06:31] LABS: Anisocytosis 1+; Platelet Estimate Adequate
[2021-04-28 06:32] LABS: Macrocytosis 1+
[2021-04-28] MEDS: RANOLAZINE 500 MG TABLET PO SCH ×2 (08:40→21:15)
[2021-04-28] MEDS: FOLIC ACID 1 MG TABLET PO SCH (08:40)
[2021-04-28] MEDS: ASPIRIN EC 81 MG TABLET PO SCH (08:40)
[2021-04-28] MEDS: MULTIVITAMIN (CENTRUM) TABLET PO SCH (08:40)
[2021-04-28] MEDS: ISOSORBIDE MONONITRATE 30 MG TABLET PO SCH (08:40)
[2021-04-28] MEDS: LEVOTHYROXINE 75 MCG TABLET PO SCH (08:41)
[2021-04-28] MEDS: LOSARTAN 50 MG TABLET PO SCH (08:41)
[2021-04-28] MEDS: SPIRONOLACTONE 25 MG TABLET PO SCH (08:41)
[2021-04-28] MEDS: THIAMINE 100 MG TABLET PO SCH (08:41)
[2021-04-28] MEDS: PANTOPRAZOLE 40 MG TABLET PO SCH (08:41)
[2021-04-28] MEDS: LABETALOL 100 MG TABLET PO SCH (08:42)
[2021-04-28] MEDS: cefTRIAXone 1,000 MG in SODIUM CHLORIDE 0.9% 100 ML IV SCH (10:57)
[2021-04-28] MEDS: ENOXAPARIN 40 MG/0.4 ML SYRINGE SUBCUT SCH (15:10)
[2021-04-28] MEDS: SIMVASTATIN 20 MG TABLET PO SCH (21:15)
[2021-04-29 06:12] LABS: Basophils % 0.5 % (0.0-0.8); Eosinophils # 0.2 10*3/uL (0.0-0.87); Eosinophils % 4.2 % (0.00-10.9); Hematocrit 38.5 VOL% (35.7-47.0); Hemoglobin 12.8 GM/DL (12.0-16.0); Immature Granulocytes % 0.2 %; Immature Granulocytes Absolute 0.01 #; Lymphocytes # 0.5 10*3/uL (1.4-4.0); Lymphocytes % 10.4 % (21.3-54.2); Mean Corpuscular HGB Conc 33.2 GM/DL (32-36); Mean Corpuscular Volume 105.8 FL (87-102); Mean Platelet Volume 12.7 FL (9.6-12.0); Monocytes % 9.9 % (1.7-12.7); Neutrophils % 74.8 % (38.7-73.9); Red Blood Count 3.64 MC/CUMM (3.8-5.5); Red Cell Distribution Width 12.2 % (9.3-17.3); White Blood Count 4.3 T/CUMM (4-12)
[2021-04-29 06:13] LABS: Platelet Count 120 T/CUMM (130-400)
[2021-04-29] MEDS: LABETALOL 100 MG TABLET PO SCH (09:06)
[2021-04-29] MEDS: LOSARTAN 50 MG TABLET PO SCH (09:06)
[2021-04-29] MEDS: ISOSORBIDE MONONITRATE 30 MG TABLET PO SCH (09:06)
[2021-04-29] MEDS: MULTIVITAMIN (CENTRUM) TABLET PO SCH (09:06)
[2021-04-29] MEDS: RANOLAZINE 500 MG TABLET PO SCH (09:06)
[2021-04-29] MEDS: cefTRIAXone 1,000 MG in SODIUM CHLORIDE 0.9% 100 ML IV SCH (09:07)
[2021-04-29] MEDS: FOLIC ACID 1 MG TABLET PO SCH (09:07)
[2021-04-29] MEDS: LEVOTHYROXINE 75 MCG TABLET PO SCH (09:07)
[2021-04-29] MEDS: ASPIRIN EC 81 MG TABLET PO SCH (09:07)
[2021-04-29] MEDS: THIAMINE 100 MG TABLET PO SCH (09:07)
[2021-04-29] MEDS: PANTOPRAZOLE 40 MG TABLET PO SCH (09:07)
[2021-04-29] MEDS: SPIRONOLACTONE 25 MG TABLET PO SCH (09:07)
[2021-04-29 09:34] VITALS: BP 191/87
== END 2021-04-29 11:49 | disposition home health service (06) ==
LOC: N.ED 10:05 → N.EDINP 10:05 → SUATTDRO 13:30 → N.TELEN 16:40
PROVIDERS: ADMIT Hospitalist; ATTEND Internal Medicine

== ENCOUNTER 2021-05-28 22:29 | Observation (INO) ==
[2021-05-28] MEDS ORDERED: methylPREDNISolone SOD SUC 125 MG/2 ML VIAL IV STA (22:59)
[2021-05-28] MEDS ORDERED: SODIUM CHLORIDE 0.9% 500 ML IV STA (22:59)
[2021-05-28] MEDS ORDERED: ALBUTEROL/IPRATROPIUM 3 ML NEB RESP TX STA (22:59)
[2021-05-28 23:46] LABS: Basophils % 0.6 % (0.0-0.8); Eosinophils # 0.1 10*3/uL (0.0-0.87); Eosinophils % 1.8 % (0.00-10.9); Hematocrit 39.4 VOL% (35.7-47.0); Immature Granulocytes % 0.5 %; Immature Granulocytes Absolute 0.03 #; Lymphocytes # 0.6 10*3/uL (1.4-4.0); Lymphocytes % 8.5 % (21.3-54.2); Mean Corpuscular Volume 102.9 FL (87-102); Mean Platelet Volume 12.1 FL (9.6-12.0); Monocytes % 7.4 % (1.7-12.7); Neutrophils % 81.2 % (38.7-73.9); Platelet Count 137 T/CUMM (130-400); Red Blood Count 3.83 MC/CUMM (3.8-5.5); Red Cell Distribution Width 12.3 % (9.3-17.3); White Blood Count 6.6 T/CUMM (4-12)
[2021-05-29 00:31] LABS: Alanine Aminotransferase 13 U/L (13-56); Albumin 3.2 G/DL (3.4-5.0); Alkaline Phosphatase 89 U/L (45-117); Aspartate Amino Transferase 12 U/L (0-37); Blood Urea Nitrogen 18 MG/DL (7-18); Carbon Dioxide 30 MMOL/L (21-32); Estimated Glom Filtration Rate 50 ML/MIN; Glucose 114 MG/DL (74-106); Osmolality,Calculated 268.4 MOS/KG (273-304); Potassium 3.3 MMOL/L (3.5-5.1); Sodium 133 MMOL/L (136-145); Total Protein 6.5 G/DL (6.4-8.2)
[2021-05-29] MEDS ORDERED: CLINDAMYCIN INJ 600 MG/50 ML PREMIX IV STA (00:38)
[2021-05-29] MEDS ORDERED: GLUCAGON 1 MG VIAL IM PRN (01:38)
[2021-05-29] MEDS ORDERED: DEXTROSE 50% 25 GM/50 ML VIAL IV PRN (01:38)
[2021-05-29] MEDS ORDERED: ACETAMINOPHEN 325 MG TABLET PO PRN (01:56)
[2021-05-29] MEDS ORDERED: ONDANSETRON 4 MG/2 ML VIAL IV PRN (01:56)
[2021-05-29] MEDS ORDERED: POTASSIUM CHLORIDE 20 MEQ TABLET PO PRN (02:03)
[2021-05-29] MEDS ORDERED: ALBUTEROL/IPRATROPIUM 3 ML NEB RESP TX PRN (02:04)
[2021-05-29 03:35] LABS: Barbiturates Screen,Urine Negative (Negative); Benzodiazepines Screen,Urine Negative (Negative); Cannabinoid Screen,Urine Negative (Negative); Opiate Screen,Urine Negative (Negative); Phencyclidine Screen,Urine Negative (Negative)
[2021-05-29 03:37] LABS: Bilirubin,Urine Negative (Negative); Blood, Urine Negative (Negative); Glucose,Urine (UA) Negative (Negative); Hyaline Casts,Urine 13 /LPF (0-3); Ketones,Urine Negative (Negative); Mucus,Urine Occasional /LPF (Occasional); Nitrite,Urine Negative (Negative); Protein,Urine 30 MG/DL; RBC,Urine 7 /HPF (0-4); Squamous Epithelial Cell,Urine Occasional /HPF (0-10); Urine Appearance CLOUDY (Clear); Urine Color Yellow (Yellow); Urine Specific Gravity 1.012 (1.001-1.035)
[2021-05-29] MEDS ORDERED: ENOXAPARIN 40 MG/0.4 ML SYRINGE SUBCUT SCH (08:00)
[2021-05-29 08:18] LABS: Albumin 3.1 G/DL (3.4-5.0); Bilirubin,Total 0.5 MG/DL (0.20-1.00); Calcium 8.9 MG/DL (8.5-10.1); Osmolality,Calculated 272.2 MOS/KG (273-304); Total Protein 6.2 G/DL (6.4-8.2)
[2021-05-29] MEDS ORDERED: PANTOPRAZOLE 40 MG TABLET PO SCH (09:00)
[2021-05-29] MEDS ORDERED: cefTRIAXone 1,000 MG in SODIUM CHLORIDE 0.9% 100 ML IV SCH (11:00)
[2021-05-29] MEDS ORDERED: SODIUM CHLORIDE 0.9% 500 ML IV ONE (13:12)
[2021-05-29 17:12] VITALS: BP 147/58
== END 2021-05-29 18:05 | disposition home or self-care (01) ==
LOC: EDUNIT# → EDBD → N.ED 22:29 → N.EDINP 22:29 → N.2W 05-29 02:48
PROVIDERS: ADMIT Internal Medicine; ATTEND Internal Medicine